=== PATIENT | female | born 2000 | race Caucasian/White ===

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

== ENCOUNTER 2021-06-14 17:26 | Emergency (ER) | payer MEDICAID, SELFPAY ==
[2021-06-14 17:26] VITALS: BP 122/83; PULSE 85; RESP 16; TEMP 36; O2SAT 100; BMI 27.8
--- NOTE | 2021-06-14 17:58 | ED.VIS.FEGU ---
HPI HPI - Female History of Present Illness Chief Complaint: Vag Bld, Preg Informant: patient Bleeding Issue: Positive for Vaginal bleeding Onset: Yesterday Context: Gradual Onset Associated Symptoms P: 1 Ab: 0 Narrative Narrative: Patient presents secondary to vaginal bleeding with . She states her last menstrual period was May 14. She had a couple home positive test. Yesterday she started spotting and today has slightly heavier bleeding. It is not as heavy as a regular. But she does have to wear a panty liner or pad. She does not have significant cramping or pain. This is her second , first only been complicated by premature . 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 PFSH PFSH Medical History no medical history no medical history Allergy/AdvReac Type Severity Reaction Status Date / Time sulfamethoxazole Allergy Rash Verified 06/14/21 17:29 [From Bactrim] trimethoprim [From Bactrim] Allergy Rash Verified 06/14/21 17:29 Social History Smoking Status: Former smoker ROS ROS ED Constitutional Constitutional ED: Denies chills or fever(s) Eyes Eyes: Denies change in vision ENT ENT ED: Denies sore throat Cardiovascular Cardiovascular: Denies chest pain Respiratory/Chest Respiratory/Chest: Denies cough or dyspnea Gastrointestinal Gastrointestinal: Denies abdominal pain, diarrhea, nausea or vomiting Genitourinary Genitourinary ED: Reports other Details: Vaginal bleeding ; Denies dysuria Musculoskeletal Musculoskeletal: Denies back pain Integumentary Denies rash Neurologic Neurologic: Denies headache(s) or weakness Psychiatric Psychiatric: Denies anxiety or depression Allergic/Immunologic Allergic/Immunologic ED: Denies urticaria EXAM Physical Exam Const Vital Signs: 06/14/21 17:26 Temperature 96.8 F L Temperature Source Temporal Pulse Rate 85 Respiratory Rate 16 Blood Pressure 122/83 H Blood Pressure Mean 96 Pulse Ox 100 Oxygen Delivery Method Room Air Positive well nourished and well developed General Appearance ED: well developed HEENT Reports normocephalic and head/scalp atraumatic Eyes PERRL and EOMs intact bilaterally Neck supple Chest Wall inspection of chest normal and palpation of chest normal Resp normal respiratory effort and clear to auscultation bilaterally Cardio regular rate and regular rhythm GI normal to inspection, nondistended, normoactive bowel sounds, soft to palpation and non-tender Palpation: soft Extremity normal to inspection Neuro oriented x3 and no sensory deficits noted Sensorium / Orientation: alert Motor Exam: strength 5/5 throughout Psych mental status grossly normal Skin no rashes or lesions noted [facility] Lab Data Labs: Laboratory Results - last 24 hr 06/14/21 06/14/21 18:20 18:20 HCG, Quant 12 H Blood Type O POSITIVE Discharge Plan Triage Chief Complaint: Vag Bld, Preg ED Provider: Marguerite Rick Dx/Rx/DC Orders Clinical Impression: Miscarriage, threatened, early Instructions: ED Possible Miscarriage ... Primary Care Provider: Care Physician,No Primary Referrals: Silvina Tidwell MD [STAFF PHYSICIAN] - As soon as possible Care Physician,No Primary [Primary Care Provider] - Disposition Disposition: Home, Self Care
[2021-06-14 19:34] LABS: hCG Titer Quant., Serum 12 mIU/mL (1-3)
[2021-06-14 21:06] VITALS: BP 131/66; PULSE 65; RESP 18; O2SAT 98
== END 2021-06-14 21:06 | disposition home or self-care (01) ==
PROVIDERS: Emergency Provider Emergency Medicine
DX: O20.0 Threatened abortion (principal); Z87.891 Personal history of nicotine dependence; Z3A.00 Weeks of gestation of pregnancy not specified
CPT/HCPCS: 84702; 86900; 86901; 99283; A4216

== ENCOUNTER → 2021-06-16 09:19 | Outpatient (CLI) | payer MEDICAID, SELFPAY ==
[2021-06-16 10:17] LABS: hCG Titer Quant., Serum 5 mIU/mL (1-3)
== END ==
PROVIDERS: Visit Provider Emergency Medicine
DX: O20.0 Threatened abortion (principal); Z3A.00 Weeks of gestation of pregnancy not specified
CPT/HCPCS: 36415; 84702

== ENCOUNTER 2023-02-22 22:34 | Emergency (ER) | payer MEDICAID, SELFPAY ==
[2023-02-22 22:35] VITALS: BP 129/76; PULSE 73; RESP 15; TEMP 36.4; O2SAT 98; BMI 30.2
--- NOTE | 2023-02-22 23:27 | EDS_ITS ---
HPI History of Present Illness Chief Complaint: Abd Pain Informant: patient Onset/Context/Timing Onset: Hours Timing: Waxes and wanes Current Severity: Mild Maximum Severity: Moderate Narrative Narrative: Patient presents with right lower quadrant pain for the past couple of hours. She is currently 14 weeks . She had no bleeding or spotting. No urinary symptoms. She still has her gallbladder and appendix. No fever or chills. She is able to eat dinner tonight without difficulty. PFSH PFSH Medical History no medical history no medical history Allergy/AdvReac Type Severity Reaction Status Date / Time sulfamethoxazole Allergy Rash Verified 06/14/21 17:29 [From Bactrim] trimethoprim [From Bactrim] Allergy Rash Verified 06/14/21 17:29 Social History Smoking Status: Former smoker ROS ROS ED Constitutional Constitutional ED: Denies chills or fever(s) Eyes Eyes: Denies change in vision or discharge from eye(s) ENT ENT ED: Denies discharge from eye(s), rhinorrhea or sore throat Cardiovascular Cardiovascular: Denies chest pain or palpitations Respiratory/Chest Respiratory/Chest: Denies cough or dyspnea Gastrointestinal Gastrointestinal: Reports abdominal pain; Denies diarrhea, nausea or vomiting Genitourinary Genitourinary ED: Denies dysuria Musculoskeletal Musculoskeletal: Denies back pain or extremity pain Integumentary Denies Abrasions or rash Neurologic Neurologic: Denies headache(s) or weakness Psychiatric Psychiatric: Denies anxiety or depression Allergic/Immunologic Allergic/Immunologic ED: Denies lip swelling or urticaria EXAM Physical Exam Const Vital Signs: 02/22/23 22:35 02/23/23 00:44 Temperature 97.5 F L Temperature Source Temporal Pulse Rate 73 62 Respiratory Rate 15 16 Blood Pressure 129/76 H 116/71 Blood Pressure Mean 93 86 Pulse Ox 98 98 Oxygen Delivery Method Room Air Room Air Positive well nourished and well developed General Appearance ED: well developed HEENT Reports normocephalic and head/scalp atraumatic Eyes PERRL and EOMs intact bilaterally Neck supple Chest Wall inspection of chest normal and palpation of chest normal Resp normal respiratory effort and clear to auscultation bilaterally Cardio regular rate and regular rhythm GI GI Narrative: Moderate tenderness in the right lower quadrant. No palpable masses. Hypoactive but present bowel sounds. No guarding or rebound. Palpation: soft Back/Spine no CVA tenderness Extremity normal to inspection Neuro oriented x3 and no sensory deficits noted Sensorium / Orientation: alert Motor Exam: strength 5/5 throughout Psych mental status grossly normal Skin no rashes or lesions noted MDM MDM MDM Narrative Medical decision making narrative: Labwork obtained to evaluate for leukocytosis, anemia, and electrolyte derangement. Urinalysis obtained to evaluate for infection/hematuria. Lab Data Attestation: I reviewed the patient's lab results. Labs: Laboratory Results - last 24 hr 02/22/23 23:20 WBC 13.0 H RBC 3.91 L Hgb 12.4 Hct 37.4 MCV 95.7 MCH 31.7 MCHC 33.2 RDW Std Deviation 43.8 RDW Coeff of Megha 12.5 Plt Count 285 MPV 11.1 Immature Gran % (Auto) 0.500 Neut % (Auto) 71.8 H Lymph % (Auto) 21.0 [place] % (Auto) 5.7 Eos % (Auto) 0.8 Baso % (Auto) 0.2 Absolute Neuts (auto) 9.4 H Absolute Lymphs (auto) 2.73 Nucleated RBC % 0 Sodium 137 Potassium 3.6 Chloride 105 Carbon Dioxide 25.0 Anion Gap 7 BUN 9 Creatinine 0.60 Estim Creat Clear Calc 109.10 Est GFR (MDRD) Af Amer 157 Est GFR (MDRD) Non-Af 130 BUN/Creatinine Ratio 15.0 Glucose 103 Calcium 9.0 Urine Color Yellow Urine Clarity Clear Urine pH 6.0 Ur Specific [place] 1.015 Urine Protein Negative Urine Glucose (UA) Normal Urine Ketones Negative Urine Occult Blood Negative Urine Nitrite Negative Urine Bilirubin Negative Urine Urobilinogen Normal Ur Leukocyte Esterase 25 H Urine RBC 0 SEEN Urine WBC 0-5 SEEN Ur Squamous Epith Cells 0-5 SEEN Urine Bacteria RARE Urine Mucus 0 SEEN Treatment and Re-Evaluation :: CBC reveals a white blood cell count of 13.0 with 72% neutrophils. Chemistry studies are unremarkable. Urinalysis reveals no evidence of infection. heart tones are measured at 163. On repeat evaluation patient continues to have focal tenderness in the right lower quadrant only. There is no guarding or rebound. I spoke with Dr. De La Garza. Given the patient has focal tenderness, I do still consider appendicitis on my differential. At this time she has no other symptoms of appendicitis. Was well recommended follow-up in their office later today. If the patient develops a fever or worsening pain she is to return to the emergency room. Just prior to discharge patient states that she did note a sore throat today and does get strep frequently. Rapid strep was obtained and negative at this time. Discharge Plan Triage Chief Complaint: Abd Pain ED Provider: Marguerite Rick Dx/Rx/DC Orders Clinical Impression: Second trimester , Abdominal pain Instructions: ED Abdominal Pain Unkn Cause Fem Primary Care Provider: Care Physician,No Primary Referrals: Taryn De La Garza DO [Med Staff - Active Staff] - 1 Day Care Physician,No Primary [Primary Care Provider] - Activity Restrictions/Additional Instructions: As discussed, please follow-up with the JEWELRY ENGRAVER office today. Please call the office 8 AM to be seen for repeat exam today. If you develop a fever or worsened symptoms, please return to the emergency room for further testing. Disposition Disposition: Home, Self Care
[2023-02-22 23:45] LABS: Absolute Lymphocyte Count 2.73 X10^3/uL (0.83-4.51); Absolute Neutrophil Count 9.4 X10^3/uL (2.0-7.7); Basophil# 0.02 X10^3/uL; Basophil% 0.2 % (0-1); Eosinophil# 0.11 X10^3/uL; Eosinophils% 0.8 % (0-5); Hematocrit 37.4 % (37-47); Hemoglobin 12.4 g/dL (12.0-15.0); Lymphocyte # 2.73 X10^3/ul (0.83-4.51); Mean Corp Hgb Conc 33.2 g/dL (32-36); Mean Corpuscular Hgb 31.7 pg (27.0-32.0); Mean Corpuscular Volume 95.7 fL (81-99); Mean Platelet Vol. 11.1 fl (6.2-12.0); Monocyte# 0.74 X10^3/uL; Monocyte% 5.7 % (0-10); Mucous, Urine 0 SEEN /hpf (<or=2+); NRBC Flagged by Analyzer 0 % (0-5); Neutrophil # 9.36 X10^3/uL (2.7-7.7); Neutrophil % 71.8 % (47-70); Platelet Count 285 K/mm3 (150-450); RBC Distribution Width CV 12.5 % (11.6-14.6); RBC Distribution Width SD 43.8 fl (35.1-43.9); Red Blood Cells-Urine 0 SEEN /hpf (0-5); Red Blood Count 3.91 M/mm3 (4.2-5.4)
[2023-02-22] MEDS: 0.9% Normal Saline 1,000 ML 150 ML IV (23:48)
[2023-02-22 23:56] LABS: Color, Urine Yellow (Yellow); Glucose, Dipstick Normal (Normal); Ketone-Dipstick Negative (Negative); Leukocyte Esterase-Dipstick 25 /ul (Negative); Nitrite-Dipstick Negative (Negative); Occult Blood-Urine Negative /ul (Negative); Protein-Dipstick Negative (Negative); Specific Gravity, Urine 1.015 (1.002-1.030); Urine Bilirubin Dipstick Negative (Negative); Urine Clarity Clear (Clear); Urine Urobilinogen Normal (Normal)
[2023-02-22 23:58] LABS: Anion Gap 7 (5-15); BUN 9 mg/dL (7-18); Chloride 105 mmol/L (98-107); EST Glomerular Filtration Rate 130 mL/min (>60); Est Glom Filt Rate - Afr Amer 157 mL/min (>60); Glucose 103 mg/dL (74-106); Potassium 3.6 mmol/L (3.5-5.1); Sodium Level 137 mmol/L (136-145)
[2023-02-23 00:16] LABS: Bacteria RARE /hpf (None Seen); Squamous Epithelial Cells - UA 0-5 SEEN /hpf (5-10); White Blood Cells 0-5 SEEN /hpf (0-5)
[2023-02-23 00:44] VITALS: BP 116/71; PULSE 62; RESP 16; O2SAT 98
[2023-02-23 01:26] VITALS: PULSE 76; RESP 16; O2SAT 98
== END 2023-02-23 01:30 | disposition home or self-care (01) ==
PROVIDERS: Emergency Provider Emergency Medicine; Visit Provider Emergency Medicine
DX: O26.892 Other specified pregnancy related conditions, second trimester (principal); O99.891 Other specified diseases and conditions complicating pregnancy; R10.31 Right lower quadrant pain; R11.0 Nausea; Z3A.14 14 weeks gestation of pregnancy; Z87.891 Personal history of nicotine dependence
CPT/HCPCS: 80048; 81001; 85025; 87880; 99284; A4216

== ENCOUNTER 2023-02-23 10:02 | Emergency (ER) | payer MEDICAID, SELFPAY ==
[2023-02-23 10:04] VITALS: BP 114/73; PULSE 97; RESP 14; TEMP 36.9; O2SAT 98; BMI 30.3
--- NOTE | 2023-02-23 10:33 | US_ITS ---
STUDY: SECOND AND THIRD TRIMESTER OBSTETRICAL ULTRASOUND - LIMITED REASON FOR EXAM: Female, 22 years old . Right lower quadrant pain. LMP: November 13, 2022. PRIOR ULTRASOUND: None. TECHNIQUE: Transabdominal TECHNICAL QUALITY: Adequate. FINDINGS: There is a single intrauterine fetus. The fetus is in a cephalic presentation. There is demonstrated cardiac activity with a heart rate of 158 bpm. There is a normal amniotic fluid volume. The amniotic fluid index (JOSH) is within normal limits. The placenta is posterior in location and is not low lying. There are Grade 0 placental changes. The cervix measures 3.2 cm in length. BIOMETRY: BPD: 2.8 cm: 15 weeks, 0 days HC: 10.3 cm: 14 weeks, 6 days AC: 8.5 cm: 4 weeks, 6 days FL: 1.4 cm: 14 weeks, 1 days Age by LMP: 14 weeks, 4 days. MARIANNA by LMP: August 20, 2023. age by current US: 14 weeks, 5 days. MARIANNA by current US: August 19, 2023. Estimated weight: 99 grams, +/- 15 grams, 30 percentile. US/OB Limited With Biometrics IMPRESSION: Single live intrauterine gestation with mean gestational age of 14 weeks and 5 days. Electronically Signed: Wing Mendoza MD at 12:43 EDT ,
--- NOTE | 2023-02-23 10:33 | ED.VIS.GI ---
HPI HPI - GI History of Present Illness Chief Complaint: Abd Pain Narrative Narrative: 22-year-old female currently 14 weeks presenting with right lower quadrant abdominal pain. She states she was seen for this last evening at [facility]. She states that they did discuss the possibility of an appendicitis given the patient has a little bit of an elevated white blood cell count at 13. Her pain started rather abruptly about 3 hours before she was seen in the ER last evening. She states she generally does not feel well. She denies diarrhea or constipation. She denies urinary complaints and actually had a negative urinalysis last night. She was checked for strep last night and this was negative. Patient given return precautions especially if she gets a fever and she thought she had a fever 100.7 today she did not take anything that would mask a fever and her temperature is 98.4 when she arrives. She again states she does not feel very well. She has no history of kidney stones. PFSH PFSH Allergy/AdvReac Type Severity Reaction Status Date / Time sulfamethoxazole Allergy Rash Verified 02/23/23 10:06 [From Bactrim] trimethoprim [From Bactrim] Allergy Rash Verified 02/23/23 10:06 Social History Smoking Status: Former smoker EXAM Physical Exam Const Vital Signs: 02/23/23 10:04 02/23/23 12:33 02/23/23 14:42 Temperature 98.4 F Temperature Source Temporal Pulse Rate 97 82 78 Respiratory Rate 14 16 16 Blood Pressure 114/73 129/63 H 119/84 H Blood Pressure Mean 86 85 95 Pulse Ox 98 Oxygen Delivery Method Room Air Room Air Positive well nourished General Appearance ED: NAD; Negative for pallor HEENT Reports moist mucous membranes normocephalic and atraumatic Eyes PERRL and EOMs intact bilaterally Resp normal respiratory effort Cardio regular rate and regular rhythm GI Palpation: tender RLQ Back/Spine no CVA tenderness Neuro CN's II-XII intact bilaterally Sensorium / Orientation: alert, oriented to person, oriented to place and oriented to time Motor Exam: strength 5/5 throughout Psych mental status grossly normal Skin General Skin Exam: Negative for jaundice or pallor MDM MDM MDM Narrative Medical decision making narrative: Patient presenting again with right-sided lower abdominal pain. She was given precautions to return if she develops a fever and had a fever 100.7 today and did not take anything. She arrives afebrile. Vital signs are stable. She is well-appearing. She does have tenderness in the right lower quadrant. She has confirmed intrauterine by ultrasound and has not had a history of an ectopic. I will test her for COVID and influenza as this not been checked. IV will be established and I will obtain CBC to assess white blood cell count, hemoglobin, platelets. CMP to assess liver function, renal function, electrolytes. hCG quantitative. After discussion with the patient we will obtain a obstetric ultrasound prior to any CT imaging. She declined anything for pain or nausea. Patient's white blood cell count is 12.0 which is slightly lower however she has more of a left shift today. CMP was unremarkable. Serum quant 17,074. Obstetrics ultrasound was obtained and shows a live intrauterine at 14 weeks 5 days. No ectopic is noted. patient continued to have pain and we discussed getting a CAT scan to rule out appendicitis given her right lower quadrant pain. We discussed the risk and benefits. She wants to have the CT done. I recommended for going to do the CT we do with oral and IV contrast and she was amenable to this. This was obtained and was ultimately negative for appendicitis. 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 Return precautions were discussed. Impression: 1. Right lower quadrant abdominal pain 2. Nausea 3. Second trimester Lab Data Attestation: I reviewed the patient's lab results. Labs: Laboratory Results - last 24 hr 02/23/23 02/23/23 10:15 10:58 WBC 12.0 H RBC 4.23 Hgb 13.3 Hct 40.6 MCV 96.0 MCH 31.4 MCHC 32.8 RDW Std Deviation 44.7 H RDW Coeff of Megha 12.6 Plt Count 271 MPV 11.7 Immature Gran % (Auto) 0.300 Neut % (Auto) 88.9 H Lymph % (Auto) 5.4 L [place] % (Auto) 4.8 Eos % (Auto) 0.3 Baso % (Auto) 0.3 Absolute Neuts (auto) 10.6 H Absolute Lymphs (auto) 0.64 L Nucleated RBC % 0 Sodium 137 Potassium 4.0 Chloride 107 Carbon Dioxide 23.0 Anion Gap 7 BUN 6 L Creatinine 0.65 Estim Creat Clear Calc 100.71 Est GFR (MDRD) Af Amer 145 Est GFR (MDRD) Non-Af 120 BUN/Creatinine Ratio 9.3 L Glucose 86 Calcium 9.0 Total Bilirubin 0.40 AST 23 ALT 21 Alkaline Phosphatase 63 Total Protein 7.2 Albumin 3.1 L Globulin 4.1 Albumin/Globulin Ratio 0.8 L Lipase 24 HCG, Quant [id number] H Radiography Diagnostic Testing: Clinical Impression(s) from Imaging Studies Obstetrics Ultrasound 02/23/23 10:33 IMPRESSION: Single live intrauterine gestation with mean gestational age of 14 weeks and 5 days. Electronically Signed: Wing Mendoza MD at 12:43 EDT , Abdomen/Pelvis CT 02/23/23 14:28 IMPRESSION: No acute abnormalities in the abdomen or pelvis. Specifically, no evidence of acute appendicitis. Minimal bilateral hydroureteronephrosis most likely related to . Electronically Signed: Mike Cisneros MD at 17:22 EDT , Discharge Plan Triage Chief Complaint: Abd Pain ED Provider: Derek Lopez Dx/Rx/DC Orders Instructions: ED Abdominal Pain Unkn Cause Fem, ED Abdominal Pain, Early Primary Care Provider: Care Physician,No Primary Referrals: Taryn De La Garza DO [Med Staff - Active Staff] - As soon as possible Care Physician,No Primary [Primary Care Provider] - Disposition Disposition: Home, Self Care Discharge Date/Time: 02/23/23 17:41
[2023-02-23 10:58] LABS: Absolute Lymphocyte Count 0.64 X10^3/uL (0.83-4.51); Absolute Neutrophil Count 10.6 X10^3/uL (2.0-7.7); Basophil# 0.03 X10^3/uL; Basophil% 0.3 % (0-1); Eosinophil# 0.04 X10^3/uL; Eosinophils% 0.3 % (0-5); Hematocrit 40.6 % (37-47); Hemoglobin 13.3 g/dL (12.0-15.0); Lymphocyte # 0.64 X10^3/ul (0.83-4.51); Lymphocyte % 5.4 % (19-41); Mean Corp Hgb Conc 32.8 g/dL (32-36); Mean Corpuscular Hgb 31.4 pg (27.0-32.0); Mean Platelet Vol. 11.7 fl (6.2-12.0); Monocyte# 0.58 X10^3/uL; Monocyte% 4.8 % (0-10); NRBC Flagged by Analyzer 0 % (0-5); Neutrophil # 10.63 X10^3/uL (2.7-7.7); Neutrophil % 88.9 % (47-70); Platelet Count 271 K/mm3 (150-450); RBC Distribution Width CV 12.6 % (11.6-14.6); RBC Distribution Width SD 44.7 fl (35.1-43.9); Red Blood Count 4.23 M/mm3 (4.2-5.4)
--- NOTE | 2023-02-23 11:02 | CM.ED ---
Social Work Note Referral Source: case find Referral Reason: no PCP SW met with patient and introduced herself and role as [facility] Claims Consultant. Patient lying on hospital bed and agreeable to speak with SW with guest present. SW inquired about patient's insurance and current PCP. Patient verified insurance and reports no current PCP. SW provided patient with a list of local PCPs in network with patient's insurance and accepting new patients. Patient was receptive towards list and voiced no other needs. SW remains available if needs arise. Yu Gomez AIRPORT DUTY MANAGER, KATHY
[2023-02-23 11:20] LABS: ALB/GLOB Ratio 0.8 RATIO (0.9-2.4); AST(SGOT) 23 U/L (15-37); Alanine Aminotransfer ALT/SGPT 21 U/L (13-56); Albumin, Serum 3.1 g/dL (3.2-5.0); Alkaline Phosphatase 63 U/L (45-117); Anion Gap 7 (5-15); BUN 6 mg/dL (7-18); BUN/Creat Ratio 9.3 RATIO (10-20); Chloride 107 mmol/L (98-107); Creatinine, Serum 0.65 mg/dL (0.55-1.02); EST Glomerular Filtration Rate 120 mL/min (>60); Est Glom Filt Rate - Afr Amer 145 mL/min (>60); Estimated Creatinine Clearance 100.71 ml/min; Globulin 4.1 g/dL (2.2-4.2); Glucose 86 mg/dL (74-106); Lipase 24 U/L (13-75); Protein, Total 7.2 g/dL (6.4-8.2); Sodium Level 137 mmol/L (136-145)
[2023-02-23 12:00] LABS: hCG Titer Quant., Serum 17074 mIU/mL (1-3)
[2023-02-23 12:33] VITALS: BP 129/63; PULSE 82; RESP 16
--- NOTE | 2023-02-23 14:28 | CT_ITS ---
INDICATION: rlq abd pain -- IV PO Contrast EXAMINATION: CT Abdomen And Pelvis W/ Contrast Injection TECHNIQUE: Helically acquired images were obtained of the abdomen and pelvis after IV contrast. A radiation dose optimization technique was used for this scan. IV Contrast dosage and agent: Oral and amp; IV Gastrografin and amp; 100mL [id number]-[id number] Oral contrast: None. COMPARISON: None. FINDINGS: Visualized lung bases: Unremarkable Liver: Unremarkable Gallbladder: Unremarkable Spleen: Unremarkable Pancreas: Unremarkable Adrenal Glands: Unremarkable Kidneys: minimal bilateral hydroureteronephrosis. Vasculature: Unremarkable GI Tract: The appendix is normal. Lymphadenopathy: None Peritoneum: No ascites. Bladder: Unremarkable Reproductive organs: Single intrauterine gestation visualized. Bones/Soft tissues: No suspicious osseous or soft tissue lesions CT/Abdomen/Pelvis WITH Contrast IMPRESSION: No acute abnormalities in the abdomen or pelvis. Specifically, no evidence of acute appendicitis. Minimal bilateral hydroureteronephrosis most likely related to . Electronically Signed: Mike Cisneros MD at 17:22 EDT ,
[2023-02-23] MEDS: Contrast Allergy Safety Check IV (14:39)
[2023-02-23 14:42] VITALS: BP 119/84; PULSE 78; RESP 16
[2023-02-23] MEDS: Acetaminophen 325 MG Tablet 650 MG PO (17:35)
== END 2023-02-23 17:41 | disposition home or self-care (01) ==
PROVIDERS: Emergency Provider Student in an Organized Health Care Education/Training Program; Visit Provider Student in an Organized Health Care Education/Training Program
DX: O26.892 Other specified pregnancy related conditions, second trimester (principal); O99.891 Other specified diseases and conditions complicating pregnancy; R10.31 Right lower quadrant pain; R11.0 Nausea; Z3A.14 14 weeks gestation of pregnancy; Z87.891 Personal history of nicotine dependence
CPT/HCPCS: 74177; 76816; 80053; 83690; 84702; 85025; 87428; 99284; Q9967; A4216

== ENCOUNTER 2023-08-03 16:20 | Inpatient (IN) | payer MEDICAID, SELFPAY ==
[2023-08-03] VITALS (26 sets, daily range): BP systolic 115–151; BP diastolic 57–97; PULSE 78–104; TEMP 36.5–37.8; O2SAT 97–100; BMI 34.7
--- NOTE | 2023-08-03 13:07 | OB.TRI.NOTE ---
HPI - General General Date of Admission: 08/03/23 Date of Service: 08/03/23 Chief Complaint: vaginal bleeding HPI Narrative COLLIN HWANG, is a 22 3 para 1 who had a cervical exam 2 days ago and denies any other trauma or intercourse presents complaining of some small amount of vaginal bleeding. She feels some irregular contractions. No leaking of fluid. No other complaints today. Maternal Data Information Final MARIANNA: 08/20/23 Gestational age: 37 4/7 PFSH PFSH Allergy/AdvReac Type Severity Reaction Status Date / Time sulfamethoxazole Allergy Rash Verified 08/03/23 07:02 [From Bactrim] trimethoprim [From Bactrim] Allergy Rash Verified 08/03/23 07:02 Social History Smoking Status: Former smoker Physical Exam Narrative Abdomen: Soft, nondistended, gravid appropriate for gestational age Extremities trace edema. Cervical exam: 3/70/-2, no blood on exam, vtx NST FHR Rate Baby A Baseline: 135 Variability:: Moderate Accelerations:: 15 x 15 Decelerations:: None NST Reactive:: Yes FHR Category:: Category I Uterine Activity:: irreg ctxs Assessment & Plan (1) 37 weeks gestation of : PLAN: No active vaginal bleeding. heart tones category 1 for more than 20 minutes for discharge. No evidence of labor. Follow-up in the office as scheduled or return as needed. Patient is comfortable with plan. O+ blood type (2) False labor after 37 completed weeks of gestation:
[2023-08-03 16:17] LABS: ROM Internal Control Test YES-OK TO RESULT pt. (Internal QC)
[2023-08-03 16:21] LABS: ROM Patient Test POSITIVE (Negative); Record Kit Lot#, ROM+ K1374
[2023-08-03] MEDS: Lactated Ringers 1,000 ML 50 ML IV (17:00)
[2023-08-03 17:13] LABS: Absolute Lymphocyte Count 2.76 X10^3/uL (0.83-4.51); Absolute Neutrophil Count 12.4 X10^3/uL (2.0-7.7); Basophil# 0.08 X10^3/uL; Basophil% 0.5 % (0-1); Eosinophil# 0.08 X10^3/uL; Eosinophils% 0.5 % (0-5); Hematocrit 34.8 % (37-47); Hemoglobin 11.5 g/dL (12.0-15.0); Lymphocyte # 2.76 X10^3/ul (0.83-4.51); Mean Corpuscular Hgb 31.8 pg (27.0-32.0); Mean Corpuscular Volume 96.1 fL (81-99); Mean Platelet Vol. 10.6 fl (6.2-12.0); Monocyte# 0.82 X10^3/uL; Monocyte% 5.1 % (0-10); NRBC Flagged by Analyzer 0 % (0-5); Neutrophil # 12.38 X10^3/uL (2.7-7.7); Neutrophil % 76.2 % (47-70); Platelet Count 375 K/mm3 (150-450); RBC Distribution Width CV 12.3 % (11.6-14.6); RBC Distribution Width SD 43.5 fl (35.1-43.9); Red Blood Count 3.62 M/mm3 (4.2-5.4); White Blood Count 16.2 K/mm3 (4.4-11.0)
[2023-08-03] MEDS: Penicillin G Pot 5,000,000 UNITS in 0.9% Normal Saline (100mL MB+) 100 ML 150 UNITS IV (17:17)
[2023-08-03 18:30] LABS: Syphilis Antibodies Non-reactive
[2023-08-03] MEDS: Oxytocin 15 Units/NS 250ml 15 UNITS/250 ML IV.SOLN 2 UNITS IV (19:28)
[2023-08-03] MEDS: Penicillin G 3,000,000 Units 50 ML 100 UNITS IV (21:09)
[2023-08-03] MEDS: LACTATED RINGERS 500 ML 999 ML IV (22:47)
[2023-08-03] MEDS: 0.9% Saline Lock 10 ML Syringe IV (22:55)
[2023-08-03] MEDS: Ondansetron 4 MG/2 ML Vial IV (22:55)
[2023-08-03] MEDS: fentaNYL-bupivacaine (epidural) 100 ML BAG EPIDURAL (23:32)
[2023-08-04] VITALS (38 sets, daily range): BP systolic 104–130; BP diastolic 53–67; PULSE 65–101; RESP 16–18; TEMP 36.3–36.9; O2SAT 92–99
--- NOTE | 2023-08-04 00:23 | PCM.HP.OB ---
HPI - General General Date of Admission: 08/03/23 Date of Service: 08/03/23 Chief Complaint: leaking of fluid HPI Narrative COLLIN HWANG, is a 22 F 3 para 1-0-1-1 1 who presents complaining of irregular contractions with spontaneous rupture of membranes on 08/03/2023 at approximately 3:15 PM. is complicated to date by history of a delivery at 31 weeks with her previous child. She had a short cervix during the and was on progesterone. Social history significant for tobacco use but quit when she found out she was . Past medical history significant for a positive herpes blood test but no history of outbreaks. Maternal Data Information Final MARIANNA: 08/20/23 Gestational age: 37 4/ 7 [facility] Medical History (Updated 08/04/23 @ 00:[address] Carito Samaniego MD) Cystic fibrosis carrier Genital herpes affecting History of pre-term labor depression Allergy/AdvReac Type Severity Reaction Status Date / Time sulfamethoxazole Allergy Rash Verified 08/03/23 07:02 [From Bactrim] trimethoprim [From Bactrim] Allergy Rash Verified 08/03/23 07:02 Social History Smoking Status: Former smoker History Elective abortions Hx Para 1 Spontaneous abortions Hx # Term Pregnancies Ectopic pregnancies Hx # Pregnancies Multiple births # of living children ROS Constitutional Constitutional: Denies fatigue, fever(s) or malaise Eyes Eyes: Denies change in vision ENT HEENT: Denies dizziness or headache(s) Cardiovascular Cardiovascular: Denies chest pain, dyspnea or lightheadedness Respiratory/Chest Respiratory/Chest: Denies cough or dyspnea Gastrointestinal Gastrointestinal: Denies change in bowel habits Genitourinary Genitourinary: Denies burning urination or genital lesions Integumentary Integumentary: Denies rash Neurologic Neurologic: Denies confusion, dizziness, headache(s), numbness or weakness Vital Signs Vital Signs Vital Signs: 08/03/23 06:56 08/03/23 06:57 08/03/23 06:57 Temperature Temperature Source Temporal Pulse Rate 82 Blood Pressure 121/71 H BP Systolic 121 BP Diastolic 71 Pulse Ox 08/03/23 06:56 08/03/23 07:39 08/03/23 07:39 Temperature 98.0 F 98.1 F Temperature Source Temporal Pulse Rate Blood Pressure BP Systolic BP Diastolic Pulse Ox 08/03/23 07:41 08/03/23 07:41 08/03/23 16:18 Temperature Temperature Source Pulse Rate 78 Blood Pressure 128/68 H 123/66 H BP Systolic 128 123 BP Diastolic 68 66 Pulse Ox 08/03/23 16:18 08/03/23 17:15 08/03/23 17:15 Temperature Temperature Source Pulse Rate 83 90 Blood Pressure 120/74 BP Systolic 120 BP Diastolic 74 Pulse Ox 08/03/23 19:19 08/03/23 19:19 08/03/23 19:20 Temperature Temperature Source Temporal Pulse Rate 87 Blood Pressure 122/69 H BP Systolic 122 BP Diastolic 69 Pulse Ox 08/03/23 19:20 08/03/23 19:20 08/03/23 16:18 Temperature 99.1 F Temperature Source Tympanic Pulse Rate 90 Blood Pressure BP Systolic BP Diastolic Pulse Ox 08/03/23 16:18 08/03/23 18:00 08/03/23 18:00 Temperature 100.0 F H 99.3 F H Temperature Source Tympanic Pulse Rate Blood Pressure BP Systolic BP Diastolic Pulse Ox 08/03/23 20:08 08/03/23 20:09 08/03/23 20:09 Temperature Temperature Source Temporal Pulse Rate 80 Blood Pressure 128/64 H BP Systolic 128 BP Diastolic 64 Pulse Ox 08/03/23 20:08 08/03/23 21:09 08/03/23 21:09 Temperature 98.0 F Temperature Source Pulse Rate 80 Blood Pressure 129/73 H BP Systolic 129 BP Diastolic 73 Pulse Ox 08/03/23 21:09 08/03/23 21:09 08/03/23 21:09 Temperature 98.2 F Temperature Source Temporal Pulse Rate 88 Blood Pressure BP Systolic BP Diastolic Pulse Ox 08/03/23 22:09 08/03/23 22:09 08/03/23 22:09 Temperature Temperature Source Pulse Rate 82 Blood Pressure 128/97 H BP Systolic 128 BP Diastolic 97 Pulse Ox 97 08/03/23 22:10 08/03/23 22:10 08/03/23 23:00 Temperature 98.6 F Temperature Source Temporal Temporal Pulse Rate Blood Pressure BP Systolic BP Diastolic Pulse Ox 08/03/23 23:00 08/03/23 23:00 08/03/23 23:00 Temperature Temperature Source Pulse Rate 98 Blood Pressure 115/57 L BP Systolic 115 BP Diastolic 57 Pulse Ox 99 08/03/23 23:00 08/03/23 23:19 08/03/23 23:19 Temperature 97.7 F L Temperature Source Pulse Rate 96 Blood Pressure 124/70 H BP Systolic 124 BP Diastolic 70 Pulse Ox 08/03/23 23:18 08/03/23 23:24 08/03/23 23:24 Temperature Temperature Source Pulse Rate 84 Blood Pressure 119/60 BP Systolic 119 BP Diastolic 60 Pulse Ox 100 08/03/23 23:23 08/03/23 23:31 08/03/23 23:31 Temperature Temperature Source Pulse Rate 104 H Blood Pressure 151/89 H BP Systolic 151 BP Diastolic 89 Pulse Ox 100 08/03/23 23:34 08/03/23 23:34 08/03/23 23:39 Temperature Temperature Source Pulse Rate 93 99 Blood Pressure 131/82 H BP Systolic 131 BP Diastolic 82 Pulse Ox 08/03/23 23:39 08/03/23 23:40 08/03/23 23:40 Temperature Temperature Source Pulse Rate 99 Blood Pressure 133/80 H BP Systolic 133 BP Diastolic 80 Pulse Ox 100 08/03/23 23:43 08/03/23 23:43 08/03/23 23:50 Temperature Temperature Source Pulse Rate 103 H Blood Pressure 128/72 H 127/71 H BP Systolic 128 127 BP Diastolic 72 71 Pulse Ox 08/03/23 23:50 08/03/23 23:49 Temperature Temperature Source Pulse Rate 100 Blood Pressure BP Systolic BP Diastolic Pulse Ox 100 Weight Weight: 83.461 kg Body Mass Index (BMI) 34.7 Physical Exam Const alert and no apparent distress General Appearance: cooperative HEENT normocephalic Resp normal respiratory effort Cardio regular rate GI soft to palpation GI Narrative: gravid, nontender, appropriate for gestational age Extremity no calf tenderness General Extremity: edema Skin no wounds Rashes: No rashes noted Psych activity/motor behavior normal Labs Labs Labs: Blood Type O POSITIVE Antibody Screen NEGATIVE Hct 34.8 % (37-47) L Hgb 11.5 g/dL (12.0-15.0) L Obstetrics Ultrasound Syphilis Total Ab Non-reactive Assessment & Plan (1) 37 weeks gestation of : PLAN: 37-4/7 weeks gestation on 08/03/2023 upon admission. May have routine pain control measures as needed. Estimated weight is less than 4500 g and pelvis clinically adequate to expect vaginal delivery. Pitocin augmentation as needed. (2) Spontaneous onset of labor:
--- NOTE | 2023-08-04 01:15 | EX.PCM.OBRPT ---
Assessment & Plan (1) Spontaneous onset of labor: (2) 37 weeks gestation of : Maternal Data Information Final MARIANNA: 08/20/23 Gestational age: 37 5/7 Vaginal Delivery Maternal Presentation Maternal Presentation: Active Labor and Spontaneous Rupture of Membranes Operative Information Date of Procedure: 08/04/23 Pre-Operative Diagnosis: maternal exhaustion Post-Operative Diagnosis: same Surgery / Procedure Performed: Vacuum Assisted Vaginal Delivery (outlet) Type of Anesthesia: Epidural Drain: - (none) Estimated Blood Loss: 200 Time of Delivery: 01:02 Findings Description of Procedure: The patient had been pushing for an hour. There had been some descent. Position was RADHA. Straight cath was performed. Epidural was adequate. She was becoming fatigued. She had been labia for the same amount for the last 30 minutes. She was pushing adequately. Risk benefits and alternatives to trial of vacuum-assisted vaginal delivery were discussed with the patient and her partner, questions were answered and they desire to proceed. The vacuum was placed on the flexion point and vacuum created 550 mmHg. I pulled with 1 pull to . There were no pop offs. The vacuum was removed. A vigorous male infant was delivered RADHA over small first-degree perineal laceration. A loose nuchal cord ?1 was easily reduced. The remainder the was delivered with maternal pushing and gentle traction only in less than 15 seconds. The Pitocin infusion was initiated for active management of the third stage. The cord was clamped and cut after cord pulsations ceased. Cord blood was collected. A section of cord had been handed off to the nurses for collection of cord gases. The was attended to by the waiting nursing staff. The placenta was delivered spontaneously and intact. The cervix and vagina were intact. The small first-degree perineal laceration was repaired with 3-0 Vicryl Rapide with 2 interrupted sutures. Sponge and needle counts were correct. A vaginal sweep was completed by me. Presentation: RADHA Amniotic Membrane Rupture Type: Spontaneous Amniotic Fluid Description: Clear Placental Delivery Description: Spontaneous Placenta Disposition: [facility] Cord Vessel Description: 3 Vessels Cord Entanglement: Around neck x 1, loose Nuchal Cord Compression: Without compression Cord Gases: ABG and VBG Infant A Gender: Male (Davis) (1 minute): 9 (5 minute): 9 Delayed Cord Clamping: Yes Post Vaginal Delivery Medications Given After Delivery: IV Pitocin Episiotomy Description: None Laceration: 1st degree Complication Complications: None
[2023-08-04] MEDS: Oxytocin 15 Units/NS 250ml 15 UNITS/250 ML IV.SOLN 83 UNITS IV (01:35)
[2023-08-04] MEDS: Acetaminophen 500 MG Tablet 1000 MG PO (12:28)
[2023-08-05 01:13] VITALS: BP 115/63; PULSE 76; O2SAT 97
[2023-08-05 01:15] VITALS: BP 115/63; PULSE 80; RESP 16; TEMP 37.1; O2SAT 97
[2023-08-05 07:46] VITALS: BP 110/60; PULSE 61; RESP 16; TEMP 36.9; O2SAT 95
[2023-08-05 07:47] VITALS: BP 110/60; PULSE 63
--- NOTE | 2023-08-05 09:41 | PCM.PN.OB ---
Subjective Subjective Denies complaints Objective Data Objective Data Vital Signs: Vital Signs Temp Pulse Resp BP Pulse Ox O2 Del Method 98.4 F 63 16 110/60 95 Room Air 08/05/23 07:46 08/05/23 07:47 08/05/23 07:46 08/05/23 07:47 08/05/23 07:46 08/05/23 07:46 Oxygen Delivery Method Room Air Weight: 184 lb Body Mass Index (BMI) 34.7 Intake & Output: Intake and Output for Last 24 Hours 08/03/23 08/04/23 08/05/23 23:59 23:59 23:59 Intake Total 483.43 / 483.43 1323.24 / 1323.24 Output Total 630 / 630 Balance 483.43 / 483.43 693.24 / 693.24 Lab / Micro Data 08/03/23 17:00 Physical Exam Const alert, oriented x3 and no apparent distress HEENT normocephalic GI soft to palpation, non-tender and non-distended GI Narrative: fundus firm, mid & below umbilicus Extremity normal to inspection and no calf tenderness Assessment & Plan (1) Vaginal delivery: COMMENT: PPD#1 PLAN: Plan D/c home
--- NOTE | 2023-08-05 09:46 | PCM.DC.SUM ---
Providers Date of Admission: 08/03/23 Primary Care Physician: Diana Primary Care Phys Reason For Visit: VAG Diagnosis Discharge Diagnosis (1) Vaginal delivery: Status: Acute Code(s): O80 - Encounter for full-term uncomplicated delivery Plan D/c home Medications at Discharge Home Medications acetaminophen 500 mg tablet 1,000 mg (2 x 500 mg) PO Q6H PRN PRN Pain 1-10 Or Fever #0 tabs 08/05/23 ibuprofen 600 mg tablet 600 mg PO Q6H PRN PRN Pain Score 1-10 #0 tabs 08/05/23 Hospital Course Summary of Care Provided Minutes Spent on Discharge: 15 Physical Exam Const alert and oriented x3 Chest inspection of chest normal GI soft to palpation, non-tender and non-distended Weight / BMI Weight Weight: 184 lb Body Mass Index (BMI) 34.7 ABG / Lab / Microbiology Data 08/03/23 17:00 D/C Instructions Discharge Diet: No restrictions Discharge Activity: May Shower May resume sexual activity in: 6 weeks Weight Bearing Status: Weight bearing as tolerated Call your doctor if you observe: Fever of 101 or Higher, Coldness, Increased Pain, Change in Color, Inability to urinate, Inability to have a bowel movement, Using more than 1 pad per hour, Shortness of breath, Dizziness, Fainting spells, Chest pain, Increased palpitations (irregular heartbeat), Calf discomfort and Uncontrolled pain Please Follow Up With: Silvina Tidwell MD When: Follow up in 2 and 6 weeks for visits. Meaningful Use Info Meaningful Use Diagnoses (Choose all that apply): None applicable Discharge Plan Admission Admit Date/Time: 08/03/23 16:20 Primary Reason for Your Visit: Vaginal delivery Attending Provider: Carito Samaniego Primary Care Provider: Care Physician,No Primary Consulting Providers: Diana Contreras Instructions Additional Instructions / Restrictions: Keep next office appointment. Discharge Orders/Prescriptions Prescriptions: New acetaminophen 500 mg Tablet 1,000 mg PO Q6H PRN PRN (Reason: Pain 1-10 Or Fever) Qty: 0 0RF ibuprofen 600 mg Tablet 600 mg PO Q6H PRN PRN (Reason: Pain Score 1-10) Qty: 0 0RF Referrals / Follow Up: Care Physician,No Primary [Primary Care Provider] - Disposition Disposition (needs filled in before D/C Order can be placed): Home, Self Care
== END 2023-08-05 11:45 | disposition home or self-care (01) | DRG 560 ==
LOC: WPOUT 16:31 → WP 16:31
PROVIDERS: Admitting Provider Obstetrics & Gynecology; Referring Provider Obstetrics & Gynecology; Visit Provider Obstetrics & Gynecology
DX: O42.02 Full-term premature rupture of membranes, onset of labor within 24 hours of rupture (principal); Z37.0 Single live birth; O69.81X0 Labor and delivery complicated by cord around neck, without compression, not applicable or unspecified; O70.0 First degree perineal laceration during delivery; O75.81 Maternal exhaustion complicating labor and delivery; Z3A.37 37 weeks gestation of pregnancy; Z87.59 Personal history of other complications of pregnancy, childbirth and the puerperium; Z87.891 Personal history of nicotine dependence
CPT/HCPCS: 59025; 59050; 84112; 85025; 86780; 86850; 86900; 86901; 99221; J7120; A4216; G0378; J2405

== ENCOUNTER 2023-09-15 22:13 | Observation (INO) | payer MEDICAID, SELFPAY ==
[2023-09-15 22:14] VITALS: BP 133/64; PULSE 89; RESP 16; TEMP 36.7; O2SAT 100; BMI 30.8
--- OUTSIDE RECORDS SUMMARY | 2023-09-15 22:31 | XMS RPT_ITS | CCD ---
Author Name Unknown Address [id number] [place] [address] Organization [facility] Care Team Providers Care Unit Nurse Name Role Phone Elsie WAGGONER, Nikko Howard Primary Care Provider DIANA KAUFFMAN Referring Unavailable NIKKO ZIMMERMAN Primary Care UnavailANGÉLICA Silva Attending Unavailable NIKKO ZIMMERMAN Primary Care Unavailab ANGÉLICA Brooks Attending Unavailable NIKKO ZIMMERMAN Primary Care Unavailab NIKKO Vargas Primary Care Unavailab JOSE CroninCA Thad Referring Unavailable NICOLÁS WILLIS Attending Unavailable NIKKO ZIMMERMAN Primary Care Unavailab GUNJAN Cronin Referring Unavailable NIKKO ZIMMERMAN Primary Care Unavailab GUNJAN Cronin Attending Unavailable ANGÉLICA LIMA Attending Unavailable NIKKO ZIMMERMAN Primary Care Unavailab ANGÉLICA Brooks Attending Unavailable NIKKO ZIMMERMAN Primary Care Unavailab LEENA Higgins Attending Unavailable NIKKO ZIMMERMAN Primary Care Unavailab DIANA Samuel Referring Unavailable NIKKO ZIMMERMAN Primary Care Unavailab NIKKO Vargas Primary Care Unavailab QUANG Gimenez Attending Unavailable NIKKO ZIMMERMAN Primary Care Unavailab GUNJAN Cronin Attending Unavailable NIKKO ZIMMERMAN Primary Care Unavailab DIANA Samuel Attending Unavailable NIKKO ZIMMERMAN Primary Care Unavailab nico BLACKWOOD, GUNJAN Thad Referring Unavailable NIKKO ZIMMERMAN Primary Care Unavailab nico BLACKWOOD, GUNJAN Thad Referring Unavailable NIKKO ZIMMERMAN Primary Care Unavailab DIANA Samuel Attending Unavailable NIKKO ZIMMERMAN Primary Care Unavailab le NIKKO ZIMMERMAN Primary Care Unavailab le NIKKO ZIMMERMAN Primary Care Unavailab WILLY Mendoza Attending Unavailable ELSIE, NIKKO [facility] Unavailab QUANG Gimenez Referring Unavailable ELSIE, NIKKO [facility] Unavailab nico BLACKWOOD, GUNJAN L Attending Unavailable ELSIE, NIKKO [facility] Unavailab nico BLACKWOOD, GUNJAN L Attending Unavailable JAISON, GUNJAN L Referring Unavailable COLLIN MUIR Attending Unavailable ELSIE, NIKKO [facility] Unavailab DIANA Samuel Attending Unavailable ELSIE, NIKKO [facility] Unavailab le ELSIE, NIKKO [facility] Unavailab le ELSIE, NIKKO [facility] Unavailab nico BLACKWOOD, GUNJAN L Referring Unavailable [facility] BLACKWOOD[facility] GUNJAN L Referring Unavailable Allergies Allergy Classification Reported Allergen(s) Allergy Type Date of Onset Reaction(s) Facility (20 sources) Sulfamethoxazole / Trimethoprim; Translations: [SULFAMETHOXAZOLE-TRI METHOPRIM] Drug Allergy 6 Unknown [facility] Medications Current Medications Medication Drug Class(es) Dates Sig (Normalized) Sig (Original) amoxicillin 500 mg oral capsule (1 source) Penicillin-class Antibacterial Start: 09-30-2022 End: 10-10-2022 take 1 capsule by mouth twice daily amoxicillin (POLYMOX, AMOXIL) 500 mg capsule Indications: Strep throat Take 1 capsule by mouth twice daily for 10 days. 20 capsule 0 09/30/2022 10/10/2022 Active Completed/Discontinued Medications Medication Drug Class(es) Dates Sig (Normalized) Sig (Original) prental multivitamin 27 mg iron- 800 mcg tablet (20 sources) take 1 tablet by mouth once daily prental multivitamin 27 mg iron- 800 mcg tablet Take 1 tablet by mouth once daily. 0 Active Problems Active Problems Problem Classification Problem Date Documented Da te Episodic/Chronic Bacterial infection; unspecified site (3 sources) Bacteria present; Translations: [Streptococcus, group B, as the cause of diseases classified elsewhere] Onset: 07-30-2023 08-01-2023 Episodic Immunizations and screening for infectious disease (3 sources) Suspected disease caused by 2019-nCoV; Translations: [Suspected COVID-19 virus infection] Episodic Other complications of (1 source) Maternal obesity complicating , childbirth and the puerperium, antepartum; Translations: [Obesity complicating , second trimester] 03-29-2023 Chronic Other complications of (1 source) ; Translations: [ with inconclusive viability, not applicable or unspecified] Episodic Other complications of (1 source) Short cervical length in ; Translations: [Cervical shortening, unspecified trimester] 04-30-2023 Episodic Other connective tissue disease (1 source) Swelling of lower limb; Translations: [Other specified soft tissue disorders] 04-23-2023 Episodic Other upper respiratory infections (2 sources) Sore throat symptom; Translations: [Acute pharyngitis, unspecified] Episodic Poisoning by nonmedicinal substances (1 source) Insect sting; Translations: [Toxic effect of venom of other arthropod, accidental (unintentional), initial encounter] 04-23-2023 Episodic Residual codes; unclassified (1 source) Gestation period, 8 weeks; Translations: [8 weeks gestation of ] Episodic Residual codes; unclassified (2 sources) Gestation period, 12 weeks; Translations: [12 weeks gestation of ] Episodic Residual codes; unclassified (1 source) Gestation period, 17 weeks; Translations: [17 weeks gestation of ] 03-14-2023 Episodic Residual codes; unclassified (1 source) Gestation period, 19 weeks; Translations: [19 weeks gestation of ] 03-29-2023 Episodic Residual codes; unclassified (1 source) Gestation period, 18 weeks; Translations: [18 weeks gestation of ] 03-29-2023 Episodic Residual codes; unclassified (2 sources) Gestation period, 23 weeks; Translations: [23 weeks gestation of ] 04-26-2023 Episodic Residual codes; unclassified (1 source) Gestation period, 24 weeks; Translations: [24 weeks gestation of ] 04-30-2023 Episodic Residual codes; unclassified (1 source) Gestation period, 27 weeks; Translations: [27 weeks gestation of ] 05-24-2023 Episodic Residual codes; unclassified (3 sources) Carrier of cystic fibrosis gene mutation; Translations: [Cystic fibrosis carrier] 05-24-2023 Episodic Residual codes; unclassified (1 source) Gestation period, 31 weeks; Translations: [31 weeks gestation of ] 06-21-2023 Episodic Residual codes; unclassified (1 source) Gestation period, 33 weeks; Translations: [33 weeks gestation of ] 07-04-2023 Episodic Residual codes; unclassified (1 source) Gestation period, 37 weeks; Translations: [37 weeks gestation of ] 08-01-2023 Episodic Past or Other Problems Problem Classification Problem Date Documented Da te Episodic/Chronic Diabetes or abnormal glucose tolerance complicating ; childbirth; or the puerperium (9 sources) Abnormal glucose level; Translations: [Abnormal glucose complicating ] Onset: 05-24-2023 05-24-2023 Episodic Hemorrhage during ; abruptio placenta; placenta previa (10 sources) Threatened miscarriage in first trimester; Translations: [Threatened ] Onset: 06-22-2021 06-22-2021 Episodic Other complications of (20 sources) High risk ; Translations: [Supervision of other high risk pregnancies, first trimester] Onset: 03-06-2023 Episodic Other complications of (20 sources) H/O: premature delivery; Translations: [Supervision of other high risk pregnancies, unspecified trimester] Onset: 01-04-2023 01-04-2023 Episodic Other complications of (20 sources) H/O: depression; Translations: [History of depression, currently ] Onset: 01-04-2023 01-04-2023 Episodic Other complications of (1 source) Supervision of high risk , unspecified, second trimester; Translations: [Supervision of high risk in second trimester] Onset: 04-27-2023 Episodic Other complications of (2 sources) Supervision of other high risk pregnancies, first trimester; Translations: [History of delivery, currently in first trimester] Onset: 02-06-2023 Episodic Other complications of (1 source) with inconclusive viability, not applicable or unspecified; Translations: [ of unknown anatomic location] Onset: 01-09-2023 Episodic Other female genital disorders (1 source) Personal history of pre-term labor; Translations: [History of delivery] Onset: 04-27-2023 Episodic Other and delivery including normal (4 sources) with uncertain dates; Translations: [Encounter for supervision of normal , unspecified, first trimester] Onset: 01-09-2023 Episodic Other screening for suspected conditions (not mental disorders or infectious disease) (10 sources) Cancer cervix screening status; Translations: [Encounter for screening for malignant neoplasm of cervix] Onset: 01-09-2023 Episodic Residual codes; unclassified (20 sources) Past history of procedure; Translations: [Personal history of other medical treatment] Onset: 01-04-2023 01-04-2023 Episodic Residual codes; unclassified (1 source) Cystic fibrosis carrier; Translations: [Cystic fibrosis carrier] Onset: 06-08-2023 Episodic Residual codes; unclassified (1 source) 23 weeks gestation of ; Translations: [23 weeks gestation of ] Onset: 04-27-2023 Episodic Residual codes; unclassified (1 source) 16 weeks gestation of ; Translations: [16 weeks gestation of ] Onset: 03-14-2023 Episodic Residual codes; unclassified (1 source) 12 weeks gestation of ; Translations: [12 weeks gestation of ] Onset: 02-06-2023 Episodic Residual codes; unclassified (1 source) 8 weeks gestation of ; Translations: [8 weeks gestation of ] Onset: 01-09-2023 Episodic Screening and history of mental health and substance abuse codes (20 sources) Stopped smoking; Translations: [Personal history of nicotine dependence] Onset: 01-04-2023 01-04-2023 Episodic Results Test Name Value Interpretation Reference Range Facil ity Vital Signs Date Time Vital Sign Value Performing Clinician Swapna lagunas 08-01-2023 10:28-0500 Body weight 82.74 kg Leena Browne APRN.CNP Work Phone: [facility] 08-01-2023 10:28-0500 Diastolic blood pressure 62 mm[Hg] Leena Browne APRN.BAIT PAINTER Work Phone: [facility] 08-01-2023 10:28-0500 Systolic blood pressure 102 mm[Hg] Leena Browne APRN.CNP Work Phone: [facility] 07-04-2023 11:02-0500 Body weight 81.74 kg Gunjan Blackwood MD Work Phone: [facility] 07-04-2023 11:02-0500 Diastolic blood pressure 60 mm[Hg] uGnjan Blackwood MD Work Phone: [facility] 07-04-2023 11:02-0500 Systolic blood pressure 100 mm[Hg] Gunjan Blackwood MD Work Phone: [facility] 06-21-2023 11:05-0500 Body weight 80.74 kg Diana Gramajoantolin ASSISTANT PRESSMAN.CNM Work Phone: [facility] 06-21-2023 11:05-0500 Diastolic blood pressure 62 mm[Hg] Diana Plotts ASSISTANT PRESSMAN.CNM Work Phone: [facility] 06-21-2023 11:05-0500 Systolic blood pressure 114 mm[Hg] Diana Plotts ASSISTANT PRESSMAN.CNM Work Phone: [facility] 05-24-2023 09:31-0400 Body weight 79.56 kg Quang De La Garza MD Work Phone: [facility] 05-24-2023 09:31-0400 Diastolic blood pressure 60 mm[Hg] Quang De La Garza MD Work Phone: [facility] 05-24-2023 09:31-0400 Systolic blood pressure 100 mm[Hg] Quang De La Garza MD Work Phone: [facility] 04-26-2023 10:09-0400 Body weight 77.38 kg Diana Plotantolin ASSISTANT PRESSMAN.CNM Work Phone: [facility] 04-26-2023 10:09-0400 Diastolic blood pressure 60 mm[Hg] Diana Plotantolin ASSISTANT PRESSMAN.CNM Work Phone: [facility] 04-26-2023 10:09-0400 Systolic blood pressure 104 mm[Hg] Diana Plotantolin ASSISTANT PRESSMAN.CNM Work Phone: [facility] 04-23-2023 17:44-0400 Body temperature 97.5 [degF] Angel Rapp ASSISTANT PRESSMAN.BAIT PAINTER Work Phone: [facility] 04-23-2023 17:44-0400 Body weight 76.93 kg Angel Rapp ASSISTANT PRESSMAN.BAIT PAINTER Work Phone: [facility] 04-23-2023 17:44-0400 Diastolic blood pressure 66 mm[Hg] Angel Pendlebury ASSISTANT PRESSMAN.BAIT PAINTER Work Phone: [facility] 04-23-2023 17:44-0400 Heart rate 66 /min Angel Rapp ASSISTANT PRESSMAN.BAIT PAINTER Work Phone: [facility] 04-23-2023 17:44-0400 Respiratory rate 18 /min [facility] PRESSMAN.BAIT PAINTER Work Phone: [facility] 04-23-2023 17:44-0400 SaO2% (BldA) [Mass fraction] 99 % [facility] ASSISTANT PRESSMAN.BAIT PAINTER Work Phone: [facility] 04-23-2023 17:44-0400 Systolic blood pressure 104 mm[Hg] Angel Rapp ASSISTANT PRESSMAN.BAIT PAINTER Work Phone: [facility] 03-29-2023 10:05-0400 Body weight 74.39 kg Diana Kauffman ASSISTANT PRESSMAN.CNM Work Phone: [facility] 03-29-2023 10:05-0400 Diastolic blood pressure 66 mm[Hg] Diana Plotts ASSISTANT PRESSMAN.CNM Work Phone: [facility] 03-29-2023 10:05-0400 Systolic blood pressure 108 mm[Hg] Diana Plotts ASSISTANT PRESSMAN.CNM Work Phone: [facility] 02-06-2023 10:17-0400 Body weight 72.58 kg Angélica Lima MD Work Phone: [facility] 02-06-2023 10:17-0400 Diastolic blood pressure 62 mm[Hg] Angélica Lima MD Work Phone: [facility] 02-06-2023 10:17-0400 Systolic blood pressure 92 mm[Hg] Angélica Lima MD Work Phone: [facility] 02-06-2023 09:43-0400 Body height 154.9 cm Nicolás Willis MD Work Phone: [facility] 02-06-2023 09:43-0400 Body weight 72.58 kg Nicolás Willis MD Work Phone: [facility] 01-09-2023 13:12-0400 Body height 154.9 cm Gunjan Blackwood MD Work Phone: [facility] 01-09-2023 13:12-0400 Body weight 72.58 kg Gunjan Blackwood MD Work Phone: [facility] 01-09-2023 13:12-0400 Diastolic blood pressure 66 mm[Hg] Gunjan Blackwood MD Work Phone: [facility] 01-09-2023 13:12-0400 Systolic blood pressure 108 mm[Hg] Gunjan Blackwood MD Work Phone: [facility] 09-30-2022 11:52-0500 Body temperature 98.1 [degF] Donny Madden ASSISTANT PRESSMAN.BAIT PAINTER Work Phone: [facility] 09-30-2022 11:52-0500 Body weight 75.3 kg Donny Madden ASSISTANT PRESSMAN.BAIT PAINTER Work Phone: [facility] 09-30-2022 11:52-0500 Diastolic blood pressure 76 mm[Hg] Donny Madden ASSISTANT PRESSMAN.BAIT PAINTER Work Phone: [facility] 09-30-2022 11:52-0500 Heart rate 75 /min Donny Madden ASSISTANT PRESSMAN.BAIT PAINTER Work Phone: [facility] 09-30-2022 11:52-0500 Respiratory rate 16 /min Donny Madden ASSISTANT PRESSMAN.BAIT PAINTER Work Phone: [facility] 09-30-2022 11:52-0500 SaO2% (BldA) [Mass fraction] 98 % Donny Madden ASSISTANT PRESSMAN.BAIT PAINTER Work Phone: [facility] 09-30-2022 11:52-0500 Systolic blood pressure 112 mm[Hg] Donny Madden ASSISTANT PRESSMAN.BAIT PAINTER Work Phone: [facility] 08-02-2022 18:09-0500 Body temperature 100.2 [degF] Pratibha Amaro ASSISTANT PRESSMAN.BAIT PAINTER Work Phone: [facility] 08-02-2022 18:09-0500 Body weight 76.02 kg Pratibha Praisler-Johnathon ASSISTANT PRESSMAN.BAIT PAINTER Work Phone: [facility] 08-02-2022 18:09-0500 Diastolic blood pressure 80 mm[Hg] Pratibha Praisler-Wood ASSISTANT PRESSMAN.BAIT PAINTER Work Phone: [facility] 08-02-2022 18:09-0500 Heart rate 95 /min Pratibha Praisler-Wood ASSISTANT PRESSMAN.BAIT PAINTER Work Phone: [facility] 08-02-2022 18:09-0500 Respiratory rate 18 /min Pratibha Praisler-Wood ASSISTANT PRESSMAN.BAIT PAINTER Work Phone: [facility] 08-02-2022 18:09-0500 SaO2% (BldA) [Mass fraction] 98 % Pratibha Ospinaisler-Wood ASSISTANT PRESSMAN.BAIT PAINTER Work Phone: [facility] 08-02-2022 18:09-0500 Systolic blood pressure 122 mm[Hg] Pratibha Praisler-Wood ASSISTANT PRESSMAN.BAIT PAINTER Work Phone: [facility] Encounters Encounter Date Encounter Type Care Provider Facility Start: 09-06-2023 End: 09-06-2023 ambulatory [facility] Facility:[facility] Start: 08-01-2023 Telephone encounter Karen Hudson MD Work Phone: OB/Gynecology Procedures Date Procedure Procedure Detail Performing Clinician Start: 08-01-2023 URINE OB DIP B/O Leena Browne ASSISTANT PRESSMAN.BAIT PAINTER Work Phone: Start: 07-04-2023 RSV VACCINE, BIVALEN T (ABRYSVO) Gunjan Blackwood MD Work Phone: Start: 07-04-2023 URINE OB DIP B/O Danya Blackwood MD Work Phone: Start: 06-21-2023 URINE OB DIP B/O Kole Kauffman ASSISTANT PRESSMAN.CNM Work Phone: Start: 05-24-2023 Antibody screen TULIO KAUFFMAN Plan of Treatment Date Care Activity Detail Author Start: 05-24-2033 Urine microalbumin profile [facility] Start: 01-09-2026 PAP TESTING PAP TESTING [facility] Start: 01-09-2026 Screening for malignant neoplasm of cervix Pap Testing [facility] Start: 01-10-2024 CHLAMYDIA SCREENING (18-24) CHLAMYDIA SCREENING (18-24) [facility] Start: 01-10-2024 GC (GONORRHEA) SCREENING (18-24) GC (GONORRHEA) SCREENING (18-24) [facility] Start: 05-24-2023 End: 07-24-2023 GEST GLUC GARTH, 3-HR, 100 GM, FASTING GEST GLUC GARTH, 3-HR, 100 GM, FASTING Lab Routine Abnormal glucose complicating Expected: 05/24/2023, Expires: 07/24/2023 [facility] Work Phone: Immunizations Immunization Date Immunization Notes Care Provider [facility] 07-04-2023 respiratory syncytia l virus (RSV) vaccine, bivalent (ABRYSVO) Gunjan Blackwood MD Work Phone: [facility] 05-24-2023 tetanus toxoid, redu crystal diphtheria toxoid, and acellular pertussis vaccine, adsorbed Quang De La Garza MD Work Phone: [facility] 05-20-2004 measles, mumps and rubella virus vaccine Gunjan Blackwood MD Work Phone: [facility] 01-18-2004 diphtheria, tetanus toxoids and acellular pertussis vaccine Gunjan Blackwood MD Work Phone: [facility] 01-18-2004 measles, mumps and rubella virus vaccine Gunjan Blackwood MD Work Phone: [facility] 01-18-2004 poliovirus vaccine, inactivated Gunjan Blackwood MD Work Phone: [facility] 03-10-2003 diphtheria, tetanus toxoids and acellular pertussis vaccine, unspecified formulation Gunjan Blackwood MD Work Phone: [facility] 03-10-2003 hepatitis B vaccine, pediatric or pediatric/adolescent dosage Gunjan Blackwood MD Work Phone: [facility] 03-10-2003 poliovirus vaccine, unspecified formulation Gunjan Blackwood MD Work Phone: [facility] 06-24-1999 diphtheria, tetanus toxoids and acellular pertussis vaccine, unspecified formulation Gunjan Blackwood MD Work Phone: [facility] 06-24-1999 haemophilus influenz ae type b vaccine, conjugate unspecified formulation Gunjan Blackwood MD Work Phone: [facility] 06-24-1999 poliovirus vaccine, unspecified formulation Gunjan Blackwood MD Work Phone: [facility] 02-16-1999 diphtheria, tetanus toxoids and acellular pertussis vaccine, unspecified formulation Gunjan Blackwood MD Work Phone: [facility] 02-16-1999 haemophilus influenz ae type b vaccine, conjugate unspecified formulation Gunjan Blackwood MD Work Phone: [facility] 02-16-1999 hepatitis B vaccine, pediatric or pediatric/adolescent dosage Gunjan Blackwood MD Work Phone: [facility] 02-16-1999 poliovirus vaccine, unspecified formulation Gunjan Blackwood MD Work Phone: [facility] 1998 hepatitis B vaccine, pediatric or pediatric/adolescent dosage Gunjan Blackwood MD Work Phone: [facility] Payers Date Payer Category Payer Medicaid [id number] 2022 Medicaid [id number] 2019 Medicaid [id number] Social History Date Type Detail Facility Start: [facility]02[facility]22 [facility] Start: 08-02-2022 End: 01-04-2023 Tobacco use and exposure Smokeless tobacco non-user [facility] Start: 08-02-2022 End: 08-01-2023 Alcohol intake Ex-drinker (finding) [facility] Start: 08-02-2022 Tobacco [facility] Start: 2000 Sex Assigned At Not on file [facility] Start: 01-04-2023 Tobacco smoking stat us NHIS Ex-smoker [facility] Work Phone: End: 12-13-2022 History of tobacco use Current smoker [facility] Work Phone: End: 12-13-2022 History of tobacco use Cigarette Smoker [facility] Work Phone: Start: 01-04-2023 Education 13 [facility] Start: 11-27-2022 [facility] Start: 07-21-2020 End: 02-06-2023 History of Social function [facility] Start: 07-21-2020 End: 02-06-2023 Tobacco use panel [facility] National Score (1-10 0), lower number is lower risk Not on file [facility] Clinical Notes 06-22-2021 to 09-06-2023 Telephone Encounter - María Baker LPN - 08/01/2023 3:31 PM ESTTelephone Encounter - Marguerite Saucedo RN - 08/01/2023 3:22 PM ESTPatient InstructionsPatient InstructionsPatient Instructions Note Date & Type Note Facility 09-06-2023 Note HNO ID: [id number] Author: ANGÉLICA LIMA MD Service: ? Author Type: Physician Type: Progress Notes Filed: 09/06/2023 10:53 Note Text: VISIT Collin Hwang is a 22 year old year old here for visit. Delivery Summary: ROS/ Recovery: Feeding: Breast feeding problems: None Menses since delivery: has not resumed Menstrual pattern prior to : Regular periods [place] since delivery: Not resumed Depression: denies symptoms of depression. OB Depression and Anxiety Screening- This Encounter (since 09/05/2023) None Emotional support: Yes Bowel symptoms: Negative for abdominal discomfort, blood in stools or black stools and change in bowel habits Abdomen: N/A Bladder symptoms: No dysuria, gross hematuria, urinary frequency, urinary urgency, or incontinence Other issues: None Last Pap: 2022 ASCUS HPV: negative PAST MEDICAL HISTORY Diagnosis Date Herpes simplex virus (HSV) infection Miscarriage depression No past surgical history on file. FAMILY HISTORY Problem Relation Age of Onset No Known Problems Mother Asthma Father Asthma Sister No Known Problems Sister No Known Problems Maternal Grandmother other (stomach ulcer) Maternal Grandfather Asthma Paternal Grandmother other (lung) Paternal Grandmother No Known Problems Paternal Grandfather Social History Tobacco Use Smoking status: Former Years: 2 Types: Cigarettes Quit date: 12/13/2022 Years since quittin.7 Smokeless tobacco: Never Vaping Use Vaping Use: current everyday user Quit date: 12/13/2022 Substance Use Topics Alcohol use: Not Currently Drug use: Never PHYSICAL EXAMINATION: LMP 11/13/2022 GENERAL: pleasant, female in no apparent distress HEENT: Normocephalic, atraumatic, mucus membranes moist, and no lesions NECK: Supple, full range of motion, no adenopathy, and thyroid normal DERMATOLOGY: Normal, without lesions, non-icteric, and non-hirsute BREAST: soft, non-tender, symmetric, no dominant mass, normal nipple-areolar complex, no lymphadenopathy, and no nipple discharge CHEST: Normal inspiratory effort ABDOMEN: soft, non-tender, and no masses. INCISION: N/A PELVIC: external genitalia normal, normal Bartholin's glands, urethra, Impact's glands, no vulvar lesions, no cervical lesions, good vaginal support, physiologic discharge present, normal appearing perineal body and perianal region BIMANUAL: uterus normal size, shape and consistency, no adnexal masses, and non-tender NEURO: alert and oriented x3,exam grossly non-focal EXTREMITIES: normal ASSESSMENT AND PLAN: 22 year old status post Vacuum with normal course. Contraception plan: IUD - Mirena Follow up: RTC for annual exams and PRN, RTC for insertion of IUD Angélica Lima MD [facility] 08-07-2023 Note HNO ID: [id number] Author: Toshia Cha RN Service: ? Author Type: Registered Nurse Type: Progress Notes Filed: 08/07/2023 9:44 AM Note Text: Patient delivered via vacuum assisted vaginal delivery 08/04/[address] Gunjan Blackwood MD. [facility] 08-01-2023 Miscellaneous Notes Formattin g of this note might be different from the original. Patient notified Attempted to notify patient. No answer and mailbox has not been set up yet. Marguerite Saucedo RN Normal after membrane sweep. Patient called back with an update. Her bleeding has slowed down. It's now like a light period. Still bright red in color. Minimal cramping still. Marguerite Saucedo RN 37w2d Saw today for OB visit and had cervical exam. Calling concerned because she started bleeding. Just noticed when wiping. Having minimal cramping since exam, no pain or leaking fluid. She did notice some mucous plug with the bleeding. Advised it can be normal to have bleeding after an exam. Concerned because she feels it's more then spotting. She just put on a pad now and is going to call back with an update. Good FM since office visit still. Danni Wan RN documented in this encounter [facility] 08-01-2023 Miscellaneous Notes Formattin g of this note might be different from the original. S: Collin is a 22 year old female who presents at 37w2d for a routine visit. Feeling movement. Denies headache, visual changes, chest pain, shortness of breath, vaginal bleeding, leakage of fluid, or dysuria. Occasional Pancho Lucero. Feeling well, no complaints. O: See flow sheet Gen: No apparent distress Abd: Gravid, nontender, S>D ASSESSMENT/PLAN: 1. Supervision of other high risk , antepartum - ICD9: V23.89, ICD10: O09.899 (primary diagnosis) - URINE OB DIP B/O 2. 37 weeks gestation of - ICD9: V22.2, ICD10: Z3A.37 - Patient requesting for cervix exam, 3 cm 80% -2 - Labor precautions reviewed 3. Positive GBS test - ICD9: 041.02, ICD10: B95.1 - Discussed results with patient - Plan for Penicillin during labor RTO in 1 week or sooner as needed. Discussed signs of when to call. Leena Browne APRN.ROGERS documented in this encounter [facility] 08-01-2023 Instructions s Sophia Ho - 08/01/2023 10:23 AM EST SEQUENTIAL SCREENINGS [facility] offers sequential screenings for women who are interested in screenings for chromosomal abnormalities and certain defects during a . The sequential screen combines ultrasound and blood tests to determine the risk of chromosomal abnormalities, including Down's Syndrome (Trisomy 21) and Trisomy 18, as well as open neural tube defects including spina bifida. Ultrasound examination is performed between 11 weeks and 13 weeks gestational age. Blood tests are drawn after the ultrasound and again later in the between 15 and 21 weeks gestational age. Please let your physician know if you are interested in this testing. It will require an appointment with our oil and gas exploration technician. This is not an ultrasound performed by a physician in our office during a routine visit. SIGNS AND SYMPTOMS OF LABOR 1. Contractions every 10 minutes or more often 2. Clear, pink, or brownish fluid (water) leaking from vagina 3. Feeling that baby is pushing down, pressure 4. Low, dull backache 5. Cramps that feel like a period 6. Cramps with or without diarrhea If you notice any of the above symptoms, contact our office at [phone] and ask to speak with a nurse. After hours, you can call doctors registry at [phone] OR call [facility] at [phone] and ask to have the doctor combination building inspector paged. If you consider this an emergency, dial or go to your nearest emergency department. NEED HELP? Are you dealing with a violent or abusive relationship? Are you a victim of rape or sexual assult? Call [facility] ([place]) 24 hour Crisis Hotline: 824.324.5376 or 604-565-6048. MANUAL Your Guide to a Healthy manual is now on-line. Visit [email or web address] [email or web address] to download your free copy documented in this encounter [facility] 07-04-2023 Miscellaneous Notes Formattin g of this note might be different from the original. .RR- VB No. LOF No. CTXS irreg . Movement: present. Other c/o: No. Medication list reviewed. Physical Exam See Flow Sheet Abd: soft, nontender, gravid Ext: edema: Trace A/P 33w2d Estimated Date of Delivery: 08/20/23 d/w her RSV options, elects for vaccine today f/u in 2 weeks or prn cont. vaginal progesterone for short cervix and h/o PTD. Gunjan Blackwood M.D. documented in this encounter [facility] 07-04-2023 Instructions Natalie Orona MA - 07/04/2023 10:58 AM EST SEQUENTIAL SCREENINGS [facility] offers sequential screenings for women who are interested in screenings for chromosomal abnormalities and certain defects during a . The sequential screen combines ultrasound and blood tests to determine the risk of chromosomal abnormalities, including Down's Syndrome (Trisomy 21) and Trisomy 18, as well as open neural tube defects including spina bifida. Ultrasound examination is performed between 11 weeks and 13 weeks gestational age. Blood tests are drawn after the ultrasound and again later in the between 15 and 21 weeks gestational age. Please let your physician know if you are interested in this testing. It will require an appointment with our oil and gas exploration technician. This is not an ultrasound performed by a physician in our office during a routine visit. SIGNS AND SYMPTOMS OF LABOR 1. Contractions every 10 minutes or more often 2. Clear, pink, or brownish fluid (water) leaking from vagina 3. Feeling that baby is pushing down, pressure 4. Low, dull backache 5. Cramps that feel like a period 6. Cramps with or without diarrhea If you notice any of the above symptoms, contact our office at [phone] and ask to speak with a nurse. After hours, you can call doctors registry at [phone] OR call [facility] at [phone] and ask to have the doctor combination building inspector paged. If you consider this an emergency, dial 9--3 or go to your nearest emergency department. NEED HELP? Are you dealing with a violent or abusive relationship? Are you a victim of rape or sexual assult? Call [facility] ([place]) 24 hour Crisis Hotline: 925.290.5960 or 858-904-3793. MANUAL Your Guide to a Healthy manual is now on-line. Visit [email or web address] [email or web address] to download your free copy documented in this encounter [facility] 06-21-2023 Miscellaneous Notes Formattin g of this note might be different from the original. S: Collin Hwang is a 22 year old female who presents at 31.3 weeks gestation for a routine visit. Positive movement. Denies any cramps or contractions. Denies headache, visual changes, chest pain, shortness of breath, vaginal bleeding, leakage of fluid, or dysuria. Feeling well, no complaints. Reports still not smoking. O: See flow sheet Gen: No apparent distress Abd: Gravid, non tender S=D ASSESSMENT/PLAN: 1. Supervision of high risk in third trimester - ICD9: V23.9, ICD10: O09.93 (primary diagnosis) - URINE OB DIP B/O 2. 31 weeks gestation of - ICD9: V22.2, ICD10: Z3A.31 3. Cystic Fibrosis carrier - Had genetics consult - sending in kit this week P: 1) PTL precautions reviewed and when to call 2) RTO 2 weeks or sooner if needed Diana Kauffman APRN.CNM documented in this encounter [facility] 06-21-2023 Mauri Allen Cma 06/21/2023 11:02 AM EST SEQUENTIAL SCREENINGS [facility] offers sequential screenings for women who are interested in screenings for chromosomal abnormalities and certain defects during a . The sequential screen combines ultrasound and blood tests to determine the risk of chromosomal abnormalities, including Down's Syndrome (Trisomy 21) and Trisomy 18, as well as open neural tube defects including spina bifida. Ultrasound examination is performed between 11 weeks and 13 weeks gestational age. Blood tests are drawn after the ultrasound and again later in the between 15 and 21 weeks gestational age. Please let your physician know if you are interested in this testing. It will require an appointment with our oil and gas exploration technician. This is not an ultrasound performed by a physician in our office during a routine visit. SIGNS AND SYMPTOMS OF LABOR 1. Contractions every 10 minutes or more often 2. Clear, pink, or brownish fluid (water) leaking from vagina 3. Feeling that baby is pushing down, pressure 4. Low, dull backache 5. Cramps that feel like a period 6. Cramps with or without diarrhea If you notice any of the above symptoms, contact our office at [phone] and ask to speak with a nurse. After hours, you can call doctors registry at [phone] OR call [facility] at [phone] and ask to have the doctor combination building inspector paged. If you consider this an emergency, dial 4-4-9 or go to your nearest emergency department. NEED HELP? Are you dealing with a violent or abusive relationship? Are you a victim of rape or sexual assult? Call [facility] ([place]) 24 hour Crisis Hotline: 163.122.5161 or 968-248-1214. MANUAL Your Guide to a Healthy manual is now on-line. Visit [email or web address] [email or web address] to download your free copy documented in this encounter [facility] 06-08-2023 Note HNO ID: [id number] Author: Willy Juarez LGC Service: ? Author Type: Genetic Counselor Type: Progress Notes Filed: 07/03/2023 9:48 AM Note Text: REPRODUCTIVE GENETIC COUNSELING INITIAL VISIT Collin Hwang : 2000 Above identifiers confirmed by Willy Juarez MS, [facility] Consultation requested by: Quang De La Garza MD Date of clinic visit: June 08, 2023 Department Store Door Greeter offered/present: No - Greek per EMR Collin Hwang is a 22 year old female referred by Dr. Quang De La Garza for genetic counseling to discuss her cystic fibrosis carrier status. Ms. Hwang is seen via a virtual Distance Health visit today via [employer] [facility] Zoom platform per patient choice. The visit is conducted synchronously in real-time. The patient and her , Julien Soria, are in attendance. I have communicated my name and active licensure. The patient's identity and physical location were verified at the time of this visit. Either the patient or their legal public relations representative has been informed of the risks and benefits of -- and alternatives to -- treatment through a remote evaluation and consents to proceed with the evaluation remotely. PRESENTING PROBLEM: Collin Hwang is a 22 year old at 29w4d who presents to discuss positive carrier screening for cystic fibrosis. Of note, patient has had carrier screening in prior with a different partner that was positive for MCAD (results unavailable). She is doing well today. Denies any issues with current . REPRODUCTIVE HISTORY: Currently : Yes / k4d (by LMP) LMP: 11/13/2022 MARIANNA: 08/20/2023 Plans to deliver at [facility] history: 1. 2017, , 31 weeks, IOL for infection 2. 2020, SAB, early first trimester 3. Current Infertility as a couple: No. Infertility with other partners: Unknown. Parental Screens: Maternal Myriad Fundamental (14 condition) Panel: Identified as a carrier of Cystic Fibrosis (CFTR c.[id number] aka [id number]) Hemoglobinopathies: No; Patient's MCV: 96.2 fL Mormonism Diseases: No Other: No Chromosomal analysis: Patient: No Partner: No Products of conception: No exposures: - vitamins or other folate supplementation: Yes - Prescription medicines: Yes - vaginal progesterone - OTC medicines, herbal medicines, other supplements: No - Tobacco, alcohol, or illicit drugs: No - Maternal infections or fevers: no - Other known/suspected human teratogens: No Aneuploidy screening: yes (Date: 02/06/23 and 7/25/23, Gestational Age: 12wk1d and 16wk1d) - Sequential screening: - Screen negative for Trisomy 21, Trisomy 18, Trisomy 13, and neural tube defects - Reported sex: Male by ultrasound Ultrasounds: - Dating scan at 8 weeks gestation by LMP (performed by Dr. Gunjan Noyola): 8wk1d weeks by scan. - NT scan: performed 12wk1d by Dr. Willis; 0.9 mm NT - anatomy performed by 19wk3d normal; normal amniotic fluid volume. complications: - Maternal diabetes, hypertension, seizures, other illness: No - Vaginal bleeding, labor, other complications: No - Decreased movement: No SIGNIFICANT PAST MEDICAL/SURGICAL HISTORIES: Collin: History of Julien: (age 22) Epilepsy dx 2020, no prior genetic testing FAMILY HISTORY: A 3-generation pedigree was obtained for the patient and her partner and will be scanned into patient's EMR. Of note: - Genetic and/or Inherited Disease: No - Common Disorders: No - Defects: No - Seizures: Yes- Mr. Soria reported personal history as well his nephew from paternal half-brother - Recurrent Loss/Infertility: Ms. Hwang reported her maternal grandmother has recurrent loss of unknown etiology. - MR/DD/Autism: Mr. Soria reported nephew from paternal half-brother with autism and niece from paternal half-brother who is currently undergoing testing for autism. - : No - Other: No - Patient's ethnicity: [place] Zealander/Shreya - Partner's ethnicity: [place] - Patient and/or partner did not report -Swedish, , Mediterranean, Ashkenazi Mormonism and/or [place]an-Equatorial [place]an/Cajun ancestries unless noted above. - Patient and partner are not consanguineous The remainder of the known family history is negative for infertility, recurrent loss, stillbirth, unexplained , defects, malformation syndromes, chromosomal abnormalities, metabolic disorders, developmental delay, mental retardation, known or suspected genetic diseases, and consanguinity except as noted above and on the formal pedigree. 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 The patient and her report a negative family history of CF disease. We discussed the clinical features of CF and it (more content not included)... [facility] 06-08-2023 History of Presen t illness Narrative REPRODUCTIVE GENETIC COUNSELING INITIAL VISIT Collin Hwang : 2000 Above identifiers confirmed by Willy Juarez MS, [facility] Consultation requested by: Quang De La Garza MD Date of clinic visit: June 08, 2023 Department Store Door Greeter offered/present: No - Greek per EMR Collin Hwang is a 22 year old female referred by Dr. Quang De La Garza for genetic counseling to discuss her cystic fibrosis carrier status. Ms. Hwang is seen via a virtual Distance Health visit today via [employer] platform per patient choice. The visit is conducted synchronously in real-time. The patient and her , Julien Soria, are in attendance. I have communicated my name and active licensure. The patient's identity and physical location were verified at the time of this visit. Either the patient or their legal public relations representative has been informed of the risks and benefits of -- and alternatives to -- treatment through a remote evaluation and consents to proceed with the evaluation remotely. PRESENTING PROBLEM: Collin Hwang is a 22 year old at 29w4d who presents to discuss positive carrier screening for cystic fibrosis. Of note, patient has had carrier screening in prior with a different partner that was positive for MCAD (results unavailable). She is doing well today. Denies any issues with current . REPRODUCTIVE HISTORY: Currently : Yes / 29wk4d (by LMP) LMP: 11/13/2022 MARIANNA: 08/20/2023 Plans to deliver at [facility] history: 1. 2017, , 31 weeks, IOL for infection 2. 2020, SAB, early first trimester 3. Current Infertility as a couple: No. Infertility with other partners: Unknown. Parental Screens: Maternal Myriad Fundamental (14 condition) Panel: Identified as a carrier of Cystic Fibrosis (CFTR c.1521_1523delCTT aka V780dam) Hemoglobinopathies: No; Patient's MCV: 96.2 fL Mormonism Diseases: No Other: No Chromosomal analysis: Patient: No Partner: No Products of conception: No exposures: - vitamins or other folate supplementation: Yes - Prescription medicines: Yes - vaginal progesterone - OTC medicines, herbal medicines, other supplements: No - Tobacco, alcohol, or illicit drugs: No - Maternal infections or fevers: no - Other known/suspected human teratogens: No Aneuploidy screening: yes (Date: 02/06/23 and 03/06/23, Gestational Age: 12wk1d and 16wk1d) - Sequential screening: - Screen negative for Trisomy 21, Trisomy 18, Trisomy 13, and neural tube defects - Reported sex: Male by ultrasound Ultrasounds: - Dating scan at 8 weeks gestation by LMP (performed by Dr. Gunjan Noyola): 8wk1d weeks by scan. - NT scan: performed 12wk1d by Dr. Willis; 0.9 mm NT - anatomy performed by 19wk3d normal; normal amniotic fluid volume. complications: - Maternal diabetes, hypertension, seizures, other illness: No - Vaginal bleeding, labor, other complications: No - Decreased movement: No SIGNIFICANT PAST MEDICAL/SURGICAL HISTORIES: Collin: History of Julien: (age 22) Epilepsy dx 2020, no prior genetic testing FAMILY HISTORY: A 3-generation pedigree was obtained for the patient and her partner and will be scanned into patient's EMR. Of note: - Genetic and/or Inherited Disease: No - Common Disorders: No - Defects: No - Seizures: Yes- Mr. Soria reported personal history as well his nephew from paternal half-brother - Recurrent Loss/Infertility: Ms. Hwang reported her maternal grandmother has recurrent loss of unknown etiology. - MR/DD/Autism: Mr. Soria reported nephew from paternal half-brother with autism and niece from paternal half-brother who is currently undergoing testing for autism. - : No - Other: No - Patient's ethnicity: New Zealander/Shreya - Partner's ethnicity: [place] - Patient and/or partner did not report -Swedish, , Mediterranean, Ashkenazi Mormonism and/or Bel[place]an-Equatorial [place]an/Cajun ancestries unless noted above. - Patient and partner are not consanguineous The remainder of the known family history is negative for infertility, recurrent loss, stillbirth, unexplained infant , defects, malformation syndromes, chromosomal abnormalities, metabolic disorders, developmental delay, mental retardation, known or suspected genetic diseases, and consanguinity except as noted above and on the formal pedigree. 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 The patient and her report a negative family history of CF disease. We discussed the clinical features of CF and its autosomal recessive inheritance. We also discussed the / carrier rate for CF for individuals of ancestry. We reviewed the availability of testing for her partner to determine his CF carrier status. If he is determined to also be a CF carrier, there would be a 1/4 (25%) chance for a to have CF. We reviewed the availability of partner testing: CFTR sequencing or the option of expanded carrier screening. We also reviewed [place] screen. We also briefly reviewed options for diagnostic testing should it be desired. We also discussed cost and insurance coverage. 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 These results are not available at this time. We discussed with the patient regarding expanding her carrier screen to the 176 condition panel to confirm prior findings. The couple opted for concurrent expanded carrier screening via [employer]. [employer] will be contacted to upgrade Ms. Hwang's previously completed panel. Based on family history: Discussed Mr. Soria's family history of autism and that 30-40% of cases have an underlying genetic cause such as Fragile X syndrome. Informed him of the availability of a general genetics evaluation and testing as indicated for his maternal half-nephew and his maternal half-niece if she is diagnosed. Reviewed that without a known underlying genetic cause, accurate recurrence risks cannot be provided. They indicated understanding. Reviewed Mr. Soria's personal and family history of epilepsy and that up to 40% of cases have an underlying genetic cause. Informed him of the availability of a general genetics evaluation and testing as indicated. Reviewed that without a known underlying genetic cause, accurate recurrence risks cannot be provided. Quoted the 4% empiric recurrence risk for children given Mr. Soria's personal history and recommended informing pediatricians of this history. They indicated understanding. Finally, discussed Ms. Hwang's family history of recurrent loss (RPL). Reviewed that there are multiple genetic and non-genetic etiologies for RPL and that 50-80% of early losses are due to a genetic factor such as aneuploidy. Shared that 2-5% of couples with RPL have a chromosomal rearrangement which may increase the risk for aneuploidy. Discussed that a chromosome analysis based on this family history is not clinically indicated for Ms. Hwang at this time. She indicated understanding. SUGGESTIONS/PLAN: Ms. Hwang opted to upgrade to the expanded carrier screening panel (176 conditions through [employer]) as well as expanded carrier screening (176 condition panel) for her partner, Julien Soria ( ). Her partner desires saliva testing. The orders have been placed and she will be notified of the results. Recommend informing pediatricians of Mr. Soria's personal history of epilepsy. He is aware of the availability of a medical genetics evaluation and testing as indicated. Follow-up as indicated by the above results. Encouraged them to contact me with any questions/concerns/etc. Thank you for referring Ms. Hwang. Please do not hesitate to call if you have questions/concerns. The patient was seen for a total of 45 minutes, greater than 50% of which was spent [id number] counseling. This plan is being carried out under the oversight of Dr. Desiree Cantrell. This note will also be sent to the referring provider via the electronic medical record. Seen and d/w Willy Juarez MS, [facility] Licensed, Certified Genetic Counselor Mathew Starks MD Maternal Medicine Fellow PGY-5 EPIC CC: Dr. Quang De La Garza Referring Physician Dr. Desiree Cantrell (thread winder automatic) TEACHING PHYSICIAN NOTE OF PERSONAL INVOLVEMENT IN CARE: I have overseen this patient's care and medical decision-making components. I have reviewed the fellow's documentation and verified the findings in the note as written. Any additions or changes are noted in italics. Signature: Willy Juarez CGC Date: June 11, 2023 Time: 10:29 pm documented in this encounter [facility] 05-24-2023 Miscellaneous Notes Formattin g of this note might be different from the original. See result note 3 hr GTT ordered documented in this encounter [facility] 05-24-2023 Note HNO ID: [id number] Author: Natalie Orona MA Service: ? Author Type: Director Of Neighborhood Service Center Type: Progress Notes Filed: 05/24/2023 10:09 AM Note Text: Patient identified by name and date of . Collin Hwang presents today for a vaccination of Tdap. Patient denies an allergy to latex: yes Patient denies a severe (life-threatening) allergy to a previous dose of Tdap, DTP, DTaP, DT or Td vaccine. Yes Patient denies history of epilepsy or neurological problems: Yes Patient is afebrile and denies being moderately or severely ill: Yes Patient denies history of Guillain-Babcock Syndrome (a severe paralytic illness): Yes Tdap Adacel injection was given without incident. See immunizations for details of immunizations administered today. VIS sheet provided: Yes Provider Quang De La Garza DO was present in office at time of injection. Natalie Orona MA [facility] 05-24-2023 Miscellaneous Notes Formattin g of this note might be different from the original. SW- Pt doing well. No ctx, pain, vb, lof. Good FM. 28 wk labs today. Tdap today. Rh positive. LARC signed. IUD 6 weeks . Partner still has not been tested for CF as pt is carrier. Referral to genetics placed. RTO 2 wks. Quang De La Garza DO documented in this encounter [facility] 05-24-2023 History of Presen t illness Narrative Patient identified by name and date of . Collin Hwang presents today for a vaccination of Tdap. Patient denies an allergy to latex: yes Patient denies a severe (life-threatening) allergy to a previous dose of Tdap, DTP, DTaP, DT or Td vaccine. Yes Patient denies history of epilepsy or neurological problems: Yes Patient is afebrile and denies being moderately or severely ill: Yes Patient denies history of Guillain-Babcock Syndrome (a severe paralytic illness): Yes Tdap Adacel injection was given without incident. See immunizations for details of immunizations administered today. VIS sheet provided: Yes Provider Quang De La Garza DO was present in office at time of injection. Natalie Orona MA documented in this encounter [facility] 05-24-2023 Instructions Natalie Orona MA - 05/24/2023 9:23 AM EDT SEQUENTIAL SCREENINGS [facility] [facility] offers [facility] for women who are interested in screenings for chromosomal abnormalities and certain defects during a . The sequential screen combines ultrasound and blood tests to determine the risk of chromosomal abnormalities, including Down's Syndrome (Trisomy 21) and Trisomy 18, as well as open neural tube defects including spina bifida. Ultrasound examination is performed between 11 weeks and 13 weeks gestational age. Blood tests are drawn after the ultrasound and again later in the between 15 and 21 weeks gestational age. Please let your physician know if you are interested in this testing. It will require an appointment with our oil and gas exploration technician. This is not an ultrasound performed by a physician in our office during a routine visit. SIGNS AND SYMPTOMS OF LABOR 1. Contractions every 10 minutes or more often 2. Clear, pink, or brownish fluid (water) leaking from vagina 3. Feeling that baby is pushing down, pressure 4. Low, dull backache 5. Cramps that feel like a period 6. Cramps with or without diarrhea If you notice any of the above symptoms, contact our office at [phone] and ask to speak with a nurse. After hours, you can call doctors registry at [phone] OR call [facility] at [phone] and ask to have the doctor combination building inspector paged. If you consider this an emergency, dial 9-1-1 or go to your nearest emergency department. NEED HELP? Are you dealing with a violent or abusive relationship? Are you a victim of rape or sexual assult? Call [facility] ([place]) 24 hour Crisis Hotline: 560.698.1548 or 521-603-7611. MANUAL Your Guide to a Healthy manual is now on-line. Visit [email or web address] to download your free copy documented in this encounter [facility] 04-30-2023 Miscellaneous Notes Formattin g of this note might be different from the original. Rx sent See pt's mychart message and further advise. Spoke with pharmacy and they are needing clarification on pended order below. Frida Washington LPN documented in this encounter [facility] 04-26-2023 Miscellaneous Notes Formattin g of this note might be different from the original. Patient scheduled tomorrow at 10:15 am Images from the original note were not included. Diana Kauffman APRN.CNM P [facility] Ob-Material Preparation Worker Pool PATIENT NEEDS FINAL CERVICAL LENGTH ULTRASOUND BY NEXT WEEK. Please call and notify patient and assist with scheduling. Diana Kauffman APRN.CNM documented in this encounter [facility] 04-26-2023 Miscellaneous Notes Formattin g of this note might be different from the original. Collin Hwang is a 22 year old female who presents at 23w3d Estimated Date of Delivery: 08/20/23 for a routine visit. Good movement. Denies headache, visual changes, chest pain, shortness of breath, vaginal bleeding, leakage of fluid, or dysuria. Feeling well, no complaints. Size equal to dates. 4 lbs TWG. PTL precautions reviewed. RTC in 1-2 weeks for final CL and 4 weeks for JANINA> Diana Kauffman APRN.CNM documented in this encounter [facility] 04-26-2023 Instructions Mauri Umana Cma - 04/26/2023 10:05 AM EDT SEQUENTIAL SCREENINGS [facility] offers sequential screenings for women who are interested in screenings for chromosomal abnormalities and certain defects during a . The sequential screen combines ultrasound and blood tests to determine the risk of chromosomal abnormalities, including Down's Syndrome (Trisomy 21) and Trisomy 18, as well as open neural tube defects including spina bifida. Ultrasound examination is performed between 11 weeks and 13 weeks gestational age. Blood tests are drawn after the ultrasound and again later in the between 15 and 21 weeks gestational age. Please let your physician know if you are interested in this testing. It will require an appointment with our oil and gas exploration technician. This is not an ultrasound performed by a physician in our office during a routine visit. SIGNS AND SYMPTOMS OF LABOR 1. Contractions every 10 minutes or more often 2. Clear, pink, or brownish fluid (water) leaking from vagina 3. Feeling that baby is pushing down, pressure 4. Low, dull backache 5. Cramps that feel like a period 6. Cramps with or without diarrhea If you notice any of the above symptoms, contact our office at [phone] and ask to speak with a nurse. After hours, you can call doctors registry at [phone] OR call [facility] at [phone] and ask to have the doctor combination building inspector paged. If you consider this an emergency, dial 6-1- or go to your nearest emergency department. NEED HELP? Are you dealing with a violent or abusive relationship? Are you a victim of rape or sexual assult? Call [facility] [place] ([facility] 24 hour Crisis Hotline: 730.350.1103 or 377-843-5270. MANUAL Your Guide to a Healthy manual is now on-line. Visit [email or web address] to download your free copy documented in this encounter [facility] 04-23-2023 Note HNO ID: [id number] Author: Angel Rapp APRN.BAIT PAINTER Service: ? Author Type: Nurse Practitioner Type: Progress Notes Filed: 04/23/2023 6:01 PM Note Text: Subjective HPI Nontoxic-appearing female presents urgent care chief complaint insect sting. Duration of symptoms 2 days. Associated symptoms itching and redness. Presents today to ensure she does not have a bacterial infection. Has used Benadryl this is helped some. Has not used any other OTC medications. Denies any significant pain. Denies any shortness of breath difficulty breathing difficulty handling secretions decreased range of motion of neck. Denies history of allergic reactions to insect stings in the past. Is currently 23 weeks . No vaginal discharge or abdominal pain. Good movement. Denies any fever body aches chills productive cough chest pain shortness of breath pleuritic pain hemoptysis nausea vomiting abdominal pain change in bowel or bladder habits. Past medical history prescription medication use and allergies reviewed. .Patient presents with: Insect Bite: R inner thigh bee sting x2 days PAST MEDICAL HISTORY Diagnosis Date Herpes simplex virus (HSV) infection Miscarriage depression History reviewed. No pertinent surgical history. ALLERGIES Bactrim [Sulfamethoxazole-Trimethoprim ] MEDICATIONS prental multivitamin 27 mg iron- 800 mcg tablet Take 1 tablet by mouth once daily. FAMILY HISTORY Problem Relation Age of Onset No Known Problems Mother Asthma Father Asthma Sister No Known Problems Sister No Known Problems Maternal Grandmother other (stomach ulcer) Maternal Grandfather Asthma Paternal Grandmother other (lung) Paternal Grandmother No Known Problems Paternal Grandfather Social History Tobacco Use Smoking status: Former Years: 2 Types: Cigarettes Quit date: 12/13/2022 Years since quittin.3 Smokeless tobacco: Never Vaping Use Vaping Use: current everyday user Quit date: 12/13/2022 Substance Use Topics Alcohol use: Not Currently Drug use: Never BP 104/66 Pulse 66 Temp 36.4 ?C (97.5 ?F) Resp 18 Wt 76.9 kg (169 lb 9.6 oz) LMP 11/13/2022 (Exact Date) SpO2 99% BMI 32.05 kg/m? Review of Systems Constitutional: Negative for chills, fever and malaise/fatigue. HENT: Negative for congestion, ear discharge, ear pain, sinus pain and sore throat. Eyes: Negative for blurred vision, pain, discharge and redness. Respiratory: Negative for cough, hemoptysis, sputum production, shortness of breath, wheezing and stridor. Cardiovascular: Negative for chest pain. Gastrointestinal: Negative for abdominal pain, diarrhea, nausea and vomiting. Musculoskeletal: Negative for myalgias. Skin: Positive for itching. Negative for rash. Neurological: Negative for dizziness and headaches. Objective Physical Exam Constitutional: General: She is not in acute distress. Appearance: She is not toxic-appearing. HENT: Head: Normocephalic. Nose: Nose normal. Eyes: Pupils: Pupils are equal, round, and reactive to light. Cardiovascular: Rate and Rhythm: Normal rate. Pulmonary: Effort: Pulmonary effort is normal. No respiratory distress. Breath sounds: No wheezing or rales. Musculoskeletal: Cervical back: Normal range of motion. Skin: General: Skin is warm and dry. Comments: A 10 cm x 10 cm area of redness noted. Some warmth. Area representing insect sting in the center of area of redness noted. No inguinal adenopathy. No remote redness. No drainage. Neurological: General: No focal deficit present. Mental Status: She is alert. ASSESSMENT/PLAN: 1. Insect stings, accidental or unintentional, initial encounter - ICD9: 989.5, E905.5, ICD10: T63.481A (primary diagnosis) 2. Leg swelling - ICD9: 729.81, ICD10: M79.89 Diagnosed with insect sting. Low suspicion for bacterial infection. High suspicion for localized inflammation due to insect sting. We will treat conservatively at this time. Patient was educated on supportive therapies. Patient will follow up with primary care provider as needed. Patient was instructed to immediately proceed to emergency room for any new, worsening, or symptoms lasting longer than anticipated. The patient's clinical presentation is otherwise unremarkable at this time. Based on exam and clinical finding, the patient is stable for discharge. Plan of care was discussed with patient. Patient verbalizes understanding and agrees to plan of care. This note was generated using Via6 software. It may contain errors in wording, punctuation, or spelling. Angel Rapp APRN.[facility] 04-23-2023 History of Presen t illness Narrative Images from the original note were not included. Subjective HPI Nontoxic-appearing female presents urgent care chief complaint insect sting. Duration of symptoms 2 days. Associated symptoms itching and redness. Presents today to ensure she does not have a bacterial infection. Has used Benadryl this is helped some. Has not used any other OTC medications. Denies any significant pain. Denies any shortness of breath difficulty breathing difficulty handling secretions decreased range of motion of neck. Denies history of allergic reactions to insect stings in the past. Is currently 23 weeks . No vaginal discharge or abdominal pain. Good movement. Denies any fever body aches chills productive cough chest pain shortness of breath pleuritic pain hemoptysis nausea vomiting abdominal pain change in bowel or bladder habits. Past medical history prescription medication use and allergies reviewed. .Patient presents with: Insect Bite: R inner thigh bee sting x2 days PAST MEDICAL HISTORY Diagnosis Date Herpes simplex virus (HSV) infection Miscarriage depression History reviewed. No pertinent surgical history. ALLERGIES Bactrim [Sulfamethoxazole-Trimethoprim ] MEDICATIONS prental multivitamin 27 mg iron- 800 mcg tablet Take 1 tablet by mouth once daily. FAMILY HISTORY Problem Relation Age of Onset No Known Problems Mother Asthma Father Asthma Sister No Known Problems Sister No Known Problems Maternal Grandmother other (stomach ulcer) Maternal Grandfather Asthma Paternal Grandmother other (lung) Paternal Grandmother No Known Problems Paternal Grandfather Social History Tobacco Use Smoking status: Former Years: 2 Types: Cigarettes Quit date: 12/13/2022 Years since quittin.3 Smokeless tobacco: Never Vaping Use Vaping Use: current everyday user Quit date: 12/13/2022 Substance Use Topics Alcohol use: Not Currently Drug use: Never BP 104/66 Pulse 66 Temp 36.4 C (97.5 F) Resp 18 Wt 76.9 kg (169 lb 9.6 oz) LMP 11/13/2022 (Exact Date) SpO2 99% BMI 32.05 kg/m Review of Systems Constitutional: Negative for chills, fever and malaise/fatigue. HENT: Negative for congestion, ear discharge, ear pain, sinus pain and sore throat. Eyes: Negative for blurred vision, pain, discharge and redness. Respiratory: Negative for cough, hemoptysis, sputum production, shortness of breath, wheezing and stridor. Cardiovascular: Negative for chest pain. Gastrointestinal: Negative for abdominal pain, diarrhea, nausea and vomiting. Musculoskeletal: Negative for myalgias. Skin: Positive for itching. Negative for rash. Neurological: Negative for dizziness and headaches. Objective Physical Exam Constitutional: General: She is not in acute distress. Appearance: She is not toxic-appearing. HENT: Head: Normocephalic. Nose: Nose normal. Eyes: Pupils: Pupils are equal, round, and reactive to light. Cardiovascular: Rate and Rhythm: Normal rate. Pulmonary: Effort: Pulmonary effort is normal. No respiratory distress. Breath sounds: No wheezing or rales. Musculoskeletal: Cervical back: Normal range of motion. Skin: General: Skin is warm and dry. Comments: A 10 cm x 10 cm area of redness noted. Some warmth. Area representing insect sting in the center of area of redness noted. No inguinal adenopathy. No remote redness. No drainage. Neurological: General: No focal deficit present. Mental Status: She is alert. ASSESSMENT/PLAN: 1. Insect stings, accidental or unintentional, initial encounter - ICD9: 989.5, E905.5, ICD10: T63.481A (primary diagnosis) 2. Leg swelling - ICD9: 729.81, ICD10: M79.89 Diagnosed with insect sting. Low suspicion for bacterial infection. High suspicion for localized inflammation due to insect sting. We will treat conservatively at this time. Patient was educated on supportive therapies. Patient will follow up with primary care provider as needed. Patient was instructed to immediately proceed to emergency room for any new, worsening, or symptoms lasting longer than anticipated. The patient's clinical presentation is otherwise unremarkable at this time. Based on exam and clinical finding, the patient is stable for discharge. Plan of care was discussed with patient. Patient verbalizes understanding and agrees to plan of care. This note was generated using Via6 software. It may contain errors in wording, punctuation, or spelling. Angel Rapp APRN.BAIT PAINTER documented in this encounter [facility] 04-02-2023 Miscellaneous Notes Formattin g of this note might be different from the original. 2nd risk assessment form submitted at 20 wks. Kate Murdock RN documented in this encounter [facility] 03-29-2023 Miscellaneous Notes Formattin g of this note might be different from the original. S: Collin Hwang is a 22 year old female who presents at 19.3 weeks gestation for a routine visit. Just completed anatomy US with CL which was within normal range. Positive movement. Denies headache, visual changes, chest pain, shortness of breath, vaginal bleeding, leakage of fluid, or dysuria. Occasional round ligament pain on right side. Feeling well, no complaints. O: See flow sheet Gen: No apparent distress Abd: Gravid, nontender ASSESSMENT/PLAN: 1. 19 weeks gestation of - ICD9: V22.2, ICD10: Z3A.19 (primary diagnosis) 2. Supervision of high risk in second trimester - ICD9: V23.9, ICD10: O09.92 - Continue routine CL P: 1) PTL precautions reviewed and when to call 2) RTO 4 weeks Diana Kauffman APRN.CNM documented in this encounter [facility] 03-29-2023 Instructions Mauri Umana Cma - 03/29/2023 10:08 AM EDT SEQUENTIAL SCREENINGS [facility] offers sequential screenings for women who are interested in screenings for chromosomal abnormalities and certain defects during a . The sequential screen combines ultrasound and blood tests to determine the risk of chromosomal abnormalities, including Down's Syndrome (Trisomy 21) and Trisomy 18, as well as open neural tube defects including spina bifida. Ultrasound examination is performed between 11 weeks and 13 weeks gestational age. Blood tests are drawn after the ultrasound and again later in the between 15 and 21 weeks gestational age. Please let your physician know if you are interested in this testing. It will require an appointment with our oil and gas exploration technician. This is not an ultrasound performed by a physician in our office during a routine visit. SIGNS AND SYMPTOMS OF LABOR 1. Contractions every 10 minutes or more often 2. Clear, pink, or brownish fluid (water) leaking from vagina 3. Feeling that baby is pushing down, pressure 4. Low, dull backache 5. Cramps that feel like a period 6. Cramps with or without diarrhea If you notice any of the above symptoms, contact our office at [phone] and ask to speak with a nurse. After hours, you can call doctors registry at [phone] OR call [facility] at [phone] and ask to have the doctor combination building inspector paged. If you consider this an emergency, dial or go to your nearest emergency department. NEED HELP? Are you dealing with a violent or abusive relationship? Are you a victim of rape or sexual assult? Call [facility] ([place]) 24 hour Crisis Hotline: 401.414.2805 or 698-549-8854. MANUAL Your Guide to a Healthy manual is now on-line. Visit [email or web address] to download your free copy documented in this encounter [facility] 03-27-2023 Miscellaneous Notes Formattin g of this note might be different from the original. Please file order for anatomy US. Thank you. Marguerite Saucedo RN documented in this encounter [facility] 03-06-2023 Note HNO ID: [id number] Author: Nicolás Willis MD Service: ? Author Type: Physician Type: Progress Notes Filed: 03/06/2023 9:22 AM Note Text: OBSTETRICS MATERNAL MEDICINE CONSULT SERVICE DATE: March 06, 2023 SERVICE TIME: 0800 REQUESTING PROVIDER: Dr Blackwood Subjective HISTORY OF THE PRESENT ILLNESS: Collin is a 22 year old female, , who is at 16w1d with an MARIANNA of 08/20/2023, by Last Menstrual Period dating method. She presents for consultation due to history of delivery. Her first was at age 17, was uncomplicated until she presented with PPROM at 28w3d. She was expectantly managed until she developed chorioamnionitis at 30w2d. She was induced, was uncomplicated, infant weight 3lbs 10oz. Her son is in good health. Placental pathology showed acute chorioamnionitis/funisitis, mild fibrinoid deposition. She denies history of chronic medical conditions, takes vitamin only. She has been feeling overall well this . 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 Her partner had tested negative on his carrier screen, however current is with new partner. HISTORY REVIEW PAST MEDICAL HISTORY Diagnosis Date Herpes simplex virus (HSV) infection Miscarriage depression No past surgical history on file. FAMILY HISTORY Problem Relation Age of Onset No Known Problems Mother Asthma Father Asthma Sister No Known Problems Sister No Known Problems Maternal Grandmother other (stomach ulcer) Maternal Grandfather Asthma Paternal Grandmother other (lung) Paternal Grandmother No Known Problems Paternal Grandfather Social History Tobacco Use Smoking status: Former Years: 2.00 Types: Cigarettes Quit date: 12/13/2022 Years since quittin.2 Smokeless tobacco: Never Vaping Use Vaping Use: current everyday user Quit date: 12/13/2022 Substance Use Topics Alcohol use: Not Currently Drug use: Never Obstetric History T0 L1 SAB1 IAB0 Ectopic0 Multiple0 Live Births1 Name of Baby 1: Darren Date: 06/28/18 GA: 30w2d Delivery: Vaginal, Spontaneous Apgar1: Not recorded Apgar5: Not recorded Living: Living Name of Baby 2: Not recorded Date: 06/12/21 GA: 5w0d Delivery: MISSED AB Apgar1: Not recorded Apgar5: Not recorded Living: Not recorded Name of Baby 3: Not recorded Date: Not recorded GA: Not recorded Delivery: Not recorded Apgar1: Not recorded Apgar5: Not recorded Living: Not recorded ALLERGIES Allergen Reactions Bactrim [Sulfametho* Unknown PRIOR TO ADMISSION MEDICATIONS: Current Outpatient Medications Medication Instructions prental multivitamin 27 mg iron- 800 mcg tablet 1 tablet, ORAL, DAILY REVIEW OF SYSTEMS: The remainder of the review of systems is negative. Objective LAST VITALS: BP 90/50 Wt 162 lb (73.5 kg) LMP 11/13/2022 (Exact Date) BMI 30.61 kg/m? PHYSICAL EXAM: General: WD, WN HEENT: NC/AT, sclera white, pupils equal Lungs: normal respiratory effort Abdomen: soft, nontender during US exam LABS Diagnostic tests reviewed for today's visit: Most recent labs and imaging results. US today shows single live intrauterine Transvaginal cervical length is 2.9 cm without funnel or dynamic changes Impression/Recommendations 22 year old EGA:16w1d with history PPROM/ delivery. She is at increased risk for recurrent this . We discussed the current evidence regarding recurrent prevention. The evidence regarding prophylactic cerclage placement in women with history of one prior does not conclusively demonstrate benefit of prophylactic cerclage. We discussed serial cervical length screening and the results of Fortino randomized prospective trial. This study concluded that women with history of delivery <34 weeks can be screened with serial cervical length measurements starting at 16 weeks and have cerclage placed if < 25mm to reduce the risk of recurrent . In addition to this trial, subsequent meta analyses have shown that serial cervical length screening is a beneficial, safe alternative to prophylactic cerclage in women with a history of one prior . We discussed that vaginal progesterone has been shown to reduce the risk of delivery in women with shortened cervix on ultrasound. There is conflicting evidence regarding prophylactic use of vaginal progesterone without conclusive evidence to support this as prophylactic measure. However should TVCL shorten during second trimester recommend discussing vaginal progesterone (discuss both vaginal progesterone and cerclage if TVCL < 25 mm before 23 weeks). Discussed with patient that TVCL is shorter than expected today at 2.9 cm so will see in one week to re-check. If stable then likely plan (more content not included)... [facility] 02-28-2023 Miscellaneous Notes Formattin g of this note might be different from the original. Received records from [facility] from previous delivery. To [facility] mailbox for upcoming [facility] visit on 03/06/23. Danni Wan RN documented in this encounter [facility] 02-06-2023 Note HNO ID: [id number] Author: Sophia Haywood Ma Service: ? Author Type: ? Type: Progress Notes Filed: 02/06/2023 10:37 AM Note Text: Patient here for First Trimester Screening. See ultrasound report for details. Options for genetic screening and diagnosis discussed with the patient. Patient opts for first trimester screening and the sequential screening protocol. Limitations of screening tests discussed with the patient. Angélica Lima MD [facility] 02-06-2023 Miscellaneous Notes Formattin g of this note might be different from the original. KJ - VB No. LOF No. CTXS No. Movement: absent. Other c/o: No. Medication list reviewed. Physical Exam See Flow Sheet Gen: no accute distress, well appearing A/P 12w1d Estimated Date of Delivery: 08/20/23 NT with sequential today H/o PTD - cervical length at 16 weeks Angélica Lima MD documented in this encounter [facility] 02-06-2023 History of Presen t illness Narrative Patient here for First Trimester Screening. See ultrasound report for details. Options for genetic screening and diagnosis discussed with the patient. Patient opts for first trimester screening and the sequential screening protocol. Limitations of screening tests discussed with the patient. Angélica Lima MD documented in this encounter [facility] 02-06-2023 Instructions Sophia Haywood Ma - 02/06/2023 10:10 AM EDT SEQUENTIAL SCREENINGS [facility] offers sequential screenings for women who are interested in screenings for chromosomal abnormalities and certain defects during a . The sequential screen combines ultrasound and blood tests to determine the risk of chromosomal abnormalities, including Down's Syndrome (Trisomy 21) and Trisomy 18, as well as open neural tube defects including spina bifida. Ultrasound examination is performed between 11 weeks and 13 weeks gestational age. Blood tests are drawn after the ultrasound and again later in the between 15 and 21 weeks gestational age. Please let your physician know if you are interested in this testing. It will require an appointment with our oil and gas exploration technician. This is not an ultrasound performed by a physician in our office during a routine visit. SIGNS AND SYMPTOMS OF LABOR 1. Contractions every 10 minutes or more often 2. Clear, pink, or brownish fluid (water) leaking from vagina 3. Feeling that baby is pushing down, pressure 4. Low, dull backache 5. Cramps that feel like a period 6. Cramps with or without diarrhea If you notice any of the above symptoms, contact our office at [phone] and ask to speak with a nurse. After hours, you can call doctors registry at [phone] OR call [facility] at [phone] and ask to have the doctor combination building inspector paged. If you consider this an emergency, dial or go to your nearest emergency department. NEED HELP? Are you dealing with a violent or abusive relationship? Are you a victim of rape or sexual assult? Call [facility] 24 hour Crisis Hotline: 437.128.9247 or 493-203-2147. MANUAL Your Guide to a Healthy manual is now on-line. Visit [email or web address] to download your free copy SEQUENTIAL TESTING PROCESS Sequential Screen First Trimester Today you are currently: 12w1d weeks 02/06/2023: Ultrasound and blood test. Sequential Screen Second Trimester (16-17 Weeks Gestation) When you are called with your results, the nurse will give the optimal draw dates for the Sequential screen second trimester. Blood testing can be done at any [facility] lab. Please report to the any leather dresser office administrative assistant front desk for the Sequential Part 2 requisition and order before reporting to the lab. Your weight will need to be documented for testing. Please note: -No appointment is need for your second blood draw. -Office hours are 8 am to 4:30 pm. -Please have testing done prior to 12 noon on Sunday's -Once the sequential testing is started, in the first trimester the only follow-up will be for the sequential screen second trimester. Please don't have a Quad screen ordered by another provider. If you or your Provider have any questions please call your maternal medicine office, for east side please call [phone] or for the West side call [phone] and ask for the the nurse. Thank you. documented in this encounter [facility] 01-11-2023 Miscellaneous Notes Formattin g of this note might be different from the original. risk assessment form complete Ros Boogie RN documented in this encounter [facility] 01-09-2023 Note HNO ID: [id number] Author: Gunjan Blackwood MD Service: ? Author Type: Physician Type: Progress Notes Filed: 01/09/2023 1:45 PM Note Text: OB point of care ultrasound was performed. See imaging tab for details. Gunjan Blackwood M.D. INITIAL OB ASSESSMENT OB Provider: Gunjan Blackwood MD HPI: Collin is a 22 year old White here to establish Obstetrical Care. Patient's last menstrual period was 11/13/2022 (exact date). from OB Dating Form. Cycles regular was planned Complaints: None OB History T0 L1 SAB1 IAB0 Ectopic0 Multiple0 Live Births1 Previous history: Prior : never History of 4th degree laceration: No History of shoulder dystocia: No History of Hypertensive disorders including pre-eclampsia, chronic hypertension or gestational hypertension: No History of gestational diabetes: No Patient's Risk Screening for delivery: MEDICAL/PSYCHOSOCIAL HISTORY: History of hemorrhage or bleeding concerns: No Thyroid Disease: No History of chronic hypertension: No History of pre-existing diabetes: No No results found for: ABORHD BMI 30.23 kg/(m2) History of abnormal pap: No Prior treatment for cervical dysplasia: none. History of STDs: None Tobacco use: yes but quit Caffeine use: Yes Drug use: No Alcohol use: No Multivitamin with Folic acid: Yes Mormonism or heritage: No Would refuse blood transfusion if medically necessary: No Are you currently employed? 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 Do you have any history of depression, anxiety, PTSD, eating disorders or other mood problems: Yes- PP depression Do you have any safety concerns or history of traumatic events that you would like to discuss with your provider: No GENETIC SCREENING: Partner present: Yes Patient verbalized knowledge of partner family health history: Yes Do you or your partner have any personal or family history of defects not previously discussed: No Do you have history of a complicated by anomaly, genetic condition, or demise: No Marital Status:Co-habitating Partner: Name: Erik Soria Age: 23 Occupation: fabricator Gender: Male History of STDs: None PAST MEDICAL HISTORY Diagnosis Date Herpes simplex virus (HSV) infection Miscarriage depression History reviewed. No pertinent surgical history. Current Outpatient Medications Medication Sig Dispense Refill prental multivitamin 27 mg iron- 800 mcg tablet Take 1 tablet by mouth once daily. No current facility-administered medications for this visit. Allergies As of Date: 01/09/2023 Allergen Noted Reaction BACTRIM [SULFAMETHOXAZOLE-TRIMETH*09/0 02/2016 Unknown Fully Assessed 01/09/2023 Does patient have penicillin allergy: No REVIEW OF SYSTEMS: GENERAL: Negative for: Fever or Chills HEENT: Negative for: Headache, Impaired Vision, Ringing in Ears, Nosebleeds NECK: Negative for: Swelling, Pain, Stiffness RESPIRATORY: Negative for: Cough, Shortness of breath, Wheezing GASTROINTESTINAL: Negative for: Heartburn, Constipation, Diarrhea, Blood in stool, Vomiting MUSCULOSKELETAL: Negative for: Muscle or joint pain, stiffness, Joint swelling NEUROLOGIC/PSYCHIATRIC: Negative for: Weakness, Paralysis, Numbness, Tingling, Tremor, Anxiety, Depression, Memory loss SKIN: Negative for: Rash, Itching GENITOURINARY: Negative for: vaginal itching, vaginal discharge, hematuria or dysuria PHYSICAL EXAM: BP 108/66 Ht 5' 1 (1.55m) Wt 160 lb (72.6kg) LMP 11/13/2022 BMI 30.25 kg/(m2). GENERAL: pleasant in no apparent distress DERMATOLOGY: Normal, without lesions, non-icteric, and non-hirsute NECK: Supple, full range of motion, no adenopathy, and thyroid normal CHEST: Normal inspiratory effort BREAST: soft, non-tender, symmetric, no dominant mass, normal nipple-areolar complex, no lymphadenopathy, and no nipple discharge ABDOMEN: soft, non-tender, and no masses NEURO: alert and oriented x3,exam grossly non-focal PELVIS: External genitalia normal without lesions. Perineal body intact. No vaginal or cervical lesions. Cervix closed. Uterus 8 week size. No adnexal masses or tenderness. Clinical Pelvimetry: Pelvimetry clinically assessed as adequate Limited OB ultrasound exam: single intrauterine OB Risk Screening: Completed, positive findings include: Patient answered 'Yes' they had a prior barry between 20w and 36w6d. ASSESSMENT: 22 year old at 8w1d wks gestational age PLAN: 1) Patient oriented to practice. Patient given new OB orientation folder. Discussed nutrition, folic acid supplementation, dietary guidelines, exercise, smoking, alcohol, caffeine, and drug use. Discussed gestational weight gain guidelines. Discussed routine OB labs including STD/HIV. 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 Tra (more content not included)... [facility] 01-09-2023 History of Presen t illness Narrative OB point of care ultrasound was performed. See imaging tab for details. Gunjan Blackwood M.D. INITIAL OB ASSESSMENT OB Provider: Gunjan Blackwood MD HPI: Collin is a 22 year old White here to establish Obstetrical Care. Patient's last menstrual period was 11/13/2022 (exact date). from OB Dating Form. Cycles regular was planned Complaints: None OB History T0 L1 SAB1 IAB0 Ectopic0 Multiple0 Live Births1 Previous history: Prior : never History of 4th degree laceration: No History of shoulder dystocia: No History of Hypertensive disorders including pre-eclampsia, chronic hypertension or gestational hypertension: No History of gestational diabetes: No Patient's Risk Screening for delivery: MEDICAL/PSYCHOSOCIAL HISTORY: History of hemorrhage or bleeding concerns: No Thyroid Disease: No History of chronic hypertension: No History of pre-existing diabetes: No No results found for: ABORHD BMI 30.23 kg/(m^2) History of abnormal pap: No Prior treatment for cervical dysplasia: none. History of STDs: None Tobacco use: yes but quit Caffeine use: Yes Drug use: No Alcohol use: No Multivitamin with Folic acid: Yes Mormonism or heritage: No Would refuse blood transfusion if medically necessary: No Are you currently employed? 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 Do you have any history of depression, anxiety, PTSD, eating disorders or other mood problems: Yes- PP depression Do you have any safety concerns or history of traumatic events that you would like to discuss with your provider: No GENETIC SCREENING: Partner present: Yes Patient verbalized knowledge of partner family health history: Yes Do you or your partner have any personal or family history of defects not previously discussed: No Do you have history of a complicated by anomaly, genetic condition, or demise: No Marital Status:Co-habitating Partner: Name: Erik Soria Age: 23 Occupation: fabricator Gender: Male History of STDs: None PAST MEDICAL HISTORY Diagnosis Date Herpes simplex virus (HSV) infection Miscarriage depression History reviewed. No pertinent surgical history. Current Outpatient Medications Medication Sig Dispense Refill prental multivitamin 27 mg iron- 800 mcg tablet Take 1 tablet by mouth once daily. No current facility-administered medications for this visit. Allergies As of Date: 01/09/2023 Allergen Noted Reaction BACTRIM [SULFAMETHOXAZOLE-TRIMETH*09/0 02/2016 Unknown Fully Assessed 01/09/2023 Does patient have penicillin allergy: No REVIEW OF SYSTEMS: GENERAL: Negative for: Fever or Chills HEENT: Negative for: Headache, Impaired Vision, Ringing in Ears, Nosebleeds NECK: Negative for: Swelling, Pain, Stiffness RESPIRATORY: Negative for: Cough, Shortness of breath, Wheezing GASTROINTESTINAL: Negative for: Heartburn, Constipation, Diarrhea, Blood in stool, Vomiting MUSCULOSKELETAL: Negative for: Muscle or joint pain, stiffness, Joint swelling NEUROLOGIC/PSYCHIATRIC: Negative for: Weakness, Paralysis, Numbness, Tingling, Tremor, Anxiety, Depression, Memory loss SKIN: Negative for: Rash, Itching GENITOURINARY: Negative for: vaginal itching, vaginal discharge, hematuria or dysuria PHYSICAL EXAM: BP 108/66 Ht 5' 1 (1.55m) Wt 160 lb (72.6kg) LMP 11/13/2022 BMI 30.25 kg/(m^2). GENERAL: pleasant in no apparent distress DERMATOLOGY: Normal, without lesions, non-icteric, and non-hirsute NECK: Supple, full range of motion, no adenopathy, and thyroid normal CHEST: Normal inspiratory effort BREAST: soft, non-tender, symmetric, no dominant mass, normal nipple-areolar complex, no lymphadenopathy, and no nipple discharge ABDOMEN: soft, non-tender, and no masses NEURO: alert and oriented x3,exam grossly non-focal PELVIS: External genitalia normal without lesions. Perineal body intact. No vaginal or cervical lesions. Cervix closed. Uterus 8 week size. No adnexal masses or tenderness. Clinical Pelvimetry: Pelvimetry clinically assessed as adequate Limited OB ultrasound exam: single intrauterine OB Risk Screening: Completed, positive findings include: Patient answered 'Yes' they had a prior barry between 20w and 36w6d. ASSESSMENT: 22 year old at 8w1d wks gestational age PLAN: 1) Patient oriented to practice. Patient given new OB orientation folder. Discussed nutrition, folic acid supplementation, dietary guidelines, exercise, smoking, alcohol, caffeine, and drug use. Discussed gestational weight gain guidelines. Discussed routine OB labs including STD/HIV. 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 Discussed aneuploidy and carrier screening. Regarding aneuploidy screening, nuchal translucency/first trimester early anatomy ultrasound and NIPT were discussed. Regarding carrier screening, the myriad screen was discussed. The risks/benefits and limitations of NIPT/aneuploidy screening were reviewed including the potential for false negative and false positive results. We discussed the availability of professional-society guided carrier screening and reviewed the conditions screened and limitations of screening. The availability of genetic counseling was reviewed. Information on aneuploidy/carrier screening was provided. The patient chooses: Aneuploidy screening: chooses to proceed with First trimester early anatomy ultrasound (12-13w6d) and NIPT (10 weeks) and Carrier screening: Accepts Patient offered option of Virtual Visits. Patient unsure. May consider in future. 2) History of . Will order MFM consult for further discussion. Patient with Obesity (BMI >30), will order early glucose screen or Hemoglobin A1C. Follow up in 4 weeks or sooner prn. Gunjan Blackwood MD documented in this encounter [facility] 01-09-2023 Instructions Beverly Rios Ma - 01/09/2023 1:03 PM EDT Please select the following link to access the [facility] Your Guide to a Healthy . [email or web address] vimal documented in this encounter [facility] 01-04-2023 Note HNO ID: [id number] Author: Christa Jane RN Service: ? Author Type: ? Type: Progress Notes Filed: 01/04/2023 4:13 PM Note Text: # 1 - Date: [birth year]28[birth year], Sex: Male, Weight: 3 lb 10 oz (1.644 kg), GA: 31w0d, Delivery: Vaginal, Spontaneous, Apgar1: None, Apgar5: None, Living: Living, Comments: was hospitaized for PTL 1 month prior to delivery-was hospitalized from that time to delivery # 2 - Date: 06/12/21, Sex: None, Weight: None, GA: 5w0d, Delivery: MISSED AB, Apgar1: None, Apgar5: None, Living: None, Comments: No DANDC # 3 - Date: None, Sex: None, Weight: None, GA: None, Delivery: None, Apgar1: None, Apgar5: None, Living: None, Comments: None [facility] 12-20-2022 Miscellaneous Notes Formattin g of this note might be different from the original. PNOB scheduled. Marguerite Saucedo RN Left message for patient to return phone call. Patient has an appointment with Dr Blackwood for NOB appointment. Please schedule PNOB appointment. documented in this encounter [facility] 09-30-2022 Note HNO ID: [id number] Author: Donny Madden APRN.BAIT PAINTER Service: ? Author Type: Nurse Practitioner Type: Progress Notes Filed: 09/30/2022 12:08 PM Note Text: Subjective HPI HPI Collin Hwang is a 21 year old female who presents today for CC of st. This started 4 days ago. Has tried otc medication for relief. Symptoms are worsened by nothing. Risk factors hx of strep, sick exposures at home. Denies possibility of being . smoker. .Patient presents with: Sore Throat: X 4 days No past medical history on file. No past surgical history on file. ALLERGIES Bactrim [Sulfamethoxazole-Trimethoprim ] MEDICATIONS amoxicillin (POLYMOX, AMOXIL) 500 mg capsule Take 1 capsule by mouth twice daily for 10 days. No family history on file. Social History Tobacco Use Smoking status: Every Day Smokeless tobacco: Never Tobacco comments: Pt vapes Vaping Use Vaping Use: current everyday user Substance Use Topics Alcohol use: Not Currently Drug use: Never Review of Systems Constitutional: Negative for fever. HENT: Positive for sore throat. Negative for congestion, ear pain and nosebleeds. Respiratory: Negative for cough, shortness of breath and wheezing. Musculoskeletal: Negative for neck pain. Objective Physical Exam Constitutional: General: She is not in acute distress. Appearance: She is not toxic-appearing or diaphoretic. HENT: Head: Normocephalic and atraumatic. Right Ear: Hearing, tympanic membrane, ear canal and external ear normal. Left Ear: Hearing, tympanic membrane, ear canal and external ear normal. Nose: Nose normal. Mouth/Throat: Pharynx: Uvula midline. Posterior oropharyngeal erythema present. No pharyngeal swelling, oropharyngeal exudate or uvula swelling. Eyes: General: Lids are normal. No scleral icterus. Right eye: No discharge. Left eye: No discharge. Conjunctiva/sclera: Conjunctivae normal. Pupils: Pupils are equal, round, and reactive to light. Neck: Trachea: Trachea normal. Cardiovascular: Rate and Rhythm: Normal rate and regular rhythm. Heart sounds: Normal heart sounds. Pulmonary: Effort: Pulmonary effort is normal. Breath sounds: Normal breath sounds. Musculoskeletal: Cervical back: Normal range of motion and neck supple. Lymphadenopathy: Cervical: No cervical adenopathy. Right cervical: No superficial cervical adenopathy. Left cervical: No superficial cervical adenopathy. Skin: Findings: No rash. Neurological: Mental Status: She is alert and oriented to person, place, and time. ASSESSMENT/PLAN: 1. Strep throat - ICD9: 034.0, ICD10: J02.0 (primary diagnosis) - suspect strep - Alere Strep Test pos, no culture pending - antibiotic as written - Discussed supportive care treatment with fluids, rest and analgesia. - The patient should follow up in 3-5 days if symptoms persist or worsen - AMOXICILLIN 500 MG CAPSULE 2. Sore throat - ICD9: 462, ICD10: J02.9 Positive, strep - STREP A MOLECULAR (POC) Donny Madden APRN.[facility] 09-30-2022 History of Presen t illness Narrative Subjective HPI HPI Collin Hwang is a 21 year old female who presents today for CC of st. This started 4 days ago. Has tried otc medication for relief. Symptoms are worsened by nothing. Risk factors hx of strep, sick exposures at home. Denies possibility of being . smoker. .Patient presents with: Sore Throat: X 4 days No past medical history on file. No past surgical history on file. ALLERGIES Bactrim [Sulfamethoxazole-Trimethoprim ] MEDICATIONS amoxicillin (POLYMOX, AMOXIL) 500 mg capsule Take 1 capsule by mouth twice daily for 10 days. No family history on file. Social History Tobacco Use Smoking status: Every Day Smokeless tobacco: Never Tobacco comments: Pt vapes Vaping Use Vaping Use: current everyday user Substance Use Topics Alcohol use: Not Currently Drug use: Never Review of Systems Constitutional: Negative for fever. HENT: Positive for sore throat. Negative for congestion, ear pain and nosebleeds. Respiratory: Negative for cough, shortness of breath and wheezing. Musculoskeletal: Negative for neck pain. Objective Physical Exam Constitutional: General: She is not in acute distress. Appearance: She is not toxic-appearing or diaphoretic. HENT: Head: Normocephalic and atraumatic. Right Ear: Hearing, tympanic membrane, ear canal and external ear normal. Left Ear: Hearing, tympanic membrane, ear canal and external ear normal. Nose: Nose normal. Mouth/Throat: Pharynx: Uvula midline. Posterior oropharyngeal erythema present. No pharyngeal swelling, oropharyngeal exudate or uvula swelling. Eyes: General: Lids are normal. No scleral icterus. Right eye: No discharge. Left eye: No discharge. Conjunctiva/sclera: Conjunctivae normal. Pupils: Pupils are equal, round, and reactive to light. Neck: Trachea: Trachea normal. Cardiovascular: Rate and Rhythm: Normal rate and regular rhythm. Heart sounds: Normal heart sounds. Pulmonary: Effort: Pulmonary effort is normal. Breath sounds: Normal breath sounds. Musculoskeletal: Cervical back: Normal range of motion and neck supple. Lymphadenopathy: Cervical: No cervical adenopathy. Right cervical: No superficial cervical adenopathy. Left cervical: No superficial cervical adenopathy. Skin: Findings: No rash. Neurological: Mental Status: She is alert and oriented to person, place, and time. ASSESSMENT/PLAN: 1. Strep throat - ICD9: 034.0, ICD10: J02.0 (primary diagnosis) - suspect strep - Alere Strep Test pos, no culture pending - antibiotic as written - Discussed supportive care treatment with fluids, rest and analgesia. - The patient should follow up in 3-5 days if symptoms persist or worsen - AMOXICILLIN 500 MG CAPSULE 2. Sore throat - ICD9: 462, ICD10: J02.9 Positive, strep - STREP A MOLECULAR (POC) Donny Madden APRN.BAIT PAINTER documented in this encounter [facility] 08-03-2022 Miscellaneous Notes Formattin g of this note might be different from the original. Patient identified by name and date of . I advised patient of positive COVID-19 test result. The CDC recommends that people refrain from work and isolate themselves until the following criteria are met: At least 24 hours have passed since last fever without the use of fever-reducing medications Other symptoms have improved At least 5 days have passed since symptoms first appeared - Follow-up with your PCP in 3-5 days if symptoms have not improved or sooner if symptoms worsen - Discussed red flags and need for immediate medical evaluation if any occur. - Discussed supportive care treatment with fluids, rest and analgesia. - Discussed expected course of illness Pratibha Amaro APRN.BAIT PAINTER documented in this encounter [facility] 08-02-2022 History of Presen t illness Narrative Subjective Fever Associated symptoms include congestion. Pertinent negatives include no chest pain, no diarrhea, no vomiting and no sore throat. Collin Hwang is a 21 year old female who presents with 2 days of congestion, cough, fever, fatigue, body aches, sinus pressure. She took a COVID test at home and it was positive. She has been taking tylenol for fever. Review of Systems Constitutional: Positive for fever and malaise/fatigue. HENT: Positive for congestion and sinus pain. Negative for ear pain and sore throat. Respiratory: Negative for shortness of breath. Cardiovascular: Negative for chest pain. Gastrointestinal: Negative for diarrhea and vomiting. Musculoskeletal: Positive for myalgias. BP 122/80 Pulse 95 Temp 37.9 C (100.2 F) (Tympanic) Resp 18 Wt 76 kg (167 lb 9.6 oz) LMP 05/14/2021 SpO2 98% History reviewed. No pertinent past medical history. No past surgical history on file. ALLERGIES Bactrim [Sulfamethoxazole-Trimethoprim ] MEDICATIONS No prescriptions on file. No family history on file. Social History Tobacco Use Smoking status: Every Day Smokeless tobacco: Never Tobacco comments: Pt vapes Vaping Use Vaping Use: current everyday user Substance Use Topics Alcohol use: Not Currently Drug use: Never Objective Physical Exam Vitals and nursing note reviewed. Constitutional: Appearance: Normal appearance. HENT: Nose: Congestion present. Mouth/Throat: Pharynx: Uvula midline. Cardiovascular: Rate and Rhythm: Normal rate and regular rhythm. Heart sounds: Normal heart sounds. Pulmonary: Effort: Pulmonary effort is normal. No respiratory distress. Breath sounds: Normal breath sounds. No wheezing or rales. Musculoskeletal: Cervical back: Neck supple. Lymphadenopathy: Cervical: No cervical adenopathy. Skin: General: Skin is warm and dry. Findings: No erythema or rash. Neurological: Mental Status: She is alert. ASSESSMENT/PLAN: 1. Suspected COVID-19 virus infection - ICD9: V01.79, ICD10: Z20.822 - COVID WITH FLUA+B, ROUTINE - Follow-up with your PCP in 3-5 days if symptoms have not improved or sooner if symptoms worsen - Discussed red flags and need for immediate medical evaluation if any occur. - Discussed supportive care treatment with fluids, rest and analgesia. - Discussed expected course of illness Pratibha Amaro APRN.CNP documented in this encounter [facility] 08-02-2022 Instructions Pratibha Amaro APRN.CNP - 08/02/2022 6:17 PM EST ASSESSMENT/PLAN: 1. Suspected COVID-19 virus infection - ICD9: V01.79, ICD10: Z20.822 - COVID WITH FLUA+B, ROUTINE - Follow-up with your PCP in 3-5 days if symptoms have not improved or sooner if symptoms worsen - Discussed red flags and need for immediate medical evaluation if any occur. - Discussed supportive care treatment with fluids, rest and analgesia. - Discussed expected course of illness Pratibha Amaro APRN.CNP Beginning Home Isolation Isolation is used to separate people infected with SARS-CoV-2, the virus that causes COVID-19, from people who are not infected. People who are in isolation should stay home until it s safe for them to be around others. In the home, anyone sick or infected should separate themselves from others by staying in a specific sick room or area and using a separate bathroom (if available). Isolation or Quarantine: What's the difference? Quarantine keeps someone who might have been exposed to the virus away from others. Isolation keeps someone who is infected with the virus away from others, even in their home. Who needs to isolate People who have COVID-19 People who have symptoms of COVID-19 and are able to recover at home People who have no symptoms (are asymptomatic) but have tested positive for infection with SARS-CoV-2 Steps to take Stay home except to get medical care Monitor your symptoms. Stay in a separate room from other household members, if possible Use a separate bathroom, if possible Avoid contact with other members of the household and pets Don t share personal household items, like cups, towels, and utensils Wear a mask when around other people, if you are able to When to seek emergency medical attention Look for emergency warning signs* for COVID-19. If someone is showing any of these signs, seek emergency medical care immediately: Trouble breathing Persistent pain or pressure in the chest New confusion Inability to wake or stay awake Bluish lips or face *This list is not all possible symptoms. Please call your medical provider for any other symptoms that are severe or concerning to you. Call 911 or call ahead to your local emergency facility: Notify the plant operator that you are seeking care for someone who has or may have COVID-19. Ending Home Isolation - When you can be around others after you had or likely had COVID-19 When you can be around others after you had or likely had COVID-19 If You Test Positive for COVID-19 (Isolation) Everyone, regardless of vaccination status: Stay home for 5 days. Note: Day 0 is your first day of symptoms or the date of collection of a positive viral test if no symptoms. Day 1 is the first full day after symptoms developed or test specimen was collected. If you have no symptoms or your symptoms are resolving after 5 days, you can leave your house. Continue to wear a mask around others for 5 additional days. If you have a fever, continue to stay home until your fever resolves, even if it is longer than 5 days. If You Were Exposed to Someone with COVID-19 (Quarantine) If you: 1. Have been boosted OR 2. Completed the primary series of Pfizer or Moderna vaccine within the last 6 months OR 3. Completed the primary series of J&J vaccine within the last 2 months THEN: 1. Wear a mask around others for 10 days. 2. Test on day 5, if possible. If you develop symptoms get a test and stay home. If You Were Exposed to Someone with COVID-19 (Quarantine) If you: 1. Completed the primary series of Pfizer or Moderna vaccine over 6 months ago and are not boosted OR 2. Completed the primary series of J&J over 2 months ago and are not boosted OR 3. Are unvaccinated THEN: 1. Stay home for 5 days. After that continue to wear a mask around others for 5 additional days. 2. If you can't quarantine you must wear a mask for 10 days. 3. Test on day 5 if possible. If you develop symptoms get a test and stay home. I had COVID-19 or I tested positive for COVID-19 and I have a weakened immune system If you have a weakened immune system (immunocompromised) due to a health condition or medication, you might need to stay home and isolate longer than 10 days. Talk to your healthcare provider for more information. Your doctor may work with an infectious disease expert at your local health department to determine when you can be around others. How to Manage Common Symptoms Associated with COVID for Adults Fever- Fever is a temperature over 100.4 F and can occur when the body is fighting an infection. To help treat a fever: Drink plenty of fluids and stay well hydrated. Eat small amounts of easy to digest food. Rest. Your body needs rest to recover, but getting up and moving around the house frequently is a good idea. You should try to continue doing your normal daily activities (bathing, toileting, grooming, cooking), though you will probably feel tired, and need to rest often. Avoid any heavy activity or exercise, as this will increase your body temperature. Dress in light clothing and stay covered in a light sheet. Keep the room temperature cool. Take a slightly warm (not cold or cool) bath, or apply damp washcloths to the forehead and wrists. Cough- Cough is a common symptom associated with COVID and can be bothersome. To help treat a cough: Stay well hydrated. Try warm water or tea with lemon and/or honey to help soothe the cough. Use a humidifier to add moisture to the air. Try a product with menthol, like a cough drop or a rub for your chest such as Vicks, which can help reduce cough. Try cough drops. Avoid smoking and other strong odors or perfumes. Try breathing exercises to keep your lungs open and clear. Take a big deep breath through your nose and hold for 5 seconds before slowly releasing. Repeat frequently, while you are awake. Congestion- Runny nose or nasal congestion can occur with COVID. Treatment can help relieve symptoms: Try OTC nasal saline spray, or nasal saline rinse to relieve mucus congestion. Nasal strips can help keep nasal passages open, to increase airflow. Elevating your head with an extra pillow in bed can help reduce congestion. Using a humidifier can increase moisture in the air, and make breathing easier. Sore Throat- Another common symptom with COVID, can be managed at home by: Stay well hydrated. Gargle with salt water - mix teaspoon salt with 1 cup of warm water and gargle. This helps to loosen mucus in the back of the throat and may reduce discomfort. Try ice chips, popsicles or lozenges to soothe the throat. Nausea/Vomiting/Diarrhea- These are common symptoms, and staying hydrated is most important. If you are nauseous or vomiting, start with small sips of water every 10-15 minutes and increase as tolerated. You can try sucking an ice cube too. If tolerating, you can try pedialyte or Gatorade, or flat sprite or cosme-isai. Start slowly and increase as you are able to. Instead of meals, try smaller, more frequent snacks. Try eating bland foods like crackers, toast, rice, and applesauce. Avoid spicy, greasy or fried foods and dairy containing foods. Even if you aren't feeling hungry due to lack of smell or taste, it is important to try to take in some food when you are able. After drinking and eating, rest in an upright position for up to two hours as needed to help decrease nauseous feelings. Try closing your eyes, avoid moving and watching TV. Avoid strong odors that can make you feel more nauseated. When to seek emergency medical attention Look for emergency warning signs for COVID-19. If having any of these symptoms, seek emergency medical care immediately: Trouble breathing Persistent pain or pressure in the chest New confusion Inability to wake or stay awake Bluish lips or face *This list is not all possible symptoms. Please call your medical provider for any other symptoms that are severe or concerning to you. documented in this encounter [facility] documented as of this encounter (statuses as of 03/15/2023) [facility]11[facility]2021 History of Past illness Narrative* Problem Noted Date Diagnosed Date Resolved Date Miscarriage, threatened, early 06/22/2021 03/06/2023 documented as of this encounter (statuses as of 03/28/2023) [address]10-2021 History of Past illness Narrative* Problem Noted Date Diagnosed Date Resolved Date Miscarriage, threatened, early 06/22/2021 03/06/2023 documented as of this encounter (statuses as of 03/29/2023) [facility]2021 History of Past illness Narrative* Problem Noted Date Diagnosed Date Resolved Date Miscarriage, threatened, early 06/22/2021 03/06/2023 documented as of this encounter (statuses as of 03/29/2023) [facility] History of Past illness Narrative* Problem Noted Date Diagnosed Date Resolved Date Miscarriage, threatened, early 06/22/2021 03/06/2023 documented as of this encounter (statuses as of 04/02/2023) [facility] History of Past illness Narrative* Problem Noted Date Diagnosed Date Resolved Date Miscarriage, threatened, early 06/22/2021 03/06/2023 documented as of this encounter (statuses as of 04/24/2023) [address]10-2021 History of Past illness Narrative* Problem Noted Date Diagnosed Date Resolved Date Miscarriage, threatened, early 06/22/2021 03/06/2023 documented as of this encounter (statuses as of 04/26/2023) [address]10-2021 History of Past illness Narrative* Problem Noted Date Diagnosed Date Resolved Date Miscarriage, threatened, early 06/22/2021 03/06/2023 documented as of this encounter (statuses as of 04/26/2023) [address]10-2021 History of Past illness Narrative* Problem Noted Date Diagnosed Date Resolved Date Miscarriage, threatened, early 06/22/2021 03/06/2023 documented as of this encounter (statuses as of 04/27/2023) [address]10-2021 History of Past illness Narrative* Problem Noted Date Diagnosed Date Resolved Date Miscarriage, threatened, early 06/22/2021 03/06/2023 documented as of this encounter (statuses as of 04/30/2023) [address]10-2021 History of Past illness Narrative* Problem Noted Date Diagnosed Date Resolved Date Miscarriage, threatened, early 06/22/2021 03/06/2023 documented as of this encounter (statuses as of 05/24/2023) [address]10-2021 History of Past illness Narrative* Problem Noted Date Diagnosed Date Resolved Date Miscarriage, threatened, early 06/22/2021 03/06/2023 documented as of this encounter (statuses as of 05/25/2023) [address]10-2021 History of Past illness Narrative* Problem Noted Date Diagnosed Date Resolved Date Miscarriage, threatened, early 06/22/2021 03/06/2023 documented as of this encounter (statuses as of 06/12/2023) [address]-2021 History of Past illness Narrative* Problem Noted Date Diagnosed Date Resolved Date Miscarriage, threatened, early 06/22/2021 03/06/2023 documented as of this encounter (statuses as of 06/21/2023) [address]10-2021 History of Past illness Narrative* Problem Noted Date Diagnosed Date Resolved Date Miscarriage, threatened, early 06/22/2021 03/06/2023 documented as of this encounter (statuses as of 07/04/2023) [address]-2021 History of Past illness Narrative* Problem Noted Date Diagnosed Date Resolved Date Miscarriage, threatened, early 06/22/2021 03/06/2023 documented as of this encounter (statuses as of 08/02/2023) [address]10-2021 History of Past illness Narrative* Problem Noted Date Diagnosed Date Resolved Date Miscarriage, threatened, early 06/22/2021 03/06/2023 documented as of this encounter (statuses as of 08/02/2023) [facility] Suspected [facility]-19 virus infection- Primary [facility] Diagnosis Strep throat- Primary Streptococcal sore throat Sore throat Acute pharyngitis [facility] Diagnosis Supervision of other high risk pregnancies, first trimester- Primary with uncertain dates in first trimester Screening for cervical cancer Screening for malignant neoplasm of the cervix Encounter for screening of mother Unspecified screening History of delivery, currently in first trimester 8 weeks gestation of state, incidental [facility] Diagnosis of unknown anatomic location- Primary state, incidental [facility] Diagnosis Encounter for (NT) nuchal translucency scan- Primary Other specified screening Encounter for screening of mother Unspecified screening Supervision of other high risk pregnancies, first trimester 12 weeks gestation of state, incidental [facility] Diagnosis Encounter for supervision of other normal , first trimester- Primary 12 weeks gestation of state, incidental Encounter for screening of mother Unspecified screening [facility] Diagnosis History of delivery- Primary Supervision of high risk in second trimester Unspecified high-risk 17 weeks gestation of state, incidental [facility] Diagnosis Encounter for anatomic survey- Primary [facility] Diagnosis 19 weeks gestation of - Primary state, incidental Supervision of high risk in second trimester Unspecified high-risk [facility] Diagnosis Encounter for anatomic survey- Primary 18 weeks gestation of state, incidental History of delivery, currently with history of pre-term labor Obesity affecting in second trimester, unspecified obesity type [facility] Diagnosis Insect stings, accidental or unintentional, initial encounter- Primary Leg swelling Swelling of limb [facility] Diagnosis 23 weeks gestation of - Primary state, incidental Supervision of high risk in second trimester Unspecified high-risk History of delivery [facility] Diagnosis Supervision of high risk in second trimester- Primary Unspecified high-risk 23 weeks gestation of state, incidental History of delivery [facility] Diagnosis 24 weeks gestation of - Primary state, incidental Short cervix affecting Cervical shortening, unspecified as to episode of care or not applicable [facility] Diagnosis 27 weeks gestation of - Primary state, incidental Supervision of high risk in second trimester Unspecified high-risk Need for vaccination Need for prophylactic vaccination and inoculation against unspecified single disease 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 [facility] Diagnosis Abnormal glucose complicating - Primary Abnormal maternal glucose tolerance, complicating , childbirth, or the puerperium, unspecified as to episode of care [facility] Diagnosis 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 [facility] Diagnosis Supervision of high risk in third trimester- Primary Unspecified high-risk 31 weeks gestation of state, incidental 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 History of delivery [facility] Diagnosis 33 weeks gestation of - Primary state, incidental Supervision of high risk in third trimester Unspecified high-risk Encounter for prophylactic immunotherapy for respiratory syncytial virus (RSV) [facility] Diagnosis Supervision of other high risk , antepartum- Primary 37 weeks gestation of state, incidental Positive GBS test documented in this encounter [facility] for referral (narrative)* Diagnostic Procedure Only (Routine) - Authorized Specialty Diagnoses / Procedures Referred By Contac t Referred To Contact [facility] Diagnoses Supervision of other high risk pregnancies, first trimester History of delivery, currently in first trimester Procedures OBSTETRIC ULTRASOUND WHI US PREG UTERUS AFTER 1ST TRIMEST GESTATION Gunjan Blackwood MD [address] [place] [address] [facility] [address] [place] [id number] Referral ID Status Reason Start Date Expiration Date Visits Requested Visits Authorized [id number] Authorized Auto-Generat ed Referral 01/09/2023 01/09/2024 1 1 * Consult, Test, Treat (Routine) - Authorized Specialty Diagnoses / Procedures Referred By Contac t Referred To Contact Diagnoses Supervision of other high risk pregnancies, first trimester History of delivery, currently in first trimester Procedures CONSULT TO MATERNAL MEDI OFFICE/OUTPATIENT NEW HIGH MDM 60-74 MINUTES Gunjna Blackwood MD [address] [place] [address] Referral ID Status Reason Start Date Expiration Date Visits Requested Visits Authorized [id number] Authorized PCP Requested Referral Auto-Generate d Referral 01/09/2023 01/09/2024 1 1 * Diagnostic Procedure Only (Routine) - Authorized Specialty Diagnoses / Procedures Referred By Contac t Referred To Contact [facility] Diagnoses Encounter for screening of mother Supervision of other high risk pregnancies, first trimester Procedures NUCHAL TRANSLUCENCY WHI US NUCHAL TRANSLUCENCY 1ST GESTATION Gunjan Blackwood MD [address] [place] [address] [facility] [address] [place] [address] Referral ID Status Reason Start Date Expiration Date Visits Requested Visits Authorized [id number] Authorized Auto-Generat ed Referral 01/09/2023 01/09/2024 1 1 [facility] for referral (narrative)* Diagnostic Procedure Only (Routine) - Authorized Specialty Diagnoses / Procedures Referred By Contac t Referred To Contact [facility] Diagnoses Encounter for anatomic survey Procedures OBSTETRIC ULTRASOUND WHI US PREG UTERUS AFTER 1ST TRIMEST 1 GESTATION Gunjan Blackwood MD [address] [place] [address] [facility] [place] [address] Referral ID Status Reason Start Date Expiration Date Visits Requested Visits Authorized [id number] Authorized Auto-Generat ed Referral 03/27/2023 03/26/2024 1 1 [facility] Diagnostic Procedure Only (Routine) - Authorized Specialty Diagnoses / Procedures Referred By Contac t Referred To Contact [facility] Diagnoses 23 weeks gestation of History of delivery Procedures OBSTETRIC ULTRASOUND WHI US PREG UTERUS AFTER 1ST TRIMEST 1 GESTATION Diana Kauffman APRN.CNM [address] [place] [address] [address] Referral ID Status Reason Start Date Expiration Date Visits Requested Visits Authorized [id number] Authorized Auto-Generat ed Referral 04/26/2023 04/25/2024 1 1 [facility] Summary Purpose Family History No Family History Records FoundNo Family History Records Found Advance Directives No Advanced Directives Records FoundNo Advanced Directives Records Found Health Concerns Infection Onset Date Last Indicated Resolved Time COVID-19 Rule-Out 08/02/2022 08/02/2022 Infection Onset Date Last Indicated Resolved Time COVID-19 Rule-Out 08/02/2022 08/02/2022 08/03/2022 6:12 AM EST COVID-19 Confirmed 08/02/2022 08/02/2022 Reason for Referral Specialty Diagnoses / Procedures Referred By Contac t Referred To Contact 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 Procedures CONSULT TO MEDICAL GENETICS - MEDICAL GENETICS COUNSELING EACH 30 MINUTES Quang De La Garza MD [address] [place] [address] [address] Referral ID Status Reason Start Date Expiration Date Visits Requested Visits Authorized [id number] Pending Review PCP Requested Referral Auto-Generate d Referral 3 05/23/2024 1 1 Additional Source Comments INFORMATION SOURCE (unrecogn ized section and content) DATE CREATED AUTHOR AUTHOR'S ORGANIZ ATION 09/07/2023 [facility] Source Comments (unrecognize d section and content) In the event this informatio n is protected by the Federal Confidentiality of Alcohol and Drug Abuse Patient Records regulations: The Federal rules restrict any use of the information to criminally investigate or prosecute any alcohol or drug abuse patient.[facility] event this information is protected by the Federal Confidentiality of Alcohol and Drug Abuse Patient Records regulations: The Federal rules restrict any use of the information to criminally investigate or prosecute any alcohol or drug abuse patient.[facility] the event this information is protected by the Federal Confidentiality of Alcohol and Drug Abuse Patient Records regulations: The Federal rules restrict any use of the information to criminally investigate or prosecute any alcohol or drug abuse patient.[facility] the event this information is protected by the Federal Confidentiality of Alcohol and Drug Abuse Patient Records regulations: The Federal rules restrict any use of the information to criminally investigate or prosecute any alcohol or drug abuse patient.[facility] the event this information is protected by the Federal Confidentiality of Alcohol and Drug Abuse Patient Records regulations: The Federal rules restrict any use of the information to criminally investigate or prosecute any alcohol or drug abuse patient.[facility] the event this information is protected by the Federal Confidentiality of Alcohol and Drug Abuse Patient Records regulations: The Federal rules restrict any use of the information to criminally investigate or prosecute any alcohol or drug abuse patient.[facility] the event this information is protected by the Federal Confidentiality of Alcohol and Drug Abuse Patient Records regulations: The Federal rules restrict any use of the information to criminally investigate or prosecute any alcohol or drug abuse patient.[facility] the event this information is protected by the Federal Confidentiality of Alcohol and Drug Abuse Patient Records regulations: The Federal rules restrict any use of the information to criminally investigate or prosecute any alcohol or drug abuse patient.[facility] the event this information is protected by the Federal Confidentiality of Alcohol and Drug Abuse Patient Records regulations: The Federal rules restrict any use of the information to criminally investigate or prosecute any alcohol or drug abuse patient.[facility] the event this information is protected by the Federal Confidentiality of Alcohol and Drug Abuse Patient Records regulations: The Federal rules restrict any use of the information to criminally investigate or prosecute any alcohol or drug abuse patient.[facility] the event this information is protected by the Federal Confidentiality of Alcohol and Drug Abuse Patient Records regulations: The Federal rules restrict any use of the information to criminally investigate or prosecute any alcohol or drug abuse patient.[facility] the event this information is protected by the Federal Confidentiality of Alcohol and Drug Abuse Patient Records regulations: The Federal rules restrict any use of the information to criminally investigate or prosecute any alcohol or drug abuse patient.[facility] the event this information is protected by the Federal Confidentiality of Alcohol and Drug Abuse Patient Records regulations: The Federal rules restrict any use of the information to criminally investigate or prosecute any alcohol or drug abuse patient.[facility] the event this information is protected by the Federal Confidentiality of Alcohol and Drug Abuse Patient Records regulations: The Federal rules restrict any use of the information to criminally investigate or prosecute any alcohol or drug abuse patient.[facility] the event this information is protected by the Federal Confidentiality of Alcohol and Drug Abuse Patient Records regulations: The Federal rules restrict any use of the information to criminally investigate or prosecute any alcohol or drug abuse patient.[facility] the event this information is protected by the Federal Confidentiality of Alcohol and Drug Abuse Patient Records regulations: The Federal rules restrict any use of the information to criminally investigate or prosecute any alcohol or drug abuse patient.[facility] HospitalIn the event this information is protected by the Federal Confidentiality of Alcohol and Drug Abuse Patient Records regulations: The Federal rules restrict any use of the information to criminally investigate or prosecute any alcohol or drug abuse patient.[facility] HospitalIn the event this information is protected by the Federal Confidentiality of Alcohol and Drug Abuse Patient Records regulations: The Federal rules restrict any use of the information to criminally investigate or prosecute any alcohol or drug abuse patient.[facility]In the event this information is protected by the Federal Confidentiality of Alcohol and Drug Abuse Patient Records regulations: The Federal rules restrict any use of the information to criminally investigate or prosecute any alcohol or drug abuse patient.[facility] HospitalIn the event this information is protected by the Federal Confidentiality of Alcohol and Drug Abuse Patient Records regulations: The Federal rules restrict any use of the information to criminally investigate or prosecute any alcohol or drug abuse patient.[facility] HospitalIn the event this information is protected by the Federal Confidentiality of Alcohol and Drug Abuse Patient Records regulations: The Federal rules restrict any use of the information to criminally investigate or prosecute any alcohol or drug abuse patient.[facility] HospitalIn the event this information is protected by the Federal Confidentiality of Alcohol and Drug Abuse Patient Records regulations: The Federal rules restrict any use of the information to criminally investigate or prosecute any alcohol or drug abuse patient.[facility] HospitalIn the event this information is protected by the Federal Confidentiality of Alcohol and Drug Abuse Patient Records regulations: The Federal rules restrict any use of the information to criminally investigate or prosecute any alcohol or drug abuse patient.[facility] HospitalIn the event this information is protected by the Federal Confidentiality of Alcohol and Drug Abuse Patient Records regulations: The Federal rules restrict any use of the information to criminally investigate or prosecute any alcohol or drug abuse patient.[facility] HospitalIn the event this information is protected by the Federal Confidentiality of Alcohol and Drug Abuse Patient Records regulations: The Federal rules restrict any use of the information to criminally investigate or prosecute any alcohol or drug abuse patient.[facility] HospitalIn the event this information is protected by the Federal Confidentiality of Alcohol and Drug Abuse Patient Records regulations: The Federal rules restrict any use of the information to criminally investigate or prosecute any alcohol or drug abuse patient.[facility] HospitalIn the event this information is protected by the Federal Confidentiality of Alcohol and Drug Abuse Patient Records regulations: The Federal rules restrict any use of the information to criminally investigate or prosecute any alcohol or drug abuse patient.[facility] Reason for Visit (unrecogniz ed section and content) Specialty Diagnoses / Procedures Referred By Contac t Referred To Contact [facility] Diagnoses Encounter for screening of mother Supervision of other high risk pregnancies, first trimester Procedures NUCHAL TRANSLUCENCY WHI US NUCHAL TRANSLUCENCY 1ST GESTATION Gunjan Blackwood MD [address] [place] [address] [address] Referral ID Status Reason Start Date Expiration Date V isits Requested Visits Authorized [id number] Closed Auto-Generate d Referral 01/09/2023 01/09/2024 1 1 Reason Comments Fever Fever, congestion, f atigue, bodyaches and loss of taste x 2 days-positive home COVID Reason Comments Results Reason Comments Sore Throat X 4 days Reason Comments Future Appointment Reason Comments Initial OB Visit Reason Comments Cnc Supervisor - Other risk a ssessment form Reason Onset Date Comments Care 02/06/2023 Reason Comments Received Outside Medical Records Specialty Diagnoses / Procedures Referred By Contac t Referred To Contact [facility] Diagnoses 16 weeks gestation of Supervision of high risk in second trimester Procedures OBSTETRIC ULTRASOUND WHI US PREG UTERUS AFTER 1ST TRIMEST GESTATION Gunjan Blackwood MD [address] [place] [address] [facility] [place] [address] Referral ID Status Reason Start Date Expiration Date V isits Requested Visits Authorized [id number] Closed Auto-Generate d Referral 03/06/2023 03/05/2024 1 1 Reason Comments Orders Reason Onset Date Comments Care 03/29/2023 Specialty Diagnoses / Procedures Referred By Contac t Referred To Contact [facility] Diagnoses Encounter for anatomic survey Procedures OBSTETRIC ULTRASOUND WHI US PREG UTERUS AFTER 1ST TRIMEST GESTATION Gunjan Blackwood MD [address] [place] [address] [address] Referral ID Status Reason Start Date Expiration Date V isits Requested Visits Authorized [id number] Closed Auto-Generate d Referral 03/27/2023 03/26/2024 1 1 Reason Comments Cnc Supervisor - Other 2nd ri sk assessment form submitted at 20 wks. Kate Murdock RN Reason Comments Insect Bite R inner thigh bee st ing x2 days Reason Onset Date Comments Care 04/26/2023 Reason Comments Orders Specialty Diagnoses / Procedures Referred By Contac t Referred To Contact [facility] Diagnoses 23 weeks gestation of History of delivery Procedures OBSTETRIC ULTRASOUND WHI US PREG UTERUS AFTER 1ST TRIMEST GESTATION Dinaa Kauffman, [facility] [address] [place] [address] [address] Referral ID Status Reason Start Date Expiration Date V isits Requested Visits Authorized [id number] Closed Auto-Generate d Referral 04/26/2023 04/25/2024 1 1 Reason Onset Date Comments Care 05/24/2023 Reason Comments Care Specialty Diagnoses / Procedures Referred By Contac t Referred To Contact 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 Procedures CONSULT TO MEDICAL GENETICS - MEDICAL GENETICS COUNSELING EACH 30 MINUTES Quang De La Garza MD [address] [place] [address] [address] Referral ID Status Reason Start Date Expiration Date Visits Requested Visits Authorized [id number] Pending Review PCP Requested Referral Auto-Generate d Referral 3 05/23/2024 1 1 Reason Onset Date Comments Care 06/21/2023 Reason Onset Date Comments Care 07/04/2023 Reason Onset Date Comments Care 08/01/2023 Reason Comments Question (OB Question) Care Teams (unrecognized sec tion and content) Unit Nurse Relationship Specialty Start Date End Date Nikko Zimmerman MD PCP - General Family Medicine 04/19/16 Unit Nurse Relationship Specialty Start Date End Date Nikko Zimmerman MD PCP - General Family Medicine 04/19/16 Unit Nurse Relationship Specialty Start Date End Date Nikko Zimmerman MD PCP - General Family Medicine 04/19/16 Unit Nurse Relationship Specialty Start Date End Date Nikko Zimmerman MD PCP - General Family Medicine 04/19/16 Unit Nurse Relationship Specialty Start Date End Date Nikko Zimmerman MD PCP - General Family Medicine 04/19/16 Unit Nurse Relationship Specialty Start Date End Date Nikko Zimmerman MD PCP - General Family Medicine 04/19/16 Unit Nurse Relationship Specialty Start Date End Date Nikko Zimmerman MD PCP - General Family Medicine 04/19/16 Unit Nurse Relationship Specialty Start Date End Date Nikko Zimmerman MD PCP - General Family Medicine 04/19/16 Unit Nurse Relationship Specialty Start Date End Date Nikko Zimmerman MD PCP - General Family Medicine 04/19/16 Unit Nurse Relationship Specialty Start Date End Date Nikko Zimmerman MD PCP - General Family Medicine 04/19/16 Unit Nurse Relationship Specialty Start Date End Date Nikko Zimmerman MD PCP - General Family Medicine 04/19/16 Unit Nurse Relationship Specialty Start Date End Date Nikko Zimmerman MD PCP - General Family Medicine 04/19/16 Unit Nurse Relationship Specialty Start Date End Date Nikko Zimmerman MD PCP - General Family Medicine 04/19/16 Unit Nurse Relationship Specialty Start Date End Date Nikko Zimmerman MD PCP - General Family Medicine 04/19/16 Unit Nurse Relationship Specialty Start Date End Date Nikko Zimmerman MD PCP - General Family Medicine 04/19/16 Unit Nurse Relationship Specialty Start Date End Date Nikko Zimmerman MD PCP - General Family Medicine 04/19/16 Unit Nurse Relationship Specialty Start Date End Date Nikko Zimmerman MD PCP - General Family Medicine 04/19/16 Unit Nurse Relationship Specialty Start Date End Date Nikko Zimmerman MD PCP - General Family Medicine 04/19/16 Unit Nurse Relationship Specialty Start Date End Date Nikko Zimmerman MD PCP - General Family Medicine 04/19/16 Unit Nurse Relationship Specialty Start Date End Date Nikko Zimmerman MD PCP - General Family Medicine 04/19/16 Unit Nurse Relationship Specialty Start Date End Date Nikko Zimmerman MD PCP - General Family Medicine 04/19/16 Unit Nurse Relationship Specialty Start Date End Date Nikko Zimmerman MD PCP - General Family Medicine 04/19/16 Unit Nurse Relationship Specialty Start Date End Date Nikko Zimmerman MD PCP - General Family Medicine 04/19/16 Unit Nurse Relationship Specialty Start Date End Date Nikko Zimmerman MD PCP - General Family Medicine 04/19/16 FOR RECORDS PERTAINING TO PATIENTS WHO ARE OR HAVE BEEN ENROLLED IN A CHEMICAL DEPENDENCY/SUBSTANCEABUSE PROGRAM, SOME INFORMATION MAY BE OMITTED. This clinical summary was aggregated from multiple sources. Caution should be exercised in using it in the provision of clinical care. This summary normalizes information from multiple sources, and as a consequence, information in this document may materially change the coding, format and clinical context of patient data. In addition, data may be omitted in some cases. CLINICAL DECISIONS SHOULD BE BASED ON THE PRIMARY CLINICAL RECORDS. [facility] [employer] [facility]. provides no warranty or guarantee of the accuracy or completeness of information in this document.
--- NOTE | 2023-09-15 22:59 | RAD_ITS ---
STUDY: X-RAY CHEST REASON FOR EXAM: Female, 22 years old. chest pain TECHNIQUE: Single AP portable view of the chest. COMPARISON: 02/02/2014. FINDINGS: The lungs are clear and expanded. There is no demonstrated pleural abnormality. Normal size heart. Normal mediastinum and vesna. Normal visualized pulmonary arteries. Normal visualized aortic arch and descending thoracic aorta. Normal visualized thoracic spine. Normal visualized ribs, clavicles, and shoulders. There is no demonstrated abnormality of the visualized soft tissue structures of the upper abdomen. RAD/Chest 1 View (Portable) IMPRESSION: Normal x-ray examination of the chest. Electronically Signed: Wen Earl MD at 23:30 EST ,
--- NOTE | 2023-09-15 23:03 | EDS_ITS ---
HPI HPI - GI History of Present Illness Chief Complaint: Chest Other Narrative Narrative: 22-year-old female presenting with epigastric pain. She states it felt heavy. Last a few minutes. It went away and then came back. She states this was about an hour after eating pizza tonight. Patient reports she has had several episodes of this over the last few weeks. She cannot recall what she ate prior to these events but states all symptoms resolved fairly quickly and there was no sequela. Patient states that other than these episodes she is been eating and drinking well. She making normal urine and stool. Patient is breast-feeding she delivered about 6 weeks ago. She denies any sharp pleuritic chest pain. No fevers or chills. No cough. No diarrhea or constipation. Tonight she felt as if she might vomit but the last several episodes she did not. [facility] Medical History Cystic fibrosis carrier Genital herpes affecting History of pre-term labor depression Vaginal delivery Home Medications vit no.95-ferrous fumarate 28 mg-folic acid 800 mcg tablet () 1 tab PO DAILY 09/15/23 [History Last Taken Unknown] Allergy/AdvReac Type Severity Reaction Status Date / Time sulfamethoxazole Allergy Rash Verified 09/15/23 22:16 [From Bactrim] trimethoprim [From Bactrim] Allergy Rash Verified 09/15/23 22:16 Social History Smoking Status: Former smoker ROS ROS ED Constitutional Constitutional ED: Denies chills, fever(s) or sweats Eyes Eyes: Denies blurry vision or change in vision ENT ENT ED: Denies ear pain or sore throat Cardiovascular Cardiovascular: Denies chest pain, palpitations or racing heartbeat Respiratory/Chest Respiratory/Chest: Denies cough, dyspnea or sputum Gastrointestinal Gastrointestinal: Reports abdominal pain and nausea; Denies constipation, diarrhea or vomiting Genitourinary Genitourinary ED: Denies dysuria, hematuria or urinary frequency Musculoskeletal Musculoskeletal: Denies arthralgias, myalgias or neck pain Integumentary Denies abscess, Abrasions or rash Neurologic Neurologic: Denies headache(s), paresthesias or weakness Psychiatric Psychiatric: Denies anxiety, depression, suicidal ideation or suicidal thoughts Endocrine Endocrinology: Denies polydipsia or polyuria EXAM Physical Exam Const Vital Signs: 09/15/23 22:14 09/15/23 23:04 09/16/23 00:14 Temperature 98.1 F Temperature Source Temporal Pulse Rate 89 73 Respiratory Rate 16 20 H Blood Pressure 133/64 H 113/66 Blood Pressure Mean 87 81 Pulse Ox 100 98 Oxygen Delivery Method Room Air Room Air Room Air Positive well nourished General Appearance ED: NAD; Negative for pallor HEENT Reports moist mucous membranes normocephalic and atraumatic Eyes PERRL and EOMs intact bilaterally General Eye ED: Negative for pale conjunctiva Resp normal respiratory effort and clear to auscultation bilaterally Auscultation: Negative for rales, rhonchi or wheezes Cardio regular rate and regular rhythm GI non-tender and non-distended Palpation: soft Neuro CN's II-XII intact bilaterally Sensorium / Orientation: alert Motor Exam: strength 5/5 throughout Psych mental status grossly normal Skin General Skin Exam: Negative for jaundice or pallor MDM MDM MDM Narrative Medical decision making narrative: Patient presenting with epigastric pain after eating pizza. Differential includes pneumonia, ACS, gastritis, GERD, cholecystitis, cholelithiasis, dehydration, anemia, electrolyte abnormalities,. CBC was obtained to assess white blood cell count, hemoglobin complaints. BMP to assess renal function, electrolytes, glucose. Liver function panel to assess liver enzymes. Lipase to assess for pancreatitis. Chest x-ray to rule out pneumonia. EKG and high- sensitivity troponin rule ischemia/dysrhythmia. Low suspicion for PE as patient does not have any chest pain or sharp pleuritic pain although she does have epigastric pain which started after pizza. I feel this is more of a GI issue. Currently declines any analgesia. CBC shows slight leukocytosis at 12.9. Hemoglobin 12.3. Platelet 333. Renal function electrolytes within normal limits. LFTs showed elevation in AST, ALT, alkaline phosphatase. Bilirubin is normal. High-sensitivity troponin is 5. EKG on my interpretation shows a sinus rhythm at 83 bpm without sign of ischemic change or ectopy. Discussed patient's findings with her and we opted to do a CT scan of the abdomen pelvis which did not show anything acute per the radiology read other than some right-sided colitis. However given her elevated liver enzymes I spoke with general surgery (Dr. Mata) who came to see the patient. He recommended admission for u ltrasound in the morning and serial liver enzymes. Discussed with the patient was amenable to staying. Patient admitted in stable condition. Impression: 1. Abdominal pain 2. Elevated liver enzymes Lab Data Attestation: I reviewed the patient's lab results. Labs: Laboratory Results - last 24 hr 09/15/23 22:50 WBC 12.9 H RBC 3.91 L Hgb 12.3 Hct 37.9 MCV 96.9 MCH 31.5 MCHC 32.5 RDW Std Deviation 43.8 RDW Coeff of Megha 12.2 Plt Count 333 MPV 10.2 Immature Gran % (Auto) 0.300 Neut % (Auto) 74.3 H Lymph % (Auto) 16.4 L [place] % (Auto) 7.6 Eos % (Auto) 1.2 Baso % (Auto) 0.2 Absolute Neuts (auto) 9.6 H Absolute Lymphs (auto) 2.11 Nucleated RBC % 0 Sodium 142 Potassium 3.8 Chloride 112 H Carbon Dioxide 26.0 Anion Gap 4 L BUN 17 Creatinine 0.78 Estim Creat Clear Calc 102.28 Est GFR (MDRD) Af Amer 117 Est GFR (MDRD) Non-Af 97 BUN/Creatinine Ratio 21.9 H Glucose 103 Calcium 9.0 Total Bilirubin 0.40 Direct Bilirubin 0.21 AST 190 H ALT 75 H Alkaline Phosphatase 257 H Troponin I High Sens 5 Total Protein 6.8 Albumin 3.6 Globulin 3.2 Lipase 53 Radiography Diagnostic Testing: Clinical Impression(s) from Imaging Studies Chest X-Ray 09/15/23 22:59 IMPRESSION: Normal x-ray examination of the chest. Electronically Signed: Wen Earl MD at 23:30 EST Reading Location ID and State: [id number] / [place] , Service support , Abdomen/Pelvis CT 09/15/23 23:53 IMPRESSION: Constipation with signs of mild right-sided colitis. No acute appendicitis or bowel obstruction. Unremarkable abdominal viscera. Electronically Signed: Wen Earl MD at 1:17 EST Reading Location ID and State: [id number] / [place] , Service support , Discharge Plan Triage Chief Complaint: Chest Other ED Provider: Derek Lopez Dx/Rx/DC Orders Primary Care Provider: Care Physician,No Primary
[2023-09-15 23:10] LABS: Absolute Lymphocyte Count 2.11 X10^3/uL (0.83-4.51); Absolute Neutrophil Count 9.6 X10^3/uL (2.0-7.7); Basophil# 0.03 X10^3/uL; Basophil% 0.2 % (0-1); Eosinophil# 0.16 X10^3/uL; Eosinophils% 1.2 % (0-5); Hematocrit 37.9 % (37-47); Hemoglobin 12.3 g/dL (12.0-15.0); Lymphocyte # 2.11 X10^3/ul (0.83-4.51); Lymphocyte % 16.4 % (19-41); Mean Corp Hgb Conc 32.5 g/dL (32-36); Mean Corpuscular Hgb 31.5 pg (27.0-32.0); Mean Corpuscular Volume 96.9 fL (81-99); Mean Platelet Vol. 10.2 fl (6.2-12.0); Monocyte# 0.98 X10^3/uL; Monocyte% 7.6 % (0-10); NRBC Flagged by Analyzer 0 % (0-5); Neutrophil # 9.56 X10^3/uL (2.7-7.7); Neutrophil % 74.3 % (47-70); Platelet Count 333 K/mm3 (150-450); RBC Distribution Width CV 12.2 % (11.6-14.6); RBC Distribution Width SD 43.8 fl (35.1-43.9); Red Blood Count 3.91 M/mm3 (4.2-5.4); White Blood Count 12.9 K/mm3 (4.4-11.0)
[2023-09-15 23:25] LABS: AST(SGOT) 190 U/L (15-37); Alanine Aminotransfer ALT/SGPT 75 U/L (13-56); Albumin, Serum 3.6 g/dL (3.2-5.0); Alkaline Phosphatase 257 U/L (45-117); Anion Gap 4 (5-15); BUN 17 mg/dL (7-18); BUN/Creat Ratio 21.9 RATIO (10-20); Bilirubin, Direct 0.21 mg/dL (0.00-0.30); Chloride 112 mmol/L (98-107); Creatinine, Serum 0.78 mg/dL (0.55-1.02); EST Glomerular Filtration Rate 97 mL/min (>60); Est Glom Filt Rate - Afr Amer 117 mL/min (>60); Estimated Creatinine Clearance 102.28 ml/min; Globulin 3.2 g/dL (2.2-4.2); Glucose 103 mg/dL (74-106); Lipase 53 U/L (13-75); Potassium 3.8 mmol/L (3.5-5.1); Protein, Total 6.8 g/dL (6.4-8.2); Sodium Level 142 mmol/L (136-145); Troponin-I HS 5 pg/mL (3.0-54.0)
--- NOTE | 2023-09-15 23:53 | CT_ITS ---
STUDY: CT ABDOMEN AND PELVIS WITH CONTRAST REASON FOR EXAM: Female, 22 years old. abdominal pain RADIATION DOSAGE (If Supplied By Facility): CTDIvol = ( 14.95 ) mGy, DLP = ( 819.59 ) mGycm TECHNIQUE: Transaxial images were obtained from the dome of the diaphragm to the symphysis pubis without oral contrast. IV 100mL Isovue-370 was administered. Sagittal and coronal images were reconstructed. Individualized dose optimization techniques were used for this CT. COMPARISON: 02/23/2023. FINDINGS: Mild left lower lobe atelectasis. The visualized portions of the heart are within normal limits. Normal liver. Normal gallbladder and extrahepatic biliary system. Normal spleen. Normal pancreas. Normal bilateral adrenal glands. Normal right kidney. Normal left kidney. Normal visualized stomach. Normal small intestine. Increased fecal debris within the colon consistent with constipation. There is mild thickening of the wall throughout the right colon and cecum compatible with right-sided colitis. The appendix is visualized and appears normal. Normal abdominal aorta. Normal inferior vena cava. Normal retroperitoneum. Normal urinary bladder. Anteverted uterus. Normal abdominal wall. Normal osseous structures. CT/Abdomen/Pelvis W IV Cont ONLY IMPRESSION: Constipation with signs of mild right-sided colitis. No acute appendicitis or bowel obstruction. Unremarkable abdominal viscera. Electronically Signed: Wen Earl MD at 1:17 EST ,
[2023-09-16] VITALS (11 sets, daily range): BP systolic 103–125; BP diastolic 59–77; PULSE 63–88; RESP 16–20; TEMP 35.8–37.3; O2SAT 96–100; BMI 30.2
--- NOTE | 2023-09-16 03:18 | HP.PCM.SX_ITS ---
HPI - General General Date of Admission: 09/16/23 HPI Narrative COLLIN HWANG, is a 22 F who presents with epigastric pain. She recently gave in July. She says that over the last 3 weeks she has been having this episodic pain about once a week in her epigastric region. She says usually it goes away. She said it hurt badly after eating pizza today and then it went away and then it came back then it went away again. Currently she is not having much pain. She does states she is having a little bit of tenderness in the right upper quadrant and epigastric region. Patient denies nausea or vomiting. [facility] Medical History Cystic fibrosis carrier Genital herpes affecting History of pre-term labor depression Vaginal delivery Home Medications vit no.95-ferrous fumarate 28 mg-folic acid 800 mcg tablet () 1 tab PO DAILY 09/15/23 [History Last Taken Unknown] Allergy/AdvReac Type Severity Reaction Status Date / Time sulfamethoxazole Allergy Rash Verified 09/15/23 22:16 [From Bactrim] trimethoprim [From Bactrim] Allergy Rash Verified 09/15/23 22:16 Social History Smoking Status: Former smoker ROS Constitutional Constitutional: Denies anorexia, chills or fatigue Eyes Eyes: Denies blurry vision ENT HEENT: Denies abnormal hearing Cardiovascular Cardiovascular: Denies chest pain Respiratory/Chest Respiratory/Chest: Denies cough or dyspnea Gastrointestinal Gastrointestinal: Reports abdominal pain; Denies coffee ground emesis, nausea or vomiting Genitourinary Genitourinary: Denies difficulty urinating Musculoskeletal Musculoskeletal: Denies abnormal gait Integumentary Integumentary: Denies jaundice Neurologic Neurologic: Denies dizziness Psychiatric Psychiatric: Denies anxiety Endocrine Endocrinology: Denies heat intolerance Hematologic/Lymphatic Hematologic/Lymphatic: Denies easy bleeding Vital Signs Vital Signs Vital Signs: 09/15/23 22:14 09/15/23 23:04 09/16/23 00:14 Temperature 98.1 F Temperature Source Temporal Pulse Rate 89 73 Respiratory Rate 16 20 H Blood Pressure 133/64 H 113/66 Blood Pressure Mean 87 81 Pulse Ox 100 98 Oxygen Delivery Method Room Air Room Air Room Air Weight Weight: 163 lb Body Mass Index (BMI) 30.8 Physical Exam Const oriented x3 and no apparent distress Resp normal respiratory effort Cardio regular rate and regular rhythm GI soft to palpation Palpation: tender RUQ Extremity normal to inspection Results Lab / Micro Data 09/15/23 22:50 09/15/23 22:50 Labs: Laboratory Results - last 24 hr 09/15/23 22:50: WBC 12.9 H, RBC 3.91 L, Hgb 12.3, Hct 37.9, MCV 96.9, MCH 31.5, MCHC 32.5, RDW Std Deviation 43.8, RDW Coeff of Megha 12.2, Plt Count 333, MPV 10.2, Immature Gran % (Auto) 0.300, Neut % (Auto) 74.3 H, Lymph % (Auto) 16.4 L, [place] % (Auto) 7.6, Eos % (Auto) 1.2, Baso % (Auto) 0.2, Absolute Neuts (auto) 9.6 H, Absolute Lymphs (auto) 2.11, Nucleated RBC % 0, Sodium 142, Potassium 3.8, Chloride 112 H, Carbon Dioxide 26.0, Anion Gap 4 L, BUN 17, Creatinine 0.78, Estim Creat Clear Calc 102.28, Est GFR (MDRD) Af Amer 117, Est GFR (MDRD) Non-Af 97, BUN/Creatinine Ratio 21.9 H, Glucose 103, Calcium 9.0, Total Bilirubin 0.40, Direct Bilirubin 0.21, AST 190 H, ALT 75 H, Alkaline Phosphatase 257 H, Troponin I High Sens 5, Total Protein 6.8, Albumin 3.6, Globulin 3.2, Lipase 53 Imaging Radiology Impression Chest X-Ray 09/15/23 22:59 IMPRESSION: Normal x-ray examination of the chest. Electronically Signed: Wen Earl MD at 23:30 EST , Abdomen/Pelvis CT 09/15/23 23:53 IMPRESSION: Constipation with signs of mild right-sided colitis. No acute appendicitis or bowel obstruction. Unremarkable abdominal viscera. Electronically Signed: Wen Earl MD at 1:17 EST , Assessment & Plan Assessment/Plan (1) Elevated liver enzymes: PLAN: The patient presented with epigastric pain and she says this is been going on for the last 3 weeks. She says usually is episodic. Currently she is not having much pain. I did review her CT scan which does show some dilated biliary radicles. Her LFTs are also slightly elevated. I am unsure if she has a stone stuck or if she is passing small stones. I will admit her for observation and recheck CMP later today. I will also order an ultrasound later today. If her LFTs increase she will likely need ERCP and cholecystectomy. If the ultrasound does not show any gallstones further workup will be done. I will admit her on IV fluids and antibiotics and pain control. Jose Mata MD Pager: [facility] [address] [place] [address] [address] [place] [address] Office:
--- OUTSIDE RECORDS SUMMARY | 2023-09-16 03:25 | XMS RPT_ITS | CCD ---
Author Name Unknown Address [address] [facility] [address] [place] [address] Organization [facility] Care Team Providers Care Clinical Research Director Name Role Phone Elsie WAGGONER, Nikko Howard [...] Unavailab WILLY Mendoza Attending Unavailable ELSIE, NIKKO [facility] Unavailab QUANG Gimenez Referring Unavailable ELSIE, NIKKO [facility] Unavailab nico BLACKWOOD, GUNJAN L Attending Unavailable ELSIE, NIKKO [facility] Unavailab nico BLACKWOOD, GUNJAN L Attending Unavailable JAISON, GUNJAN L Referring Unavailable COLLIN MUIR Attending Unavailable ELSIE, NIKKO [facility] Unavailab DIANA Samuel Attending Unavailable ELSEI, NIKKO [facility] Unavailab le ELSIE, NIKKO ASH[facility] Unavailab le ELSIE, NIKKO [facility] Unavailab nico BLACKWOOD, GUNJAN L Referring Unavailable [facility]KKO [facility] BLACKWOOD, GUNJAN L Referring Unavailable Allergies Allergy Classification Reported Allergen(s) Allergy Type Date of Onset Reaction(s) Facility (20 sources) Sulfamethoxazole / Trimethoprim; Translations: [SULFAMETHOXAZOLE-TRI METHOPRIM] Drug Allergy 6 Unknown [facility] Medications Current Medications Medication Drug Class(es) [...] 82.74 kg Leena Browne APRN.CNP Work Phone: [facility] 08-01-2023 10:28-0500 Diastolic blood pressure 62 mm[Hg] Leena Browne APRN.HATCHERY MANAGER Work Phone: [facility] 08-01-2023 10:28-0500 Systolic blood pressure 102 mm[Hg] Leena Browne APRN.CNP Work Phone: [facility] 07-04-2023 11:02-0500 Body weight 81.74 kg Gunjan Blackwood MD Work Phone: [facility] 07-04-2023 11:02-0500 Diastolic blood pressure 60 mm[Hg] Gunjan Blackwood MD Work Phone: [facility] 07-04-2023 11:02-0500 Systolic blood pressure 100 mm[Hg] Gunjan Blackwood MD Work Phone: [facility] 06-21-2023 11:05-0500 Body weight 80.74 kg Diana Gramajoantolin SUPERINTENDENT HOUSE.CNM Work Phone: [facility] 06-21-2023 11:05-0500 Diastolic blood pressure 62 mm[Hg] Diana Plotts SUPERINTENDENT HOUSE.CNM Work Phone: [facility] 06-21-2023 11:05-0500 Systolic blood pressure 114 mm[Hg] Diana Plotts SUPERINTENDENT HOUSE.CNM Work Phone: [facility] 05-24-2023 09:31-0400 Body weight 79.56 kg Quang De La Garza MD Work Phone: [facility] 05-24-2023 09:31-0400 Diastolic blood pressure 60 mm[Hg] Quang De La Garza MD Work Phone: [facility] 05-24-2023 09:31-0400 Systolic blood pressure 100 mm[Hg] Quang De La Garza MD Work Phone: [facility] 04-26-2023 10:09-0400 Body weight 77.38 kg Diana Plotantolin SUPERINTENDENT HOUSE.CNM Work Phone: [facility] 04-26-2023 10:09-0400 Diastolic blood pressure 60 mm[Hg] Diana Plotantolin SUPERINTENDENT HOUSE.CNM Work Phone: [facility] 04-26-2023 10:09-0400 Systolic blood pressure 104 mm[Hg] Diana Plotantolin SUPERINTENDENT HOUSE.CNM Work Phone: [facility] 04-23-2023 17:44-0400 Body temperature 97.5 [degF] Angel Rapp SUPERINTENDENT HOUSE.HATCHERY MANAGER Work Phone: [facility] 04-23-2023 17:44-0400 Body weight 76.93 kg Angel Rapp SUPERINTENDENT HOUSE.HATCHERY MANAGER Work Phone: [facility] 04-23-2023 17:44-0400 Diastolic blood pressure 66 mm[Hg] Angel Pendlebury SUPERINTENDENT HOUSE.HATCHERY MANAGER Work Phone: [facility] 04-23-2023 17:44-0400 Heart rate 66 /min Angel Rapp SUPERINTENDENT HOUSE.HATCHERY MANAGER Work Phone: [facility] 04-23-2023 17:44-0400 Respiratory rate 18 /min [facility] SUPERINTENDENT HOUSE.HATCHERY MANAGER Work Phone: [facility] 04-23-2023 17:44-0400 SaO2% (BldA) [Mass fraction] 99 % [facility] SUPERINTENDENT HOUSE.HATCHERY MANAGER Work Phone: [facility] 04-23-2023 17:44-0400 Systolic blood pressure 104 mm[Hg] Angel Rapp SUPERINTENDENT HOUSE.HATCHERY MANAGER Work Phone: [facility] 03-29-2023 10:05-0400 Body weight 74.39 kg Diana Kauffman SUPERINTENDENT HOUSE.CNM Work Phone: [facility] 03-29-2023 10:05-0400 Diastolic blood pressure 66 mm[Hg] Diana Plotts SUPERINTENDENT HOUSE.CNM Work Phone: [facility] 03-29-2023 10:05-0400 Systolic blood pressure 108 mm[Hg] Diana Plotts SUPERINTENDENT HOUSE.CNM Work Phone: [facility] 02-06-2023 10:17-0400 Body weight 72.58 kg Angélica Lima MD Work Phone: [facility] 02-06-2023 10:17-0400 Diastolic blood pressure 62 mm[Hg] Angélica Lima MD Work Phone: [facility] 02-06-2023 10:17-0400 Systolic blood pressure 92 mm[Hg] Angélica Lima MD Work Phone: [facility] 02-06-2023 09:43-0400 Body height 154.9 cm Nicolás Willis MD Work Phone: [facility] 02-06-2023 09:43-0400 Body weight 72.58 kg Nicolás Willis MD Work Phone: [facility] 01-09-2023 13:12-0400 Body height 154.9 cm Gunjan Blackwood MD Work Phone: [facility] 01-09-2023 13:12-0400 Body weight 72.58 kg Gunjan Blackwood MD Work Phone: [facility] 01-09-2023 13:12-0400 Diastolic blood pressure 66 mm[Hg] Gunjan Blackwood MD Work Phone: [facility] 01-09-2023 13:12-0400 Systolic blood pressure 108 mm[Hg] Gunjan Blackwood MD Work Phone: [facility] 09-30-2022 11:52-0500 Body temperature 98.1 [degF] Donny Madden SUPERINTENDENT HOUSE.HATCHERY MANAGER Work Phone: [facility] 09-30-2022 11:52-0500 Body weight 75.3 kg Donny Madden SUPERINTENDENT HOUSE.HATCHERY MANAGER Work Phone: [facility] 09-30-2022 11:52-0500 Diastolic blood pressure 76 mm[Hg] Donny Madden SUPERINTENDENT HOUSE.HATCHERY MANAGER Work Phone: [facility] 09-30-2022 11:52-0500 Heart rate 75 /min Donny Madden SUPERINTENDENT HOUSE.HATCHERY MANAGER Work Phone: [facility] 09-30-2022 11:52-0500 Respiratory rate 16 /min Donny Madden SUPERINTENDENT HOUSE.HATCHERY MANAGER Work Phone: [facility] 09-30-2022 11:52-0500 SaO2% (BldA) [Mass fraction] 98 % Donny Madden SUPERINTENDENT HOUSE.HATCHERY MANAGER Work Phone: [facility] 09-30-2022 11:52-0500 Systolic blood pressure 112 mm[Hg] Donny Madden SUPERINTENDENT HOUSE.HATCHERY MANAGER Work Phone: [facility] 08-02-2022 18:09-0500 Body temperature 100.2 [degF] Pratibha Amaro SUPERINTENDENT HOUSE.HATCHERY MANAGER Work Phone: [facility] 08-02-2022 18:09-0500 Body weight 76.02 kg Pratibha Praisler-Johnathon SUPERINTENDENT HOUSE.HATCHERY MANAGER Work Phone: [facility] 08-02-2022 18:09-0500 Diastolic blood pressure 80 mm[Hg] Pratibha Praisler-Wood SUPERINTENDENT HOUSE.HATCHERY MANAGER Work Phone: [facility] 08-02-2022 18:09-0500 Heart rate 95 /min Pratibha Praisler-Wood SUPERINTENDENT HOUSE.HATCHERY MANAGER Work Phone: [facility] 08-02-2022 18:09-0500 Respiratory rate 18 /min Pratibha Praisler-Wood SUPERINTENDENT HOUSE.HATCHERY MANAGER Work Phone: [facility] 08-02-2022 18:09-0500 SaO2% (BldA) [Mass fraction] 98 % Pratibha Ospinaisler-Wood SUPERINTENDENT HOUSE.HATCHERY MANAGER Work Phone: [facility] 08-02-2022 18:09-0500 Systolic blood pressure 122 mm[Hg] Pratibha Praisler-Wood SUPERINTENDENT HOUSE.HATCHERY MANAGER Work Phone: [facility] Encounters Encounter Date Encounter Type Care Provider Facility Start: 09-06-2023 End: 09-06-2023 ambulatory [facility] Facility:[facility] Start: 08-01-2023 Telephone encounter Karen Hudson MD Work Phone: OB/Gynecology Procedures Date Procedure Procedure Detail Performing Clinician Start: 08-01-2023 URINE OB DIP B/O Leena Browne SUPERINTENDENT HOUSE.HATCHERY MANAGER Work Phone: Start: 07-04-2023 RSV VACCINE, BIVALEN T (ABRYSVO) Gunjan Blackwood MD Work Phone: Start: 07-04-2023 URINE OB DIP B/O Danya Blackwood MD Work Phone: Start: 06-21-2023 URINE OB DIP B/O Kole Kauffman SUPERINTENDENT HOUSE.CNM Work Phone: Start: 05-24-2023 Antibody screen TULIO KAUFFMAN Plan of Treatment Date Care Activity Detail Author Start: 05-24-2033 Urine microalbumin profile [facility] Start: 01-09-2026 PAP TESTING PAP TESTING [facility] Start: 01-09-2026 Screening for malignant neoplasm of cervix Pap Testing [facility] Start: 01-10-2024 CHLAMYDIA SCREENING (18-24) CHLAMYDIA SCREENING (18-24) [facility] Start: 01-10-2024 GC (GONORRHEA) SCREENING (18-24) GC (GONORRHEA) SCREENING (18-24) [facility] Start: 05-24-2023 End: 07-24-2023 GEST GLUC GARTH, 3-HR, 100 GM, FASTING GEST GLUC GARTH, 3-HR, 100 GM, FASTING Lab Routine Abnormal glucose complicating Expected: 05/24/2023, Expires: 07/24/2023 [facility] Work Phone: Immunizations Immunization Date Immunization Notes Care Provider [facility] 07-04-2023 respiratory syncytia l virus (RSV) vaccine, bivalent (ABRYSVO) Gunjan Blackwood MD Work Phone: [facility] 05-24-2023 tetanus toxoid, redu crystal diphtheria toxoid, and acellular pertussis vaccine, adsorbed Quang De La Garza MD Work Phone: [facility] 05-20-2004 measles, mumps and rubella virus vaccine Gunjan Blackwood MD Work Phone: [facility] 01-18-2004 diphtheria, tetanus toxoids and acellular pertussis vaccine Gunjan Blackwood MD Work Phone: [facility] 01-18-2004 measles, mumps and rubella virus vaccine Gunjan Blackwood MD Work Phone: [facility] 01-18-2004 poliovirus vaccine, inactivated Gunjan Blackwood MD Work Phone: [facility] 03-10-2003 diphtheria, tetanus toxoids and acellular pertussis vaccine, unspecified formulation Gunjan Blackwood MD Work Phone: [facility] 03-10-2003 hepatitis B vaccine, pediatric or pediatric/adolescent dosage Gunjan Blackwood MD Work Phone: [facility] 03-10-2003 poliovirus vaccine, unspecified formulation Gunjan Blackwood MD Work Phone: [facility] 06-24-1999 diphtheria, tetanus toxoids and acellular pertussis vaccine, unspecified formulation Gunjan Blackwood MD Work Phone: [facility] 06-24-1999 haemophilus influenz ae type b vaccine, conjugate unspecified formulation Gunjan Blackwood MD Work Phone: [facility] 06-24-1999 poliovirus vaccine, unspecified formulation Gunjan Blackwood MD Work Phone: [facility] 02-16-1999 diphtheria, tetanus toxoids and acellular pertussis vaccine, unspecified formulation Gunjan Blackwood MD Work Phone: [facility] 02-16-1999 haemophilus influenz ae type b vaccine, conjugate unspecified formulation Gunjan Blackwood MD Work Phone: [facility] 02-16-1999 hepatitis B vaccine, pediatric or pediatric/adolescent dosage Gunjan Blackwood MD Work Phone: [facility] 02-16-1999 poliovirus vaccine, unspecified formulation Gunjan Blackwood MD Work Phone: [facility] 1998 hepatitis B vaccine, pediatric or pediatric/adolescent dosage Gunjan Blackwood MD Work Phone: [facility] Payers Date Payer Category Payer Medicaid [id number] 2022 Medicaid [id number] 2019 Medicaid [id number] Social History Date Type Detail Facility Start: 08-02-2022 [facility] Start: 08-02-2022 End: 01-04-2023 Tobacco use and exposure Smokeless tobacco non-user [facility] Start: 08-02-2022 End: 08-01-2023 Alcohol intake Ex-drinker (finding) [facility] Start: 08-02-2022 [facility] Start: 2000 Sex Assigned At Not on file [facility] Start: 01-04-2023 Tobacco smoking stat us NHIS Ex-smoker [facility] Work Phone: End: 12-13-2022 History of tobacco use Current smoker [facility] Work Phone: End: 12-13-2022 History of tobacco use Cigarette Smoker [facility] Work Phone: Start: 01-04-2023 Education 13 [facility] Start: 11-27-2022 [facility] Start: 07-21-2020 End: 02-06-2023 History of Social function [facility] Start: 07-21-2020 End: 02-06-2023 Tobacco use panel [facility] National Score (1-10 0), lower number is lower risk Not on file [facility] Clinical Notes 06-22-2021 to 09-06-2023 Telephone Encounter - María Baker LPN - 08/01/2023 3:31 PM ESTTelephone Encounter - Marguerite Saucedo RN - 08/01/2023 3:22 PM ESTPatient InstructionsPatient InstructionsPatient Instructions Note Date & Type Note Facility 09-06-2023 Note HNO ID: [id number] Author: ANGÉLICA LIMA MD Service: ? Author Type: Physician Type: Progress Notes Filed: 09/06/2023 10:53 Note Text: VISIT Collin Hwang is a 22 year old year old here for visit. Delivery Summary: ROS/ Recovery: Feeding: Breast feeding problems: None Menses since delivery: has not resumed Menstrual pattern prior to : Regular periods [place] since delivery: Not resumed Depression: denies symptoms [...] external genitalia normal, normal Bartholin's glands, urethra, Sarah Ann's glands, no vulvar lesions, no cervical lesions, [...] for insertion of IUD Angélica Lima MD [facility] 08-07-2023 Note HNO ID: [id number] Author: Toshia Cha RN Service: ? Author Type: Registered Nurse Type: Progress Notes Filed: 08/07/2023 9:44 AM Note Text: Patient delivered via vacuum assisted vaginal delivery 08/04/[address] Gunjan Blackwood MD. [facility] 08-01-2023 Miscellaneous Notes Formattin g of [...] Danni Wan RN documented in this encounter [facility] 08-01-2023 Miscellaneous Notes Formattin g of [...] Leena Browne APRN.ROGERS documented in this encounter [facility] 08-01-2023 Instructions s Sophia Ho - 08/01/2023 10:23 AM EST SEQUENTIAL SCREENINGS The [facility] offers sequential screenings for women who [...] It will require an appointment with our geoscience technician. This is not an ultrasound performed [...] the above symptoms, contact our office at [phone] and ask to speak with a nurse. After hours, you can call doctors registry at [phone] OR call [facility] at [phone] and ask to have the doctor bus transportation manager paged. If you consider this an emergency, dial or go to your nearest emergency department. NEED HELP? Are you dealing with a violent or abusive relationship? Are you a victim of rape or sexual assult? Call [facility] ([place]) 24 hour Crisis Hotline: 172.467.5949 or 195-574-3045. MANUAL Your Guide to a Healthy manual is now on-line. Visit [email or web address] [email or web address] to download your free copy documented in this encounter [facility] 07-04-2023 Miscellaneous Notes Formattin g of [...] Gunjan Blackwood M.D. documented in this encounter [facility] 07-04-2023 Instructions Natalie Orona MA - 07/04/2023 10:58 AM EST SEQUENTIAL SCREENINGS The [facility] offers sequential screenings for women who [...] It will require an appointment with our geoscience technician. This is not an ultrasound performed [...] the above symptoms, contact our office at [phone] and ask to speak with a nurse. After hours, you can call doctors registry at [phone] OR call [facility] at [phone] and ask to have the doctor bus transportation manager paged. If you consider this an emergency, dial 9--2 or go to your nearest emergency department. NEED HELP? Are you dealing with a violent or abusive relationship? Are you a victim of rape or sexual assult? Call [facility] ([place]) 24 hour Crisis Hotline: 127.636.9850 or 780-939-2566. MANUAL Your Guide to a Healthy manual is now on-line. Visit [email or web address] [email or web address] to download your free copy documented in this encounter [facility] 06-21-2023 Miscellaneous Notes Formattin g of [...] Diana Kauffman APRN.CNM documented in this encounter [facility] 06-21-2023 Mauri Allen Cma 06/21/2023 11:02 AM EST SEQUENTIAL SCREENINGS The [facility] offers sequential screenings for women who [...] It will require an appointment with our geoscience technician. This is not an ultrasound performed [...] the above symptoms, contact our office at [phone] and ask to speak with a nurse. After hours, you can call doctors registry at [phone] OR call [facility] at [phone] and ask to have the doctor bus transportation manager paged. If you consider this an emergency, dial 4-4-2 or go to your nearest emergency department. NEED HELP? Are you dealing with a violent or abusive relationship? Are you a victim of rape or sexual assult? Call [facility] ([place]) 24 hour Crisis Hotline: 514.784.4003 or 301-427-3583. MANUAL Your Guide to a Healthy manual is now on-line. Visit [email or web address] [email or web address] to download your free copy documented in this encounter [facility] 06-08-2023 Note HNO ID: [id number] Author: Willy Juarez LGC Service: ? Author Type: Genetic Counselor Type: Progress Notes Filed: 07/03/2023 9:48 AM Note Text: REPRODUCTIVE GENETIC COUNSELING INITIAL VISIT Collin Hwang : 2000 Above identifiers confirmed by Willy Juarez MS, [facility] Consultation requested by: Quang De La Garza MD Date of clinic visit: June 08, 2023 Salon Shampoo Assistant offered/present: No - Yoruba per EMR Collin Hwang is a 22 year old female referred by Dr. Quang De La Garza for genetic counseling to discuss her cystic fibrosis carrier status. Ms. Hwang is seen via a virtual Distance Health visit today via Access [employer] Zoom platform per patient choice. The visit is conducted synchronously in real-time. The patient and her , Julien Soria, are in attendance. I have communicated my name and active licensure. The patient's identity and physical location were verified at the time of this visit. Either the patient or their legal customer retention representative has been informed of the risks [...] 11/13/2022 MARIANNA: 08/20/2023 Plans to deliver at [facility] history: 1. 2017, , 31 weeks, IOL for infection 2. 2020, SAB, early first trimester 3. Current Infertility as a couple: No. Infertility with other partners: Unknown. Parental Screens: Maternal Myriad Fundamental (14 condition) Panel: Identified as a carrier of Cystic Fibrosis (CFTR c.[id number] aka [id number]) Hemoglobinopathies: No; Patient's MCV: 96.2 fL Islam Diseases: No Other: No Chromosomal analysis: Patient: [...] No - Other: No - Patient's ethnicity: Citizen Of [place] - Partner's ethnicity: Citizen Of [place] - Patient and/or partner did not report -Japanese, , Mediterranean, Ashkenazi Islam and/or Austrian-Ethiopian/Cajun ancestries unless noted above. - Patient and [...] CF and it (more content not included)... [facility] 06-08-2023 History of Presen t illness Narrative REPRODUCTIVE GENETIC COUNSELING INITIAL VISIT Collin Hwang : 2000 Above identifiers confirmed by Willy Juarez MS, [facility] Consultation requested by: Quang De La Garza MD Date of clinic visit: June 08, 2023 Salon Shampoo Assistant offered/present: No - Yoruba per EMR Collin Hwang is a 22 year old female referred by Dr. Quang De La Garza for genetic counseling to discuss her cystic fibrosis carrier status. Ms. Hwang is seen via a virtual Distance Health visit today via [employer] platform per patient choice. The visit is conducted synchronously in real-time. The patient and her , Julien Soria, are in attendance. I have communicated my name and active licensure. The patient's identity and physical location were verified at the time of this visit. Either the patient or their legal customer retention representative has been informed of the risks [...] 11/13/2022 MARIANNA: 08/20/2023 Plans to deliver at [facility] history: 1. 2017, , 31 weeks, IOL for infection 2. 2020, SAB, early first trimester 3. Current Infertility as a couple: No. Infertility with other partners: Unknown. Parental Screens: Maternal Myriad Fundamental (14 condition) Panel: Identified as a carrier of Cystic Fibrosis (CFTR c.1521_[id number] aka [id number]) Hemoglobinopathies: No; Patient's MCV: 96.2 fL Islam Diseases: No Other: No Chromosomal analysis: Patient: [...] No - Other: No - Patient's ethnicity: Citizen Of [place] - Partner's ethnicity: Citizen Of [place] - Patient and/or partner did not report -Japanese, , Mediterranean, Ashkenazi Islam and/or Austrian-Ethiopian/Cajun ancestries unless noted above. - Patient and [...] opted for concurrent expanded carrier screening via [employer]. [employer] will be contacted to upgrade Ms. Hwang's [...] expanded carrier screening panel (176 conditions through [employer]) as well as expanded carrier screening (176 [...] greater than 50% of which was spent [id number] counseling. This plan is being carried out under the oversight of Dr. Desiree Cantrell. This note will also be sent to the referring provider via the electronic medical record. Seen and d/w Willy Juarez MS, [facility] Licensed, Certified Genetic Counselor Mathew Starks MD Maternal Medicine Fellow PGY-5 EPIC CC: Dr. Quang De La Garza Referring Physician Dr. Desiree Cantrell (physician advisor) TEACHING PHYSICIAN NOTE OF PERSONAL INVOLVEMENT IN CARE: I have overseen this patient's care and medical decision-making components. I have reviewed the fellow's documentation and verified the findings in the note as written. Any additions or changes are noted in italics. Signature: Willy Juarez CGC Date: June 11, 2023 Time: 10:29 pm documented in this encounter [facility] 05-24-2023 Miscellaneous Notes Formattin g of this note might be different from the original. See result note 3 hr GTT ordered documented in this encounter [facility] 05-24-2023 Note HNO ID: [id number] Author: Natalie Orona MA Service: ? Author Type: Bottom Pounder Cement Shoes Type: Progress Notes Filed: 05/24/2023 10:09 AM [...] severely ill: Yes Patient denies history of Guillain-Culver Syndrome (a severe paralytic illness): Yes Tdap Adacel injection was given without incident. See immunizations for details of immunizations administered today. VIS sheet provided: Yes Provider Quang De La Garza DO was present in office at time of injection. Natalie Orona MA [facility] 05-24-2023 Miscellaneous Notes Formattin g of [...] La Garza DO documented in this encounter [facility] 05-24-2023 History of Presen t illness [...] severely ill: Yes Patient denies history of Guillain-Culver Syndrome (a severe paralytic illness): Yes Tdap Adacel injection was given without incident. See immunizations for details of immunizations administered today. VIS sheet provided: Yes Provider Quang De La Garza DO was present in office at time of injection. Natalie Orona MA documented in this encounter [facility] 05-24-2023 Instructions Natalie Orona MA - 05/24/2023 9:23 AM EDT SEQUENTIAL SCREENINGS The [facility] offers sequential screenings for women who [...] It will require an appointment with our geoscience technician. This is not an ultrasound performed [...] the above symptoms, contact our office at [phone] and ask to speak with a nurse. After hours, you can call doctors registry at [phone] OR call [facility] at [phone] and ask to have the doctor bus transportation manager paged. If you consider this an emergency, dial 9-1-1 or go to your nearest emergency department. NEED HELP? Are you dealing with a violent or abusive relationship? Are you a victim of rape or sexual assult? Call [facility] ([place]) 24 hour Crisis Hotline: 762.211.6546 or 914-837-9423. MANUAL Your Guide to a Healthy manual is now on-line. Visit [email or web address] [email or web address] to download your free copy documented in this encounter [facility] 04-30-2023 Miscellaneous Notes Formattin g of this note might be different from the original. Rx sent See pt's mychart message and further advise. Spoke with pharmacy and they are needing clarification on pended order below. Frida Washington LPN documented in this encounter [facility] 04-26-2023 Miscellaneous Notes Formattin g of this note might be different from the original. Patient scheduled tomorrow at 10:15 am Images from the original note were not included. Diana Kauffman APRN.CNM P [facility] Ob-Preservative Filler Machine Operator Pool PATIENT NEEDS FINAL CERVICAL LENGTH ULTRASOUND BY NEXT WEEK. Please call and notify patient and assist with scheduling. Diana Kauffman APRN.CNM documented in this encounter [facility] 04-26-2023 Miscellaneous Notes Formattin g of [...] Diana Kauffman APRN.CNM documented in this encounter [facility] 04-26-2023 Instructions Mauri Umana Cma - 04/26/2023 10:05 AM EDT SEQUENTIAL SCREENINGS The [facility] offers sequential screenings for women who [...] It will require an appointment with our geoscience technician. This is not an ultrasound performed [...] the above symptoms, contact our office at [phone] and ask to speak with a nurse. After hours, you can call doctors registry at [phone] OR call [facility] at [phone] and ask to have the doctor bus transportation manager paged. If you consider this an emergency, dial 6-1-2 or go to your nearest emergency department. NEED HELP? Are you dealing with a violent or abusive relationship? Are you a victim of rape or sexual assult? Call [facility] 24 hour Crisis Hotline: 410.218.3008 or 050-351-7166. MANUAL Your Guide to a Healthy manual is now on-line. Visit [email or web address] [email or web address] to download your free copy documented in this encounter [facility] 04-23-2023 Note HNO ID: [id number] Author: Angel Rapp APRN.HATCHERY MANAGER Service: ? Author Type: Nurse Practitioner Type: [...] of care. This note was generated using Jixee software. It may contain errors in wording, punctuation, or spelling. Angel Rapp APRN.[facility] 04-23-2023 History of Presen t illness Narrative [...] of care. This note was generated using Jixee software. It may contain errors in wording, punctuation, or spelling. Angel Rapp APRN.HATCHERY MANAGER documented in this encounter [facility] 04-02-2023 Miscellaneous Notes Formattin g of this note might be different from the original. 2nd risk assessment form submitted at 20 wks. Kate Murdock RN documented in this encounter [facility] 03-29-2023 Miscellaneous Notes Formattin g of [...] Diana Kauffman APRN.CNM documented in this encounter [facility] 03-29-2023 Instructions Mauri Umana Cma - 03/29/2023 10:08 AM EDT SEQUENTIAL SCREENINGS The [facility] offers sequential screenings for women who [...] It will require an appointment with our geoscience technician. This is not an ultrasound performed [...] the above symptoms, contact our office at [phone] and ask to speak with a nurse. After hours, you can call doctors registry at [phone] OR call [facility] at [phone] and ask to have the doctor bus transportation manager paged. If you consider this an emergency, dial or go to your nearest emergency department. NEED HELP? Are you dealing with a violent or abusive relationship? Are you a victim of rape or sexual assult? Call [facility] ([place]) 24 hour Crisis Hotline: 521.311.7070 or 492-490-3973. MANUAL Your Guide to a Healthy manual is now on-line. Visit [email or web address] [email or web address] to download your free copy documented in this encounter [facility] 03-27-2023 Miscellaneous Notes Formattin g of this note might be different from the original. Please file order for anatomy US. Thank you. Magruerite Saucedo RN documented in this encounter [facility] 03-06-2023 Note HNO ID: [id number] Author: Nicolás Willis MD Service: ? Author [...] then likely plan (more content not included)... [facility] 02-28-2023 Miscellaneous Notes Formattin g of this note might be different from the original. Received records from [facility] from previous delivery. To [facility] mailbox for upcoming [facility] visit on 03/06/23. Danni Wan RN documented in this encounter [facility] 02-06-2023 Note HNO ID: [id number] Author: Sophia Haywood Ma Service: ? Author Type: ? Type: Progress Notes Filed: 02/06/2023 10:37 AM Note Text: Patient here for First Trimester Screening. See ultrasound report for details. Options for genetic screening and diagnosis discussed with the patient. Patient opts for first trimester screening and the sequential screening protocol. Limitations of screening tests discussed with the patient. Angélica Lima MD [facility] 02-06-2023 Miscellaneous Notes Formattin g of this [...] Angélica Lima MD documented in this encounter [facility] 02-06-2023 History of Presen t illness Narrative Patient here for First Trimester Screening. See ultrasound report for details. Options for genetic screening and diagnosis discussed with the patient. Patient opts for first trimester screening and the sequential screening protocol. Limitations of screening tests discussed with the patient. Angélica Lima MD documented in this encounter [facility] 02-06-2023 Instructions Sophia Haywood Ma - 02/06/2023 10:10 AM EDT SEQUENTIAL SCREENINGS The [facility] offers sequential screenings for women who [...] It will require an appointment with our geoscience technician. This is not an ultrasound performed [...] the above symptoms, contact our office at [phone] and ask to speak with a nurse. After hours, you can call doctors registry at [phone] OR call [facility] at [phone] and ask to have the doctor bus transportation manager paged. If you consider this an emergency, dial or go to your nearest emergency department. NEED HELP? Are you dealing with a violent or abusive relationship? Are you a victim of rape or sexual assult? Call [facility] ([place]) 24 hour Crisis Hotline: 290.935.2196 or 638-866-5301. MANUAL Your Guide to a Healthy manual is now on-line. Visit [email or web address] [email or web address] to download your free copy SEQUENTIAL TESTING PROCESS Sequential Screen First Trimester Today you are currently: 12w1d weeks 02/06/2023: Ultrasound and blood test. Sequential Screen Second Trimester (16-17 Weeks Gestation) When you are called with your results, the nurse will give the optimal draw dates for the Sequential screen second trimester. Blood testing can be done at any [facility] lab. Please report to the any lap grinder office front line leader for the Sequential Part 2 requisition and [...] medicine office, for east side please call [phone] or for the West side call [phone] and ask for the the nurse. Thank you. documented in this encounter [facility] 01-11-2023 Miscellaneous Notes Formattin g of this note might be different from the original. risk assessment form complete Ros Boogie RN documented in this encounter [facility] 01-09-2023 Note HNO ID: [id number] Author: Gunjan Blackwood MD Service: ? Author [...] use: No Multivitamin with Folic acid: Yes Islam or heritage: No Would refuse blood transfusion [...] Your guide to a health and the Liner Replacer. Tra (more content not included)... 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 Discussed aneuploidy and carrier screening. Regarding aneuploidy [...] Gunjan Blackwood MD documented in this encounter [facility] 01-09-2023 Instructions Beverly Rios Ma - 01/09/2023 1:03 PM EDT Please select the following link to access the [facility] Your Guide to a Healthy . [email or web address] documented in this encounter [facility] 01-04-2023 Note HNO ID: [id number] Author: Christa Jane RN Service: ? Author [...] None, Apgar5: None, Living: None, Comments: None [facility] 12-20-2022 Miscellaneous Notes Formattin g of this note might be different from the original. PNOB scheduled. Marguerite Saucedo RN Left message for patient to return phone call. Patient has an appointment with Dr Blackwood for NOB appointment. Please schedule PNOB appointment. documented in this encounter [facility] 09-30-2022 Note HNO ID: [id number] Author: Donny Madden APRN.HATCHERY MANAGER Service: ? Author Type: Nurse Practitioner Type: [...] - STREP A MOLECULAR (POC) Donny Madden APRN.[facility] 09-30-2022 History of Presen t illness Narrative [...] - STREP A MOLECULAR (POC) Donny Madden APRN.HATCHERY MANAGER documented in this encounter [facility] 08-03-2022 Miscellaneous Notes Formattin g of [...] Discussed expected course of illness Pratibha Amaro APRN.HATCHERY MANAGER documented in this encounter [facility] 08-02-2022 History of Presen t illness [...] Pratibha Amaro APRN.CNP documented in this encounter [facility] 08-02-2022 Instructions Pratibha Amaro APRN.CNP - [...] to your local emergency facility: Notify the seaming machine operator that you are seeking care for [...] concerning to you. documented in this encounter [facility] documented as of this encounter (statuses as of 03/15/2023) [facility]11[facility]10[facility]2021 History of Past illness Narrative* Problem Noted Date Diagnosed Date Resolved Date Miscarriage, threatened, early 06/22/2021 03/06/2023 documented as of this encounter (statuses as of 03/28/2023) [address]10-2021 History of Past illness Narrative* Problem Noted Date Diagnosed Date Resolved Date Miscarriage, threatened, early 06/22/2021 03/06/2023 documented as of this encounter (statuses as of 03/29/2023) [facility] History of Past illness Narrative* Problem Noted Date Diagnosed Date Resolved Date Miscarriage, threatened, early 06/22/2021 03/06/2023 documented as of this encounter (statuses as of 03/29/2023) [facility] History of Past illness Narrative* Problem Noted Date Diagnosed Date Resolved Date Miscarriage, threatened, early 06/22/2021 03/06/2023 documented as of this encounter (statuses as of 04/02/2023) [facility] History of Past illness Narrative* Problem Noted Date Diagnosed Date Resolved Date Miscarriage, threatened, early 06/22/2021 03/06/2023 documented as of this encounter (statuses as of 04/24/2023) [address]10-2021 History of Past illness Narrative* Problem Noted Date Diagnosed Date Resolved Date Miscarriage, threatened, early 06/22/2021 03/06/2023 documented as of this encounter (statuses as of 04/26/2023) [address]10-2021 History of Past illness Narrative* Problem Noted Date Diagnosed Date Resolved Date Miscarriage, threatened, early 06/22/2021 03/06/2023 documented as of this encounter (statuses as of 04/26/2023) [address]-2021 History of Past illness Narrative* Problem Noted Date Diagnosed Date Resolved Date Miscarriage, threatened, early 06/22/2021 03/06/2023 documented as of this encounter (statuses as of 04/27/2023) [address]10-2021 History of Past illness Narrative* Problem Noted Date Diagnosed Date Resolved Date Miscarriage, threatened, early 06/22/2021 03/06/2023 documented as of this encounter (statuses as of 04/30/2023) [address]10-2021 History of Past illness Narrative* Problem Noted Date Diagnosed Date Resolved Date Miscarriage, threatened, early 06/22/2021 03/06/2023 documented as of this encounter (statuses as of 05/24/2023) [address]-2021 History of Past illness Narrative* Problem Noted Date Diagnosed Date Resolved Date Miscarriage, threatened, early 06/22/2021 03/06/2023 documented as of this encounter (statuses as of 05/25/2023) [address]-2021 History of Past illness Narrative* Problem Noted Date Diagnosed Date Resolved Date Miscarriage, threatened, early 06/22/2021 03/06/2023 documented as of this encounter (statuses as of 06/12/2023) [address]-2021 History of Past illness Narrative* Problem Noted Date Diagnosed Date Resolved Date Miscarriage, threatened, early 06/22/2021 03/06/2023 documented as of this encounter (statuses as of 06/21/2023) [address]-2021 History of Past illness Narrative* Problem Noted Date Diagnosed Date Resolved Date Miscarriage, threatened, early 06/22/2021 03/06/2023 documented as of this encounter (statuses as of 07/04/2023) [address]-2021 History of Past illness Narrative* Problem Noted Date Diagnosed Date Resolved Date Miscarriage, threatened, early 06/22/2021 03/06/2023 documented as of this encounter (statuses as of 08/02/2023) [address]-2021 History of Past illness Narrative* Problem Noted Date Diagnosed Date Resolved Date Miscarriage, threatened, early 06/22/2021 03/06/2023 documented as of this encounter (statuses as of 08/02/2023) [facility] Suspected COVID-19 virus infection- Primary [facility] Diagnosis Strep throat- Primary Streptococcal sore throat Sore throat Acute pharyngitis [facility] Diagnosis Supervision of other high risk pregnancies, first trimester- Primary with uncertain dates in first trimester Screening for cervical cancer Screening for malignant neoplasm of the cervix Encounter for screening of mother Unspecified screening History of delivery, currently in first trimester 8 weeks gestation of state, incidental [facility] Diagnosis of unknown anatomic location- Primary state, incidental [facility]* Diagnosis Encounter for (NT) nuchal translucency scan- Primary Other specified screening Encounter for screening of mother Unspecified screening Supervision of other high risk pregnancies, first trimester 12 weeks gestation of state, incidental [facility] Diagnosis Encounter for supervision of other normal , first trimester- Primary 12 weeks gestation of state, incidental Encounter for screening of mother Unspecified screening [facility] Diagnosis History of delivery- Primary Supervision of high risk in second trimester Unspecified high-risk 17 weeks gestation of state, incidental [facility] Diagnosis Encounter for anatomic survey- Primary [facility] Diagnosis 19 weeks gestation of - Primary state, incidental Supervision of high risk in second trimester Unspecified high-risk [facility] Diagnosis Encounter for anatomic survey- Primary 18 weeks gestation of state, incidental History of delivery, currently with history of pre-term labor Obesity affecting in second trimester, unspecified obesity type [facility] Diagnosis Insect stings, accidental or unintentional, initial encounter- Primary Leg swelling Swelling of limb [facility] Diagnosis 23 weeks gestation of - Primary state, incidental Supervision of high risk in second trimester Unspecified high-risk History of delivery [facility] Diagnosis Supervision of high risk in second trimester- Primary Unspecified high-risk 23 weeks gestation of state, incidental History of delivery [facility] Diagnosis 24 weeks gestation of - Primary state, incidental Short cervix affecting Cervical shortening, unspecified as to episode of care or not applicable [facility] Diagnosis 27 weeks gestation of - Primary state, incidental Supervision of high risk in second trimester Unspecified high-risk Need for vaccination Need for prophylactic vaccination and inoculation against unspecified single disease 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 [facility]* Diagnosis Abnormal glucose complicating - Primary Abnormal maternal glucose tolerance, complicating , childbirth, or the puerperium, unspecified as to episode of care [facility]* Diagnosis 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 [facility] Diagnosis Supervision of high risk in third trimester- Primary Unspecified high-risk 31 weeks gestation of state, incidental 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 History of delivery [facility] Diagnosis 33 weeks gestation of - Primary state, incidental Supervision of high risk in third trimester Unspecified high-risk Encounter for prophylactic immunotherapy for respiratory syncytial virus (RSV) [facility]* Diagnosis Supervision of other high risk , antepartum- Primary 37 weeks gestation of state, incidental Positive GBS test documented in this encounter [facility] for referral (narrative)* Diagnostic Procedure Only (Routine) - Authorized Specialty Diagnoses / Procedures Referred By Contac t Referred To Contact [facility] Diagnoses Supervision of other high risk pregnancies, first trimester History of delivery, currently in first trimester Procedures OBSTETRIC ULTRASOUND WHI US PREG UTERUS AFTER 1ST TRIMEST GESTATION Gunjan Blackwood MD [address] [place] [address] [facility] [address] [place] [address] Referral ID Status Reason Start Date Expiration Date Visits Requested Visits Authorized [id number] Authorized Auto-Generat ed Referral 01/09/2023 01/09/2024 1 1 * Consult, Test, Treat (Routine) - Authorized Specialty Diagnoses / Procedures Referred By Contac t Referred To Contact Diagnoses Supervision of other high risk pregnancies, first trimester History of delivery, currently in first trimester Procedures CONSULT TO MATERNAL MEDI OFFICE/OUTPATIENT NEW HIGH MDM 60-74 MINUTES Gunjan Blackwood MD [address] [place] [address] Referral ID Status Reason Start Date Expiration Date Visits Requested Visits Authorized [id number] Authorized PCP Requested Referral Auto-Generate d Referral 01/09/2023 01/09/2024 1 1 * Diagnostic Procedure Only (Routine) - Authorized Specialty Diagnoses / Procedures Referred By Contac t Referred To Contact [facility] Diagnoses Encounter for screening of mother Supervision of other high risk pregnancies, first trimester Procedures NUCHAL TRANSLUCENCY WHI US NUCHAL TRANSLUCENCY 1ST GESTATION Gunjan Blackwood MD [address] [place] [address] [facility] [place] [address] Referral ID Status Reason Start Date Expiration Date Visits Requested Visits Authorized [id number] Authorized Auto-Generat ed Referral 01/09/2023 01/09/2024 1 1 [facility] for referral (narrative)* Diagnostic Procedure Only (Routine) - Authorized Specialty Diagnoses / Procedures Referred By Contac t Referred To Contact [facility] Diagnoses Encounter for anatomic survey Procedures OBSTETRIC ULTRASOUND WHI US PREG UTERUS AFTER 1ST TRIMEST 1 GESTATION Gunjan Blackwood MD [address] [place] [address] [facility] [place] [address] Referral ID Status Reason Start Date Expiration Date Visits Requested Visits Authorized [id number] Authorized Auto-Generat ed Referral 03/27/2023 03/26/2024 1 1 [facility] Diagnostic Procedure Only (Routine) - Authorized Specialty Diagnoses / Procedures Referred By Contac t Referred To Contact [facility] Diagnoses 23 weeks gestation of History of delivery Procedures OBSTETRIC ULTRASOUND WHI US PREG UTERUS AFTER 1ST TRIMEST 1 GESTATION Diana Kauffman APRN.CNM [address] [place] [address] [address] Referral ID Status Reason Start Date Expiration Date Visits Requested Visits Authorized [id number] Authorized Auto-Generat ed Referral 04/26/2023 04/25/2024 1 1 [facility] Summary Purpose Family History No Family [...] De La Garza MD [address] [place] [address] [address] Referral ID Status Reason Start Date Expiration Date Visits Requested Visits Authorized [id number] Pending Review PCP Requested Referral Auto-Generate d Referral 3 05/23/2024 1 1 Additional Source Comments INFORMATION SOURCE (unrecogn ized section and content) DATE CREATED AUTHOR AUTHOR'S ORGANIZ ATION 09/07/2023 [facility] Source Comments (unrecognize d section and content) In the event this informatio n is protected by the Federal Confidentiality of Alcohol and Drug Abuse Patient Records regulations: The Federal rules restrict any use of the information to criminally investigate or prosecute any alcohol or drug abuse patient.[facility] the event this information is protected by the Federal Confidentiality of Alcohol and Drug Abuse Patient Records regulations: The Federal rules restrict any use of the information to criminally investigate or prosecute any alcohol or drug abuse patient.[facility] HospitalIn the event this information is protected by the Federal Confidentiality of Alcohol and Drug Abuse Patient Records regulations: The Federal rules restrict any use of the information to criminally investigate or prosecute any alcohol or drug abuse patient.[facility] HospitalIn the event this information is protected by the Federal Confidentiality of Alcohol and Drug Abuse Patient Records regulations: The Federal rules restrict any use of the information to criminally investigate or prosecute any alcohol or drug abuse patient.[facility] HospitalIn the event this information is protected by the Federal Confidentiality of Alcohol and Drug Abuse Patient Records regulations: The Federal rules restrict any use of the information to criminally investigate or prosecute any alcohol or drug abuse patient.[facility] HospitalIn the event this information is protected by the Federal Confidentiality of Alcohol and Drug Abuse Patient Records regulations: The Federal rules restrict any use of the information to criminally investigate or prosecute any alcohol or drug abuse patient.[facility] HospitalIn the event this information is protected by the Federal Confidentiality of Alcohol and Drug Abuse Patient Records regulations: The Federal rules restrict any use of the information to criminally investigate or prosecute any alcohol or drug abuse patient.[facility] HospitalIn the event this information is protected by the Federal Confidentiality of Alcohol and Drug Abuse Patient Records regulations: The Federal rules restrict any use of the information to criminally investigate or prosecute any alcohol or drug abuse patient.[facility] HospitalIn the event this information is protected by the Federal Confidentiality of Alcohol and Drug Abuse Patient Records regulations: The Federal rules restrict any use of the information to criminally investigate or prosecute any alcohol or drug abuse patient.[facility] HospitalIn the event this information is protected by the Federal Confidentiality of Alcohol and Drug Abuse Patient Records regulations: The Federal rules restrict any use of the information to criminally investigate or prosecute any alcohol or drug abuse patient.[facility] HospitalIn the event this information is protected by the Federal Confidentiality of Alcohol and Drug Abuse Patient Records regulations: The Federal rules restrict any use of the information to criminally investigate or prosecute any alcohol or drug abuse patient.[facility] HospitalIn the event this information is protected by the Federal Confidentiality of Alcohol and Drug Abuse Patient Records regulations: The Federal rules restrict any use of the information to criminally investigate or prosecute any alcohol or drug abuse patient.[facility] HospitalIn the event this information is protected by the Federal Confidentiality of Alcohol and Drug Abuse Patient Records regulations: The Federal rules restrict any use of the information to criminally investigate or prosecute any alcohol or drug abuse patient.[facility] HospitalIn the event this information is protected by the Federal Confidentiality of Alcohol and Drug Abuse Patient Records regulations: The Federal rules restrict any use of the information to criminally investigate or prosecute any alcohol or drug abuse patient.[facility] HospitalIn the event this information is protected by the Federal Confidentiality of Alcohol and Drug Abuse Patient Records regulations: The Federal rules restrict any use of the information to criminally investigate or prosecute any alcohol or drug abuse patient.[facility] HospitalIn the event this information is protected by the Federal Confidentiality of Alcohol and Drug Abuse Patient Records regulations: The Federal rules restrict any use of the information to criminally investigate or prosecute any alcohol or drug abuse patient.[facility] HospitalIn the event this information is protected by the Federal Confidentiality of Alcohol and Drug Abuse Patient Records regulations: The Federal rules restrict any use of the information to criminally investigate or prosecute any alcohol or drug abuse patient.[facility] HospitalIn the event this information is protected by the Federal Confidentiality of Alcohol and Drug Abuse Patient Records regulations: The Federal rules restrict any use of the information to criminally investigate or prosecute any alcohol or drug abuse patient.[facility] HospitalIn the event this information is protected by the Federal Confidentiality of Alcohol and Drug Abuse Patient Records regulations: The Federal rules restrict any use of the information to criminally investigate or prosecute any alcohol or drug abuse patient.[facility] HospitalIn the event this information is protected by the Federal Confidentiality of Alcohol and Drug Abuse Patient Records regulations: The Federal rules restrict any use of the information to criminally investigate or prosecute any alcohol or drug abuse patient.[facility] HospitalIn the event this information is protected by the Federal Confidentiality of Alcohol and Drug Abuse Patient Records regulations: The Federal rules restrict any use of the information to criminally investigate or prosecute any alcohol or drug abuse patient.[facility] HospitalIn the event this information is protected by the Federal Confidentiality of Alcohol and Drug Abuse Patient Records regulations: The Federal rules restrict any use of the information to criminally investigate or prosecute any alcohol or drug abuse patient.[facility] HospitalIn the event this information is protected by the Federal Confidentiality of Alcohol and Drug Abuse Patient Records regulations: The Federal rules restrict any use of the information to criminally investigate or prosecute any alcohol or drug abuse patient.[facility] HospitalIn the event this information is protected by the Federal Confidentiality of Alcohol and Drug Abuse Patient Records regulations: The Federal rules restrict any use of the information to criminally investigate or prosecute any alcohol or drug abuse patient.[facility] HospitalIn the event this information is protected by the Federal Confidentiality of Alcohol and Drug Abuse Patient Records regulations: The Federal rules restrict any use of the information to criminally investigate or prosecute any alcohol or drug abuse patient.[facility] HospitalIn the event this information is protected by the Federal Confidentiality of Alcohol and Drug Abuse Patient Records regulations: The Federal rules restrict any use of the information to criminally investigate or prosecute any alcohol or drug abuse patient.[facility] HospitalIn the event this information is protected by the Federal Confidentiality of Alcohol and Drug Abuse Patient Records regulations: The Federal rules restrict any use of the information to criminally investigate or prosecute any alcohol or drug abuse patient.[facility] Reason for Visit (unrecogniz ed section and content) Specialty Diagnoses / Procedures Referred By Contac t Referred To Contact [facility] Diagnoses Encounter for screening of mother Supervision of other high risk pregnancies, first trimester Procedures NUCHAL TRANSLUCENCY WHI US NUCHAL TRANSLUCENCY 1ST GESTATION Gunjan Blackwood MD [address] [place] [address] [address] Referral ID Status Reason Start Date Expiration Date V isits Requested Visits Authorized [id number] Closed Auto-Generate d Referral 01/09/2023 01/09/2024 1 1 Reason Comments Fever Fever, congestion, f atigue, bodyaches and loss of taste x 2 days-positive home COVID Reason Comments Results Reason Comments Sore Throat X 4 days Reason Comments Future Appointment Reason Comments Initial 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 [place] [address] Referral ID Status Reason Start Date Expiration Date V isits Requested Visits Authorized [id number] Closed Auto-Generate d Referral 03/06/2023 03/05/2024 1 1 Reason Comments Orders Reason Onset Date Comments Care 03/29/2023 Specialty Diagnoses / Procedures Referred By Contac t Referred To Contact [facility] Diagnoses Encounter for anatomic survey Procedures OBSTETRIC ULTRASOUND WHI US PREG UTERUS AFTER 1ST TRIMEST GESTATION Gunjan Blackwood MD [address] [place] [address] [address] Referral ID Status Reason Start Date Expiration Date V isits Requested Visits Authorized [id number] Closed Auto-Generate d Referral 03/27/2023 03/26/2024 1 1 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 Kate Murdock RN Reason Comments Insect Bite R inner thigh bee st ing x2 days Reason Onset Date Comments Care 04/26/2023 Reason Comments Orders Specialty Diagnoses / Procedures Referred By Contac t Referred To Contact [facility] Diagnoses 23 weeks gestation of History of delivery Procedures OBSTETRIC ULTRASOUND WHI US PREG UTERUS AFTER 1ST TRIMEST GESTATION Diana Kauffman, URSULA.[facility] [address] [place] [address] [address] Referral ID Status Reason Start Date Expiration Date V isits Requested Visits Authorized [id number] Closed Auto-Generate d Referral 04/26/2023 04/25/2024 1 1 Reason Onset Date Comments Care 05/24/2023 Reason Comments Care Specialty Diagnoses / Procedures Referred By Contac t Referred To Contact 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 Procedures CONSULT TO MEDICAL GENETICS - MEDICAL GENETICS COUNSELING EACH 30 MINUTES Quang De La Garza MD [address] [place] [address] [address] Referral ID Status Reason Start Date Expiration Date Visits Requested Visits Authorized [id number] Pending Review PCP Requested Referral Auto-Generate d Referral 3 05/23/2024 1 1 Reason Onset Date Comments Care 06/21/2023 Reason Onset Date Comments Care 07/04/2023 Reason Onset Date Comments Care 08/01/2023 Reason Comments Question (OB Question) Care Teams (unrecognized sec tion and content) Clinical Research Director Relationship Specialty Start Date End Date Nikko Zimmerman MD PCP - General Family Medicine 04/19/16 Clinical Research Director Relationship Specialty Start Date End Date Nikko Zimmerman MD PCP - General Family Medicine 04/19/16 Clinical Research Director Relationship Specialty Start Date End Date Nikko Zimmerman MD PCP - General Family Medicine 04/19/16 Clinical Research Director Relationship Specialty Start Date End Date Nikko Zimmerman MD PCP - General Family Medicine 04/19/16 Clinical Research Director Relationship Specialty Start Date End Date Nikko Zimmerman MD PCP - General Family Medicine 04/19/16 Clinical Research Director Relationship Specialty Start Date End Date Nikko Zimmerman MD PCP - General Family Medicine 04/19/16 Clinical Research Director Relationship Specialty Start Date End Date Nikko Zimmerman MD PCP - General Family Medicine 04/19/16 Clinical Research Director Relationship Specialty Start Date End Date Nikko Zimmerman MD PCP - General Family Medicine 04/19/16 Clinical Research Director Relationship Specialty Start Date End Date Nikko Zimmerman MD PCP - General Family Medicine 04/19/16 Clinical Research Director Relationship Specialty Start Date End Date Nikko Zimmerman MD PCP - General Family Medicine 04/19/16 Clinical Research Director Relationship Specialty Start Date End Date Nikko Zimmerman MD PCP - General Family Medicine 04/19/16 Clinical Research Director Relationship Specialty Start Date End Date Nikko Zimmerman MD PCP - General Family Medicine 04/19/16 Clinical Research Director Relationship Specialty Start Date End Date Nikko Zimmerman MD PCP - General Family Medicine 04/19/16 Clinical Research Director Relationship Specialty Start Date End Date Nikko Zimmerman MD PCP - General Family Medicine 04/19/16 Clinical Research Director Relationship Specialty Start Date End Date Nikko Zimmerman MD PCP - General Family Medicine 04/19/16 Clinical Research Director Relationship Specialty Start Date End Date Nikko Zimmerman MD PCP - General Family Medicine 04/19/16 Clinical Research Director Relationship Specialty Start Date End Date Nikko Zimmerman MD PCP - General Family Medicine 04/19/16 Clinical Research Director Relationship Specialty Start Date End Date Nikko Zimmerman MD PCP - General Family Medicine 04/19/16 Clinical Research Director Relationship Specialty Start Date End Date Nikko Zimmerman MD PCP - General Family Medicine 04/19/16 Clinical Research Director Relationship Specialty Start Date End Date Nikko Zimmerman MD PCP - General Family Medicine 04/19/16 Clinical Research Director Relationship Specialty Start Date End Date Nikko Zimmerman MD PCP - General Family Medicine 04/19/16 Clinical Research Director Relationship Specialty Start Date End Date Nikko Zimmerman MD PCP - General Family Medicine 04/19/16 Clinical Research Director Relationship Specialty Start Date End Date Nikko Zimmerman MD PCP - General Family Medicine 04/19/16 Clinical Research Director Relationship Specialty Start Date End Date Nikko [...] BE BASED ON THE PRIMARY CLINICAL RECORDS. [facility]. provides no warranty or guarantee of the accuracy or completeness of information in this document.
--- OUTSIDE RECORDS SUMMARY | 2023-09-16 04:49 | XMS RPT_ITS | CCD ---
Author Name Unknown Address [address] [facility] [address] [place] [address] Organization [facility] Care Team Providers Care Identification Officer Name Role Phone Elsie WAGGONER, Nikko Howard Primary Care Provider DIANA KAUFFMAN Referring Unavailable NIKKO ZIMMERMAN Primary Care UnavailANGÉLICA Silva Attending Unavailable NIKKO ZIMMERMAN Primary Care Unavailab ANGÉLICA Brooks Attending Unavailable NIKKO ZIMMERMAN Primary Care Unavailab NIKKO Vargas Primary Care Unavailab JOSE CroninCA Thad Referring Unavailable NICOLÁS WILLIS Attending Unavailable NKIKO ZIMMERMAN Primary Care Unavailab GUNJAN Cronin Referring [...] Unavailable NIKKO ZIMMERMAN Primary Care Unavailab GUNJAN Cronni Attending Unavailable NIKKO ZIMMERMAN Primary Care Unavailab [...] Unavailab WILLY Mendoza Attending Unavailable ELSIE, NIKKO [facility] Unavailab QUANG Gimenez Referring Unavailable ELSIE, NIKKO [facility] Unavailab nico BLACKWOOD, GUNJAN L Attending Unavailable ELSIE, NIKKO [facility] Unavailab nico BLACKWOOD, GUNJAN L Attending Unavailable JAISON, GUNJAN L Referring Unavailable COLLIN MUIR Attending Unavailable ELSIE, NIKKO [facility] Unavailab DIANA Samuel Attending Unavailable ELSIE, NIKKO [facility] Unavailab le ELSIE, NIKKO [facility] Unavailab le ELSIE, NIKKO [facility] Unavailab nico BLACKWOOD, GUNJAN L Referring Unavailable ELSIE, NIKKO [facility] BLACKWOOD, GUNJAN L Referring Unavailable Allergies Allergy Classification Reported Allergen(s) Allergy Type Date of Onset Reaction(s) Facility (20 sources) Sulfamethoxazole / Trimethoprim; Translations: [SULFAMETHOXAZOLE-TRI METHOPRIM] Drug Allergy 6 Unknown [facility] Medications Current Medications Medication Drug Class(es) Dates [...] 82.74 kg Leena Browne APRN.CNP Work Phone: [facility] 08-01-2023 10:28-0500 Diastolic blood pressure 62 mm[Hg] Leena Browne APRN.PHYSICAL TESTING SUPERVISOR Work Phone: [facility] 08-01-2023 10:28-0500 Systolic blood pressure 102 mm[Hg] Leena Browne APRN.CNP Work Phone: [facility] 07-04-2023 11:02-0500 Body weight 81.74 kg Gunjan Blackwood MD Work Phone: [facility] 07-04-2023 11:02-0500 Diastolic blood pressure 60 mm[Hg] Gunjan Blackwood MD Work Phone: [facility] 07-04-2023 11:02-0500 Systolic blood pressure 100 mm[Hg] Gunjan Blackwood MD Work Phone: [facility] 06-21-2023 11:05-0500 Body weight 80.74 kg Diana Gramajoantolin PROPOSAL LEAD WRITER.CNM Work Phone: [facility] 06-21-2023 11:05-0500 Diastolic blood pressure 62 mm[Hg] Diana Plotts PROPOSAL LEAD WRITER.CNM Work Phone: [facility] 06-21-2023 11:05-0500 Systolic blood pressure 114 mm[Hg] Diana Plotts PROPOSAL LEAD WRITER.CNM Work Phone: [facility] 05-24-2023 09:31-0400 Body weight 79.56 kg Quang De La Garza MD Work Phone: [facility] 05-24-2023 09:31-0400 Diastolic blood pressure 60 mm[Hg] Quang De La Garza MD Work Phone: [facility] 05-24-2023 09:31-0400 Systolic blood pressure 100 mm[Hg] Quang De La Garza MD Work Phone: [facility] 04-26-2023 10:09-0400 Body weight 77.38 kg Diana Plotantolin PROPOSAL LEAD WRITER.CNM Work Phone: [facility] 04-26-2023 10:09-0400 Diastolic blood pressure 60 mm[Hg] Diana Plotantolin PROPOSAL LEAD WRITER.CNM Work Phone: [facility] 04-26-2023 10:09-0400 Systolic blood pressure 104 mm[Hg] Diana Plotantolin PROPOSAL LEAD WRITER.CNM Work Phone: [facility] 04-23-2023 17:44-0400 Body temperature 97.5 [degF] Angel Rapp PROPOSAL LEAD WRITER.PHYSICAL TESTING SUPERVISOR Work Phone: [facility] 04-23-2023 17:44-0400 Body weight 76.93 kg Angel Rapp PROPOSAL LEAD WRITER.PHYSICAL TESTING SUPERVISOR Work Phone: [facility] 04-23-2023 17:44-0400 Diastolic blood pressure 66 mm[Hg] Angel Pendlebury PROPOSAL LEAD WRITER.PHYSICAL TESTING SUPERVISOR Work Phone: [facility] 04-23-2023 17:44-0400 Heart rate 66 /min Angel Rapp PROPOSAL LEAD WRITER.PHYSICAL TESTING SUPERVISOR Work Phone: [facility] 04-23-2023 17:44-0400 Respiratory rate 18 /min [facility] PROPOSAL LEAD WRITER.PHYSICAL TESTING SUPERVISOR Work Phone: [facility] 04-23-2023 17:44-0400 SaO2% (BldA) [Mass fraction] 99 % [facility] PROPOSAL LEAD WRITER.PHYSICAL TESTING SUPERVISOR Work Phone: [facility] 04-23-2023 17:44-0400 Systolic blood pressure 104 mm[Hg] Angel Rapp PROPOSAL LEAD WRITER.PHYSICAL TESTING SUPERVISOR Work Phone: [facility] 03-29-2023 10:05-0400 Body weight 74.39 kg Diana Kauffman PROPOSAL LEAD WRITER.CNM Work Phone: [facility] 03-29-2023 10:05-0400 Diastolic blood pressure 66 mm[Hg] Diana Plotts PROPOSAL LEAD WRITER.CNM Work Phone: [facility] 03-29-2023 10:05-0400 Systolic blood pressure 108 mm[Hg] Diana Plotts PROPOSAL LEAD WRITER.CNM Work Phone: [facility] 02-06-2023 10:17-0400 Body weight 72.58 kg Angélica Lima MD Work Phone: [facility] 02-06-2023 10:17-0400 Diastolic blood pressure 62 mm[Hg] Angléica Lima MD Work Phone: [facility] 02-06-2023 10:17-0400 Systolic blood pressure 92 mm[Hg] Angélica Lima MD Work Phone: [facility] 02-06-2023 09:43-0400 Body height 154.9 cm Nicolás Willis MD Work Phone: [facility] 02-06-2023 09:43-0400 Body weight 72.58 kg Nicolás Willis MD Work Phone: [facility] 01-09-2023 13:12-0400 Body height 154.9 cm Gunjan Blackwood MD Work Phone: [facility] 01-09-2023 13:12-0400 Body weight 72.58 kg Gunjan Blackwood MD Work Phone: [facility] 01-09-2023 13:12-0400 Diastolic blood pressure 66 mm[Hg] Gunjan Blackwood MD Work Phone: [facility] 01-09-2023 13:12-0400 Systolic blood pressure 108 mm[Hg] Gunjan Blackwood MD Work Phone: [facility] 09-30-2022 11:52-0500 Body temperature 98.1 [degF] Donny Madden PROPOSAL LEAD WRITER.PHYSICAL TESTING SUPERVISOR Work Phone: [facility] 09-30-2022 11:52-0500 Body weight 75.3 kg Donny Madden PROPOSAL LEAD WRITER.PHYSICAL TESTING SUPERVISOR Work Phone: [facility] 09-30-2022 11:52-0500 Diastolic blood pressure 76 mm[Hg] Donny Madden PROPOSAL LEAD WRITER.PHYSICAL TESTING SUPERVISOR Work Phone: [facility] 09-30-2022 11:52-0500 Heart rate 75 /min Donny Madden PROPOSAL LEAD WRITER.PHYSICAL TESTING SUPERVISOR Work Phone: [facility] 09-30-2022 11:52-0500 Respiratory rate 16 /min Donny Madden PROPOSAL LEAD WRITER.PHYSICAL TESTING SUPERVISOR Work Phone: [facility] 09-30-2022 11:52-0500 SaO2% (BldA) [Mass fraction] 98 % Donny Madden PROPOSAL LEAD WRITER.PHYSICAL TESTING SUPERVISOR Work Phone: [facility] 09-30-2022 11:52-0500 Systolic blood pressure 112 mm[Hg] Donny Madden PROPOSAL LEAD WRITER.PHYSICAL TESTING SUPERVISOR Work Phone: [facility] 08-02-2022 18:09-0500 Body temperature 100.2 [degF] Pratibha Amaro PROPOSAL LEAD WRITER.PHYSICAL TESTING SUPERVISOR Work Phone: [facility] 08-02-2022 18:09-0500 Body weight 76.02 kg Pratibha Praisler-Johnathon PROPOSAL LEAD WRITER.PHYSICAL TESTING SUPERVISOR Work Phone: [facility] 08-02-2022 18:09-0500 Diastolic blood pressure 80 mm[Hg] Pratibha Praisler-Wood PROPOSAL LEAD WRITER.PHYSICAL TESTING SUPERVISOR Work Phone: [facility] 08-02-2022 18:09-0500 Heart rate 95 /min Pratibha Praisler-Wood PROPOSAL LEAD WRITER.PHYSICAL TESTING SUPERVISOR Work Phone: [facility] 08-02-2022 18:09-0500 Respiratory rate 18 /min Pratibha Praisler-Wood PROPOSAL LEAD WRITER.PHYSICAL TESTING SUPERVISOR Work Phone: [facility] 08-02-2022 18:09-0500 SaO2% (BldA) [Mass fraction] 98 % Pratibha Ospinaisler-Wood PROPOSAL LEAD WRITER.PHYSICAL TESTING SUPERVISOR Work Phone: [facility] 08-02-2022 18:09-0500 Systolic blood pressure 122 mm[Hg] Pratibha Praisler-Wood PROPOSAL LEAD WRITER.PHYSICAL TESTING SUPERVISOR Work Phone: [facility] Encounters Encounter Date Encounter Type Care Provider Facility Start: 09-06-2023 End: 09-06-2023 ambulatory [facility] Facility:[facility] Start: 08-01-2023 Telephone encounter Karen Hudson MD Work Phone: OB/Gynecology Procedures Date Procedure Procedure Detail Performing Clinician Start: 08-01-2023 URINE OB DIP B/O Leena Browne PROPOSAL LEAD WRITER.PHYSICAL TESTING SUPERVISOR Work Phone: Start: 07-04-2023 RSV VACCINE, BIVALEN T (ABRYSVO) Gunjan Blackwood MD Work Phone: Start: 07-04-2023 URINE OB DIP B/O Danya Blackwood MD Work Phone: Start: 06-21-2023 URINE OB DIP B/O Kole Kauffman PROPOSAL LEAD WRITER.CNM Work Phone: Start: 05-24-2023 Antibody screen TULIO KAUFFMAN Plan of Treatment Date Care Activity Detail Author Start: 05-24-2033 Urine microalbumin profile [facility] Start: 01-09-2026 PAP TESTING PAP TESTING [facility] Start: 01-09-2026 Screening for malignant neoplasm of cervix Pap Testing [facility] Start: 01-10-2024 CHLAMYDIA SCREENING (18-24) CHLAMYDIA SCREENING (18-24) [facility] Start: 01-10-2024 GC (GONORRHEA) SCREENING (18-24) GC (GONORRHEA) SCREENING (18-24) [facility] Start: 05-24-2023 End: 07-24-2023 GEST GLUC GARTH, 3-HR, 100 GM, FASTING GEST GLUC GARTH, 3-HR, 100 GM, FASTING Lab Routine Abnormal glucose complicating Expected: 05/24/2023, Expires: 07/24/2023 [facility] Work Phone: Immunizations Immunization Date Immunization Notes Care Provider [facility] 07-04-2023 respiratory syncytia l virus (RSV) vaccine, bivalent (ABRYSVO) Gunjan Blackwood MD Work Phone: [facility] 05-24-2023 tetanus toxoid, redu crystal diphtheria toxoid, and acellular pertussis vaccine, adsorbed Quang De La Garza MD Work Phone: [facility] 05-20-2004 measles, mumps and rubella virus vaccine Gunjan Blackwood MD Work Phone: [facility] 01-18-2004 diphtheria, tetanus toxoids and acellular pertussis vaccine Gunjan Blackwood MD Work Phone: [facility] 01-18-2004 measles, mumps and rubella virus vaccine Gunjan Blackwood MD Work Phone: [facility] 01-18-2004 poliovirus vaccine, inactivated Gunjan Blackwood MD Work Phone: [facility] 03-10-2003 diphtheria, tetanus toxoids and acellular pertussis vaccine, unspecified formulation Gunjan Blackwood MD Work Phone: [facility] 03-10-2003 hepatitis B vaccine, pediatric or pediatric/adolescent dosage Gunjan Blackwood MD Work Phone: [facility] 03-10-2003 poliovirus vaccine, unspecified formulation Gunjan Blackwood MD Work Phone: [facility] 06-24-1999 diphtheria, tetanus toxoids and acellular pertussis vaccine, unspecified formulation Gunjan Blackwood MD Work Phone: [facility] 06-24-1999 haemophilus influenz ae type b vaccine, conjugate unspecified formulation Gunjan Blackwood MD Work Phone: [facility] 06-24-1999 poliovirus vaccine, unspecified formulation Gunjan Blackwood MD Work Phone: [facility] 02-16-1999 diphtheria, tetanus toxoids and acellular pertussis vaccine, unspecified formulation Gunjan Blackwood MD Work Phone: [facility] 02-16-1999 haemophilus influenz ae type b vaccine, conjugate unspecified formulation Gunjan Blackwood MD Work Phone: [facility] 02-16-1999 hepatitis B vaccine, pediatric or pediatric/adolescent dosage Gunjan Blackwood MD Work Phone: [facility] 02-16-1999 poliovirus vaccine, unspecified formulation Gunjan Blackwood MD Work Phone: [facility] 1998 hepatitis B vaccine, pediatric or pediatric/adolescent dosage Gunjan Blackwood MD Work Phone: [facility] Payers Date Payer Category Payer Medicaid [id number] 2022 Medicaid [id number] 2019 Medicaid [id number] Social History Date Type Detail Facility Start: [facility] Start: 08-02-2022 End: 01-04-2023 Tobacco use and exposure Smokeless tobacco non-user [facility] Start: 08-02-2022 End: 08-01-2023 Alcohol intake Ex-drinker (finding) [facility] Start: 08-02-2022 Tobacco Comment Pt vapes [facility] Start: 2000 Sex Assigned At Not on file [facility] Start: 01-04-2023 Tobacco smoking stat us [facility]IS Ex-smoker [facility] Work Phone: End: 12-13-2022 History of tobacco use Current smoker [facility] Work Phone: End: 12-13-2022 History of tobacco use Cigarette Smoker [facility] Work Phone: Start: 01-04-2023 Education 13 [facility] Start: 11-27-2022 [facility] Start: 07-21-2020 End: 02-06-2023 History of Social function [facility] Start: 07-21-2020 End: 02-06-2023 Tobacco use panel [facility] National Score (1-10 0), lower number is lower risk Not on file [facility] Clinical Notes 06-22-2021 to 09-06-2023 Telephone Encounter - María Baker LPN - 08/01/2023 3:31 PM ESTTelephone Encounter - Marguerite Saucedo RN - 08/01/2023 3:22 PM ESTPatient InstructionsPatient InstructionsPatient Instructions Note Date & Type Note Facility 09-06-2023 Note HNO ID: [id number] Author: ANGÉLICA LIMA MD Service: ? Author Type: Physician Type: Progress Notes Filed: 09/06/2023 10:53 Note Text: VISIT Collin Hwang is a 22 year old year old here for visit. Delivery Summary: ROS/ Recovery: Feeding: Breast feeding problems: None Menses since delivery: has not resumed Menstrual pattern prior to : Regular periods [place] since delivery: Not resumed Depression: denies [...] external genitalia normal, normal Bartholin's glands, urethra, Herricks's glands, no vulvar lesions, no cervical lesions, [...] for insertion of IUD Angélica Lima MD [facility] 08-07-2023 Note HNO ID: [id number] Author: Toshia Cha RN Service: ? Author Type: Registered Nurse Type: Progress Notes Filed: 08/07/2023 9:44 AM Note Text: Patient delivered via vacuum assisted vaginal delivery 08/04/[address] Gunjan Blackwood MD. [facility] 08-01-2023 Miscellaneous Notes Formattin g of this [...] Danni Wan RN documented in this encounter [facility] 08-01-2023 Miscellaneous Notes Formattin g of this [...] Leena Browne APRN.ROGERS documented in this encounter [facility] 08-01-2023 Instructions s Sophia Ho - 08/01/2023 10:23 AM EST SEQUENTIAL SCREENINGS The [facility] offers sequential screenings for women who are [...] It will require an appointment with our veterinary surgery technician. This is not an ultrasound performed [...] the above symptoms, contact our office at [phone] and ask to speak with a nurse. After hours, you can call doctors registry at [phone] OR call [facility] at [phone] and ask to have the doctor commanding officer traffic division paged. If you consider this an emergency, dial or go to your nearest emergency department. NEED HELP? Are you dealing with a violent or abusive relationship? Are you a victim of rape or sexual assult? Call [facility] ([place]) 24 hour Crisis Hotline: 305.155.5590 or 371-592-1726. MANUAL Your Guide to a Healthy manual is now on-line. Visit [email or web address]/HealthyPre gnancyGuide to download your free copy documented in this encounter [facility] 07-04-2023 Miscellaneous Notes Formattin g of this [...] Gunjan Blackwood M.D. documented in this encounter [facility] 07-04-2023 Instructions Natalie Orona MA - 07/04/2023 10:58 AM EST SEQUENTIAL SCREENINGS The [facility] offers sequential screenings for women who are [...] It will require an appointment with our veterinary surgery technician. This is not an ultrasound performed [...] the above symptoms, contact our office at [phone] and ask to speak with a nurse. After hours, you can call doctors registry at [phone] OR call [facility] at [phone] and ask to have the doctor commanding officer traffic division paged. If you consider this an emergency, dial 9--6 or go to your nearest emergency department. NEED HELP? Are you dealing with a violent or abusive relationship? Are you a victim of rape or sexual assult? Call [facility] ([place]) 24 hour Crisis Hotline: 869.581.8467 or 712-923-8292. MANUAL Your Guide to a Healthy manual is now on-line. Visit [email or web address]/HealthyPre gnancyGuide to download your free copy documented in this encounter [facility] 06-21-2023 Miscellaneous Notes Formattin g of this [...] Diana Kauffman APRN.CNM documented in this encounter [facility] 06-21-2023 Mauri Allen Cma 06/21/2023 11:02 AM EST SEQUENTIAL SCREENINGS The [facility] offers sequential screenings for women who are [...] It will require an appointment with our veterinary surgery technician. This is not an ultrasound performed [...] the above symptoms, contact our office at [phone] and ask to speak with a nurse. After hours, you can call doctors registry at [phone] OR call [facility] at [phone] and ask to have the doctor commanding officer traffic division paged. If you consider this an emergency, dial 8-1-2 or go to your nearest emergency department. NEED HELP? Are you dealing with a violent or abusive relationship? Are you a victim of rape or sexual assult? Call [facility] ([place]) 24 hour Crisis Hotline: 210.700.7337 or 912-896-6703. MANUAL Your Guide to a Healthy manual is now on-line. Visit [email or web address]/HealthyPre gnancyGuide to download your free copy documented in this encounter [facility] 06-08-2023 Note HNO ID: [id number] Author: Willy Juarez LGC Service: ? Author Type: Genetic Counselor Type: Progress Notes Filed: 07/03/2023 9:48 AM Note Text: REPRODUCTIVE GENETIC COUNSELING INITIAL VISIT Collin Hwang : 2000 Above identifiers confirmed by Willy Juarez MS, [facility] Consultation requested by: Quang De La Garza MD Date of clinic visit: June 08, 2023 Marketing Proposal Specialist offered/present: No - Sinhala per EMR Collin Hwang is a 22 year old female referred by Dr. Quang De La Garza for genetic counseling to discuss her cystic fibrosis carrier status. Ms. Hwang is seen via a virtual Distance Health visit today via [email or web address] Zoom platform per patient choice. The visit is conducted synchronously in real-time. The patient and her , Julien Soria, are in attendance. I have communicated my name and active licensure. The patient's identity and physical location were verified at the time of this visit. Either the patient or their legal compliance representative dealer has been informed of the risks and [...] 11/13/2022 MARIANNA: 08/20/2023 Plans to deliver at [facility] [place] history: 1. 2017, , 31 weeks, IOL for infection 2. 2020, SAB, early first trimester 3. Current Infertility as a couple: No. Infertility with other partners: Unknown. Parental Screens: Maternal Myriad Fundamental (14 condition) Panel: Identified as a carrier of Cystic Fibrosis (CFTR [id number] aka [id number]) Hemoglobinopathies: No; Patient's MCV: 96.2 fL Episcopalian Diseases: No Other: No Chromosomal analysis: Patient: [...] No - Other: No - Patient's ethnicity: Ghanaian/Shreya - Partner's ethnicity: Ghanaian - Patient and/or partner did not report -Kittitian, , Mediterranean, Ashkenazi Episcopalian and/or Tuvaluan-Cape Verdean/Cajun ancestries unless noted above. - Patient and [...] CF and it (more content not included)... [facility] 06-08-2023 History of Presen t illness Narrative REPRODUCTIVE GENETIC COUNSELING INITIAL VISIT Collin Hwang : 2000 Above identifiers confirmed by Willy Juarez MS, [facility] Consultation requested by: Quang De La Garza MD Date of clinic visit: June 08, 2023 Marketing Proposal Specialist offered/present: No - Sinhala per EMR Collin Hwang is a 22 year old female referred by Dr. Quang De La Garza for genetic counseling to discuss her cystic fibrosis carrier status. Ms. Hwang is seen via a virtual Distance Health visit today via [employer] platform per patient choice. The visit is conducted synchronously in real-time. The patient and her , Julien Soria, are in attendance. I have communicated my name and active licensure. The patient's identity and physical location were verified at the time of this visit. Either the patient or their legal compliance representative dealer has been informed of the risks and [...] 11/13/2022 MARIANNA: 08/20/2023 Plans to deliver at [facility] [place] history: 1. 2017, , 31 weeks, IOL for infection 2. 2020, SAB, early first trimester 3. Current Infertility as a couple: No. Infertility with other partners: Unknown. Parental Screens: Maternal Myriad Fundamental (14 condition) Panel: Identified as a carrier of Cystic Fibrosis (CFTR [id number] aka [id number]) Hemoglobinopathies: No; Patient's MCV: 96.2 fL Episcopalian Diseases: No Other: No Chromosomal analysis: Patient: [...] No - Other: No - Patient's ethnicity: Ghanaian/Shreya - Partner's ethnicity: Ghanaian - Patient and/or partner did not report -Kittitian, , Mediterranean, Ashkenazi Episcopalian and/or Tuvaluan-Cape Verdean/Cajun ancestries unless noted above. - Patient and [...] opted for concurrent expanded carrier screening via [employer]. [employer] will be contacted to upgrade Ms. Hwang's [...] expanded carrier screening panel (176 conditions through [employer]) as well as expanded carrier screening (176 [...] greater than 50% of which was spent [id number]-om-[id number] counseling. This plan is being carried out under the oversight of Dr. Desiree Cantrell. This note will also be sent to the referring provider via the electronic medical record. Seen and d/w Willy Juarez MS, [facility] Licensed, Certified Genetic Counselor Mathew Starks MD Maternal Medicine Fellow PGY-5 EPIC CC: Dr. Quang De La Garza Referring Physician Dr. Desiree Cantrell (water purification chemist) TEACHING PHYSICIAN NOTE OF PERSONAL INVOLVEMENT IN CARE: I have overseen this patient's care and medical decision-making components. I have reviewed the fellow's documentation and verified the findings in the note as written. Any additions or changes are noted in italics. Signature: Willy Juarez CGC Date: June 11, 2023 Time: 10:29 pm documented in this encounter [facility] 05-24-2023 Miscellaneous Notes Formattin g of this note might be different from the original. See result note 3 hr GTT ordered documented in this encounter [facility] 05-24-2023 Note HNO ID: [id number] Author: Natalie Orona MA Service: ? Author Type: Monogram Maker Type: Progress Notes Filed: 05/24/2023 10:09 AM [...] severely ill: Yes Patient denies history of Guillain-[place] Syndrome (a severe paralytic illness): Yes Tdap Adacel injection was given without incident. See immunizations for details of immunizations administered today. VIS sheet provided: Yes Provider Quang De La Garza DO was present in office at time of injection. Natalie Orona MA [facility] 05-24-2023 Miscellaneous Notes Formattin g of this [...] La Garza DO documented in this encounter [facility] 05-24-2023 History of Presen t illness Narrative [...] severely ill: Yes Patient denies history of Guillain-[place] Syndrome (a severe paralytic illness): Yes Tdap Adacel injection was given without incident. See immunizations for details of immunizations administered today. VIS sheet provided: Yes Provider Quang De La Garza DO was present in office at time of injection. Natalie Orona MA documented in this encounter [facility] 05-24-2023 Instructions Natalie Orona MA - 05/24/2023 9:23 AM EDT SEQUENTIAL SCREENINGS The [facility] offers sequential screenings for women who are [...] It will require an appointment with our veterinary surgery technician. This is not an ultrasound performed [...] the above symptoms, contact our office at [phone] and ask to speak with a nurse. After hours, you can call doctors registry at [phone] OR call [facility] at [phone] and ask to have the doctor commanding officer traffic division paged. If you consider this an emergency, dial 9-1-1 or go to your nearest emergency department. NEED HELP? Are you dealing with a violent or abusive relationship? Are you a victim of rape or sexual assult? Call [facility] ([place]) 24 hour Crisis Hotline: 885.644.8715 or 265-013-2783. MANUAL Your Guide to a Healthy manual is now on-line. Visit [email or web address] to download your free copy documented in this encounter [facility] 04-30-2023 Miscellaneous Notes Formattin g of this note might be different from the original. Rx sent See pt's mychart message and further advise. Spoke with pharmacy and they are needing clarification on pended order below. Frida Washington LPN documented in this encounter [facility] 04-26-2023 Miscellaneous Notes Formattin g of this note might be different from the original. Patient scheduled tomorrow at 10:15 am Images from the original note were not included. Diana Kauffman APRN.CNM [facility] Ob-Home Economics Expert Pool PATIENT NEEDS FINAL CERVICAL LENGTH ULTRASOUND BY NEXT WEEK. Please call and notify patient and assist with scheduling. Diana Kauffman APRN.CNM documented in this encounter [facility] 04-26-2023 Miscellaneous Notes Formattin g of this [...] Diana Kauffman APRN.CNM documented in this encounter [facility] 04-26-2023 Instructions Mauri Umana Cma - 04/26/2023 10:05 AM EDT SEQUENTIAL SCREENINGS The [facility] offers sequential screenings for women who are [...] It will require an appointment with our veterinary surgery technician. This is not an ultrasound performed [...] the above symptoms, contact our office at [phone] and ask to speak with a nurse. After hours, you can call doctors registry at [phone] OR call [facility] at [phone] and ask to have the doctor commanding officer traffic division paged. If you consider this an emergency, dial 4-1- or go to your nearest emergency department. NEED HELP? Are you dealing with a violent or abusive relationship? Are you a victim of rape or sexual assult? Call [facility] ([facility] 24 hour Crisis Hotline: 550.242.5079 or 404-949-8778. MANUAL Your Guide to a Healthy manual is now on-line. Visit [email or web address] gnancyGuide to download your free copy documented in this encounter [facility] 04-23-2023 Note HNO ID: [id number] Author: Angel Rapp APRN.PHYSICAL TESTING SUPERVISOR Service: ? Author Type: Nurse Practitioner Type: [...] of care. This note was generated using [employer] software. It may contain errors in wording, punctuation, or spelling. Angel Rapp APRN.[facility] 04-23-2023 History of Presen t [...] of care. This note was generated using [employer] software. It may contain errors in wording, punctuation, or spelling. Angel Rapp APRN.PHYSICAL TESTING SUPERVISOR documented in this encounter [facility] 04-02-2023 Miscellaneous Notes Formattin g of this note might be different from the original. 2nd risk assessment form submitted at 20 wks. Kate Murdock RN documented in this encounter [facility] 03-29-2023 Miscellaneous Notes Formattin g of this [...] Diana Kauffman APRN.CNM documented in this encounter [facility] 03-29-2023 Instructions Mauri Umana Cma - 03/29/2023 10:08 AM EDT SEQUENTIAL SCREENINGS The [facility] offers sequential screenings for women who are [...] It will require an appointment with our veterinary surgery technician. This is not an ultrasound performed [...] the above symptoms, contact our office at [phone] and ask to speak with a nurse. After hours, you can call doctors registry at [phone] OR call [facility] at [phone] and ask to have the doctor commanding officer traffic division paged. If you consider this an emergency, dial or go to your nearest emergency department. NEED HELP? Are you dealing with a violent or abusive relationship? Are you a victim of rape or sexual assult? Call [facility] ([place]) 24 hour Crisis Hotline: 816.532.3411 or 462-084-2114. MANUAL Your Guide to a Healthy manual is now on-line. Visit [email or web address]/[email or web address] gnancyGuide to download your free copy documented in this encounter [facility] 03-27-2023 Miscellaneous Notes Formattin g of this note might be different from the original. Please file order for anatomy US. Thank you. Marguerite Sauceod RN documented in this encounter [facility] 03-06-2023 Note HNO ID: [id number] Author: Nicolás Willis MD Service: ? Author [...] then likely plan (more content not included)... [facility] 02-28-2023 Miscellaneous Notes Formattin g of this note might be different from the original. Received records from [facility] from previous delivery. To [facility] mailbox for upcoming [facility] visit on 03/06/23. Danin Wan RN documented in this encounter [facility] 02-06-2023 Note HNO ID: [id number] Author: Sophia Haywood Ma Service: ? Author Type: ? Type: Progress Notes Filed: 02/06/2023 10:37 AM Note Text: Patient here for First Trimester Screening. See ultrasound report for details. Options for genetic screening and diagnosis discussed with the patient. Patient opts for first trimester screening and the sequential screening protocol. Limitations of screening tests discussed with the patient. Angélica Lima MD [facility] 02-06-2023 Miscellaneous Notes Formattin g of this [...] Angélica Lima MD documented in this encounter [facility] 02-06-2023 History of Presen t illness Narrative Patient here for First Trimester Screening. See ultrasound report for details. Options for genetic screening and diagnosis discussed with the patient. Patient opts for first trimester screening and the sequential screening protocol. Limitations of screening tests discussed with the patient. Angélica Lima MD documented in this encounter [facility] 02-06-2023 Instructions Sophia Haywood Ma - 02/06/2023 10:10 AM EDT SEQUENTIAL SCREENINGS The [facility] offers sequential screenings for women who are [...] It will require an appointment with our veterinary surgery technician. This is not an ultrasound performed [...] the above symptoms, contact our office at [phone] and ask to speak with a nurse. After hours, you can call doctors registry at [phone] OR call [facility] at [phone] and ask to have the doctor commanding officer traffic division paged. If you consider this an emergency, dial or go to your nearest emergency department. NEED HELP? Are you dealing with a violent or abusive relationship? Are you a victim of rape or sexual assult? Call [facility] ([place]) 24 hour Crisis Hotline: 254.656.5866 or 726-690-1397. MANUAL Your Guide to a Healthy manual is now on-line. Visit [email or web address]/HealthyPre gnancyGuide to download your free copy SEQUENTIAL TESTING PROCESS Sequential Screen First Trimester Today you are currently: 12w1d weeks 02/06/2023: Ultrasound and blood test. Sequential Screen Second Trimester (16-17 Weeks Gestation) When you are called with your results, the nurse will give the optimal draw dates for the Sequential screen second trimester. Blood testing can be done at any [facility] lab. Please report to the any financial services professional office front desk team member for the Sequential Part 2 requisition and [...] medicine office, for east side please call [phone] or for the West side call [phone] and ask for the the nurse. Thank you. documented in this encounter [facility] 01-11-2023 Miscellaneous Notes Formattin g of this note might be different from the original. risk assessment form complete Ros Boogie RN documented in this encounter [facility] 01-09-2023 Note HNO ID: [id number] Author: Gunjan Blackwood MD Service: ? Author [...] use: No Multivitamin with Folic acid: Yes Episcopalian or heritage: No Would refuse blood transfusion [...] Your guide to a health and the [employer] Material. Tra (more content not included)... [facility] 01-09-2023 History of Presen t illness Narrative [...] use: No Multivitamin with Folic acid: Yes Episcopalian or heritage: No Would refuse blood transfusion [...] Your guide to a health and the [employer] Material. Discussed aneuploidy and carrier screening. Regarding aneuploidy [...] Gunjan Blackwood MD documented in this encounter [facility] 01-09-2023 Instructions Beverly Rios Ma - 01/09/2023 1:03 PM EDT Please select the following link to access the [facility] Your Guide to a Healthy . [email or web address] documented in this encounter [facility] 01-04-2023 Note HNO ID: [id number] Author: Christa Jane RN Service: ? Author [...] None, Apgar5: None, Living: None, Comments: None [facility] 12-20-2022 Miscellaneous Notes Formattin g of this note might be different from the original. PNOB scheduled. Marguerite Saucedo RN Left message for patient to return phone call. Patient has an appointment with Dr Blackwood for NOB appointment. Please schedule PNOB appointment. documented in this encounter [facility] 09-30-2022 Note HNO ID: [id number] Author: Donny Madden APRN.PHYSICAL TESTING SUPERVISOR Service: ? Author Type: Nurse Practitioner Type: [...] - STREP A MOLECULAR (POC) Donny Madden APRN.[facility] 09-30-2022 History of Presen t [...] - STREP A MOLECULAR (POC) Donny Madden APRN.PHYSICAL TESTING SUPERVISOR documented in this encounter [facility] 08-03-2022 Miscellaneous Notes Formattin g of this [...] Discussed expected course of illness Pratibha Amaro APRN.PHYSICAL TESTING SUPERVISOR documented in this encounter [facility] 08-02-2022 History of Presen t illness Narrative [...] Pratibha Amaro APRN.CNP documented in this encounter [facility] 08-02-2022 Instructions Pratibha Amaro APRN.CNP - 08/02/2022 [...] to your local emergency facility: Notify the explosive operator that you are seeking care for [...] concerning to you. documented in this encounter [facility] documented as of this encounter (statuses as of 03/15/2023) [facility] History of Past illness Narrative* Problem Noted Date Diagnosed Date Resolved Date Miscarriage, threatened, early 06/22/2021 03/06/2023 documented as of this encounter (statuses as of 03/28/2023) [address]10-2021 History of Past illness Narrative* Problem Noted Date Diagnosed Date Resolved Date Miscarriage, threatened, early 06/22/2021 03/06/2023 documented as of this encounter (statuses as of 03/29/2023) [facility] History of Past illness Narrative* Problem Noted Date Diagnosed Date Resolved Date Miscarriage, threatened, early 06/22/2021 03/06/2023 documented as of this encounter (statuses as of 03/29/2023) [facility] History of Past illness Narrative* Problem Noted Date Diagnosed Date Resolved Date Miscarriage, threatened, early 06/22/2021 03/06/2023 documented as of this encounter (statuses as of 04/02/2023) [facility] History of Past illness Narrative* Problem Noted Date Diagnosed Date Resolved Date Miscarriage, threatened, early 06/22/2021 03/06/2023 documented as of this encounter (statuses as of 04/24/2023) [address]10-2021 History of Past illness Narrative* Problem Noted Date Diagnosed Date Resolved Date Miscarriage, threatened, early 06/22/2021 03/06/2023 documented as of this encounter (statuses as of 04/26/2023) [address]10-2021 History of Past illness Narrative* Problem Noted Date Diagnosed Date Resolved Date Miscarriage, threatened, early 06/22/2021 03/06/2023 documented as of this encounter (statuses as of 04/26/2023) [address]10-2021 History of Past illness Narrative* Problem Noted Date Diagnosed Date Resolved Date Miscarriage, threatened, early 06/22/2021 03/06/2023 documented as of this encounter (statuses as of 04/27/2023) [address]10-2021 History of Past illness Narrative* Problem Noted Date Diagnosed Date Resolved Date Miscarriage, threatened, early 06/22/2021 03/06/2023 documented as of this encounter (statuses as of 04/30/2023) [address]10-2021 History of Past illness Narrative* Problem Noted Date Diagnosed Date Resolved Date Miscarriage, threatened, early 06/22/2021 03/06/2023 documented as of this encounter (statuses as of 05/24/2023) [address]10-2021 History of Past illness Narrative* Problem Noted Date Diagnosed Date Resolved Date Miscarriage, threatened, early 06/22/2021 03/06/2023 documented as of this encounter (statuses as of 05/25/2023) [address]10-2021 History of Past illness Narrative* Problem Noted Date Diagnosed Date Resolved Date Miscarriage, threatened, early 06/22/2021 03/06/2023 documented as of this encounter (statuses as of 06/12/2023) [address]10-2021 History of Past illness Narrative* Problem Noted Date Diagnosed Date Resolved Date Miscarriage, threatened, early 06/22/2021 03/06/2023 documented as of this encounter (statuses as of 06/21/2023) [address]10-2021 History of Past illness Narrative* Problem Noted Date Diagnosed Date Resolved Date Miscarriage, threatened, early 06/22/2021 03/06/2023 documented as of this encounter (statuses as of 07/04/2023) [address]10-2021 History of Past illness Narrative* Problem Noted Date Diagnosed Date Resolved Date Miscarriage, threatened, early 06/22/2021 03/06/2023 documented as of this encounter (statuses as of 08/02/2023) [address]10-2021 History of Past illness Narrative* Problem Noted Date Diagnosed Date Resolved Date Miscarriage, threatened, early 06/22/2021 03/06/2023 documented as of this encounter (statuses as of 08/02/2023) [facility] Suspected COVID-19 virus infection- Primary [facility] Diagnosis Strep throat- Primary Streptococcal sore throat Sore throat Acute pharyngitis [facility] Diagnosis Supervision of other high risk pregnancies, first trimester- Primary with uncertain dates in first trimester Screening for cervical cancer Screening for malignant neoplasm of the cervix Encounter for screening of mother Unspecified screening History of delivery, currently in first trimester 8 weeks gestation of state, incidental [facility] Diagnosis of unknown anatomic location- Primary state, incidental [facility]* Diagnosis Encounter for (NT) nuchal translucency scan- Primary Other specified screening Encounter for screening of mother Unspecified screening Supervision of other high risk pregnancies, first trimester 12 weeks gestation of state, incidental [facility] Diagnosis Encounter for supervision of other normal , first trimester- Primary 12 weeks gestation of state, incidental Encounter for screening of mother Unspecified screening [facility] Diagnosis History of delivery- Primary Supervision of high risk in second trimester Unspecified high-risk 17 weeks gestation of state, incidental [facility] Diagnosis Encounter for anatomic survey- Primary [facility] Diagnosis 19 weeks gestation of - Primary state, incidental Supervision of high risk in second trimester Unspecified high-risk [facility] Diagnosis Encounter for anatomic survey- Primary 18 weeks gestation of state, incidental History of delivery, currently with history of pre-term labor Obesity affecting in second trimester, unspecified obesity type [facility]* Diagnosis Insect stings, accidental or unintentional, initial encounter- Primary Leg swelling Swelling of limb [facility] Diagnosis 23 weeks gestation of - Primary state, incidental Supervision of high risk in second trimester Unspecified high-risk History of delivery [facility] Diagnosis Supervision of high risk in second trimester- Primary Unspecified high-risk 23 weeks gestation of state, incidental History of delivery [facility] Diagnosis 24 weeks gestation of - Primary state, incidental Short cervix affecting Cervical shortening, unspecified as to episode of care or not applicable [facility] Diagnosis 27 weeks gestation of - Primary state, incidental Supervision of high risk in second trimester Unspecified high-risk Need for vaccination Need for prophylactic vaccination and inoculation against unspecified single disease 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 [facility]* Diagnosis Abnormal glucose complicating - Primary Abnormal maternal glucose tolerance, complicating , childbirth, or the puerperium, unspecified as to episode of care [facility]* Diagnosis 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 [facility] Diagnosis Supervision of high risk in third trimester- Primary Unspecified high-risk 31 weeks gestation of state, incidental 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 History of delivery [facility]* Diagnosis 33 weeks gestation of - Primary state, incidental Supervision of high risk in third trimester Unspecified high-risk Encounter for prophylactic immunotherapy for respiratory syncytial virus (RSV) [facility]* Diagnosis Supervision of other high risk , antepartum- Primary 37 weeks gestation of state, incidental Positive GBS test documented in this encounter [facility] for referral (narrative)* Diagnostic Procedure Only (Routine) - Authorized Specialty Diagnoses / Procedures Referred By Contac t Referred To Contact [facility] Diagnoses Supervision of other high risk pregnancies, first trimester History of delivery, currently in first trimester Procedures OBSTETRIC ULTRASOUND WHI US PREG UTERUS AFTER 1ST TRIMEST GESTATION Gunjan Blackwood MD [address] [place] [address] [facility] [address] [place] [id number] Referral ID Status Reason Start Date Expiration Date Visits Requested Visits Authorized [id number] Authorized Auto-Generat ed Referral 01/09/2023 01/09/2024 1 1 * Consult, Test, Treat (Routine) - Authorized Specialty Diagnoses / Procedures Referred By Contac t Referred To Contact Diagnoses Supervision of other high risk pregnancies, first trimester History of delivery, currently in first trimester Procedures CONSULT TO MATERNAL MEDI OFFICE/OUTPATIENT NEW HIGH MDM 60-74 MINUTES Gunjan Blackwood MD [address] [place] [address] Referral ID Status Reason Start Date Expiration Date Visits Requested Visits Authorized [id number] Authorized PCP Requested Referral Auto-Generate d Referral 01/09/2023 01/09/2024 1 1 * Diagnostic Procedure Only (Routine) - Authorized Specialty Diagnoses / Procedures Referred By Contac t Referred To Contact [facility] Diagnoses Encounter for screening of mother Supervision of other high risk pregnancies, first trimester Procedures NUCHAL TRANSLUCENCY WHI US NUCHAL TRANSLUCENCY 1ST GESTATION Gunjan Blackwood MD [address] [place] [address] [facility] [employer] [place] [address] Referral ID Status Reason Start Date Expiration Date Visits Requested Visits Authorized [id number] Authorized Auto-Generat ed Referral 01/09/2023 01/09/2024 1 1 [facility] for referral (narrative)* Diagnostic Procedure Only (Routine) - Authorized Specialty Diagnoses / Procedures Referred By Contac t Referred To Contact [facility] Diagnoses Encounter for anatomic survey Procedures OBSTETRIC ULTRASOUND WHI US PREG UTERUS AFTER 1ST TRIMEST 1 GESTATION Gunjan Blackwood MD [address] [place] [address] [facility] [place] [address] Referral ID Status Reason Start Date Expiration Date Visits Requested Visits Authorized [id number] Authorized Auto-Generat ed Referral 03/27/2023 03/26/2024 1 1 [facility] ([facility] Diagnostic Procedure Only (Routine) - Authorized Specialty Diagnoses / Procedures Referred By Contac t Referred To Contact [facility] Diagnoses 23 weeks gestation of History of delivery Procedures OBSTETRIC ULTRASOUND WHI US PREG UTERUS AFTER 1ST TRIMEST 1 GESTATION Diana Kauffman APRN.CNM [address] [place] [address] [address] Referral ID Status Reason Start Date Expiration Date Visits Requested Visits Authorized [id number] Authorized Auto-Generat ed Referral 04/26/2023 04/25/2024 1 1 [facility] Summary Purpose Family History No Family History [...] De La Garza MD [address] [place] [address] [address] Referral ID Status Reason Start Date Expiration Date Visits Requested Visits Authorized [id number] Pending Review PCP Requested Referral Auto-Generate d Referral 3 05/23/2024 1 1 Additional Source Comments INFORMATION SOURCE (unrecogn ized section and content) DATE CREATED AUTHOR AUTHOR'S ORGANIZ ATION 09/07/2023 [facility] Source Comments (unrecognize d section and content) In the event this informatio n is protected by the Federal Confidentiality of Alcohol and Drug Abuse Patient Records regulations: The Federal rules restrict any use of the information to criminally investigate or prosecute any alcohol or drug abuse patient.[facility] Campus[facility] the event this information is protected by the Federal Confidentiality of Alcohol and Drug Abuse Patient Records regulations: The Federal rules restrict any use of the information to criminally investigate or prosecute any alcohol or drug abuse patient.[facility] CampusIn the event this information is protected by the Federal Confidentiality of Alcohol and Drug Abuse Patient Records regulations: The Federal rules restrict any use of the information to criminally investigate or prosecute any alcohol or drug abuse patient.[facility] CampusIn the event this information is protected by the Federal Confidentiality of Alcohol and Drug Abuse Patient Records regulations: The Federal rules restrict any use of the information to criminally investigate or prosecute any alcohol or drug abuse patient.[facility] CampusIn the event this information is protected by the Federal Confidentiality of Alcohol and Drug Abuse Patient Records regulations: The Federal rules restrict any use of the information to criminally investigate or prosecute any alcohol or drug abuse patient.[facility] CampusIn the event this information is protected by the Federal Confidentiality of Alcohol and Drug Abuse Patient Records regulations: The Federal rules restrict any use of the information to criminally investigate or prosecute any alcohol or drug abuse patient.[facility] CampusIn the event this information is protected by the Federal Confidentiality of Alcohol and Drug Abuse Patient Records regulations: The Federal rules restrict any use of the information to criminally investigate or prosecute any alcohol or drug abuse patient.[facility] CampusIn the event this information is protected by the Federal Confidentiality of Alcohol and Drug Abuse Patient Records regulations: The Federal rules restrict any use of the information to criminally investigate or prosecute any alcohol or drug abuse patient.[facility] CampusIn the event this information is protected by the Federal Confidentiality of Alcohol and Drug Abuse Patient Records regulations: The Federal rules restrict any use of the information to criminally investigate or prosecute any alcohol or drug abuse patient.[facility] CampusIn the event this information is protected by the Federal Confidentiality of Alcohol and Drug Abuse Patient Records regulations: The Federal rules restrict any use of the information to criminally investigate or prosecute any alcohol or drug abuse patient.[facility] CampusIn the event this information is protected by the Federal Confidentiality of Alcohol and Drug Abuse Patient Records regulations: The Federal rules restrict any use of the information to criminally investigate or prosecute any alcohol or drug abuse patient.[facility] CampusIn the event this information is protected by the Federal Confidentiality of Alcohol and Drug Abuse Patient Records regulations: The Federal rules restrict any use of the information to criminally investigate or prosecute any alcohol or drug abuse patient.[facility] CampusIn the event this information is protected by the Federal Confidentiality of Alcohol and Drug Abuse Patient Records regulations: The Federal rules restrict any use of the information to criminally investigate or prosecute any alcohol or drug abuse patient.[facility] CampusIn the event this information is protected by the Federal Confidentiality of Alcohol and Drug Abuse Patient Records regulations: The Federal rules restrict any use of the information to criminally investigate or prosecute any alcohol or drug abuse patient.[facility] CampusIn the event this information is protected by the Federal Confidentiality of Alcohol and Drug Abuse Patient Records regulations: The Federal rules restrict any use of the information to criminally investigate or prosecute any alcohol or drug abuse patient.[facility] CampusIn the event this information is protected by the Federal Confidentiality of Alcohol and Drug Abuse Patient Records regulations: The Federal rules restrict any use of the information to criminally investigate or prosecute any alcohol or drug abuse patient.[facility] CampusIn the event this information is protected by the Federal Confidentiality of Alcohol and Drug Abuse Patient Records regulations: The Federal rules restrict any use of the information to criminally investigate or prosecute any alcohol or drug abuse patient.[facility] CampusIn the event this information is protected by the Federal Confidentiality of Alcohol and Drug Abuse Patient Records regulations: The Federal rules restrict any use of the information to criminally investigate or prosecute any alcohol or drug abuse patient.[facility] CampusIn the event this information is protected by the Federal Confidentiality of Alcohol and Drug Abuse Patient Records regulations: The Federal rules restrict any use of the information to criminally investigate or prosecute any alcohol or drug abuse patient.[facility] CampusIn the event this information is protected by the Federal Confidentiality of Alcohol and Drug Abuse Patient Records regulations: The Federal rules restrict any use of the information to criminally investigate or prosecute any alcohol or drug abuse patient.[facility] CampusIn the event this information is protected by the Federal Confidentiality of Alcohol and Drug Abuse Patient Records regulations: The Federal rules restrict any use of the information to criminally investigate or prosecute any alcohol or drug abuse patient.[facility] CampusIn the event this information is protected by the Federal Confidentiality of Alcohol and Drug Abuse Patient Records regulations: The Federal rules restrict any use of the information to criminally investigate or prosecute any alcohol or drug abuse patient.[facility] CampusIn the event this information is protected by the Federal Confidentiality of Alcohol and Drug Abuse Patient Records regulations: The Federal rules restrict any use of the information to criminally investigate or prosecute any alcohol or drug abuse patient.[facility] CampusIn the event this information is protected by the Federal Confidentiality of Alcohol and Drug Abuse Patient Records regulations: The Federal rules restrict any use of the information to criminally investigate or prosecute any alcohol or drug abuse patient.[facility] CampusIn the event this information is protected by the Federal Confidentiality of Alcohol and Drug Abuse Patient Records regulations: The Federal rules restrict any use of the information to criminally investigate or prosecute any alcohol or drug abuse patient.[facility] CampusIn the event this information is protected by the Federal Confidentiality of Alcohol and Drug Abuse Patient Records regulations: The Federal rules restrict any use of the information to criminally investigate or prosecute any alcohol or drug abuse patient.[facility] CampusIn the event this information is protected by the Federal Confidentiality of Alcohol and Drug Abuse Patient Records regulations: The Federal rules restrict any use of the information to criminally investigate or prosecute any alcohol or drug abuse patient.[facility] Reason for Visit (unrecogniz ed section and content) Specialty Diagnoses / Procedures Referred By Contac t Referred To Contact [facility] Diagnoses Encounter for screening of mother Supervision of other high risk pregnancies, first trimester Procedures NUCHAL TRANSLUCENCY WHI US NUCHAL TRANSLUCENCY 1ST GESTATION Gunjan Blackwood MD [address] [place] [address] [address] Referral ID Status Reason Start Date Expiration Date V isits Requested Visits Authorized [id number] Closed Auto-Generate d Referral 01/09/2023 01/09/2024 1 1 Reason Comments Fever Fever, congestion, f atigue, bodyaches and loss of taste x 2 days-positive home COVID Reason Comments Results Reason Comments Sore Throat X 4 days Reason Comments Future Appointment Reason Comments Initial OB Visit Reason Comments Phd Intern - Other risk a ssessment form Reason Onset Date Comments Care 02/06/2023 Reason Comments Received Outside Medical Records Specialty Diagnoses / Procedures Referred By Contac t Referred To Contact [facility] Diagnoses 16 weeks gestation of Supervision of high risk in second trimester Procedures OBSTETRIC ULTRASOUND WHI US PREG UTERUS AFTER 1ST TRIMEST GESTATION Gunjan Blackwood MD [address] [place] [address] [facility] [place] [address] Referral ID Status Reason Start Date Expiration Date V isits Requested Visits Authorized [id number] Closed Auto-Generate d Referral 03/06/2023 03/05/2024 1 1 Reason Comments Orders Reason Onset Date Comments Care 03/29/2023 Specialty Diagnoses / Procedures Referred By Contac t Referred To Contact [facility] Diagnoses Encounter for anatomic survey Procedures OBSTETRIC ULTRASOUND WHI US PREG UTERUS AFTER 1ST TRIMEST GESTATION Gunjan Blackwood MD [address] [place] [address] [address] Referral ID Status Reason Start Date Expiration Date V isits Requested Visits Authorized [id number] Closed Auto-Generate d Referral 03/27/2023 03/26/2024 1 1 Reason Comments Phd Intern - Other 2nd ri sk assessment form submitted at 20 wks. Kate Murdock RN Reason Comments Insect Bite R inner thigh bee st ing x2 days Reason Onset Date Comments Care 04/26/2023 Reason Comments Orders Specialty Diagnoses / Procedures Referred By Contac t Referred To Contact [facility] Diagnoses 23 weeks gestation of History of delivery Procedures OBSTETRIC ULTRASOUND WHI US PREG UTERUS AFTER 1ST TRIMEST GESTATION Diana Kauffman, URSULA.[facility] [address] [place] [address] [address] Referral ID Status Reason Start Date Expiration Date V isits Requested Visits Authorized [id number] Closed Auto-Generate d Referral 04/26/2023 04/25/2024 1 1 Reason Onset Date Comments Care 05/24/2023 Reason Comments Care Specialty Diagnoses / Procedures Referred By Contac t Referred To Contact 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 Procedures CONSULT TO MEDICAL GENETICS - MEDICAL GENETICS COUNSELING EACH 30 MINUTES Quang De La Garza MD [address] [place] [address] [address] Referral ID Status Reason Start Date Expiration Date Visits Requested Visits Authorized [id number] Pending Review PCP Requested Referral Auto-Generate d Referral 3 05/23/2024 1 1 Reason Onset Date Comments Care 06/21/2023 Reason Onset Date Comments Care 07/04/2023 Reason Onset Date Comments Care 08/01/2023 Reason Comments Question (OB Question) Care Teams (unrecognized sec tion and content) Identification Officer Relationship Specialty Start Date End Date Nikko Zimmerman MD PCP - General Family Medicine 04/19/16 Identification Officer Relationship Specialty Start Date End Date Nikko Zimmerman MD PCP - General Family Medicine 04/19/16 Identification Officer Relationship Specialty Start Date End Date Nikko Zimmerman MD PCP - General Family Medicine 04/19/16 Identification Officer Relationship Specialty Start Date End Date Nikko Zimmerman MD PCP - General Family Medicine 04/19/16 Identification Officer Relationship Specialty Start Date End Date Nikko Zimmerman MD PCP - General Family Medicine 04/19/16 Identification Officer Relationship Specialty Start Date End Date Nikko Zimmerman MD PCP - General Family Medicine 04/19/16 Identification Officer Relationship Specialty Start Date End Date Nikko Zimmerman MD PCP - General Family Medicine 04/19/16 Identification Officer Relationship Specialty Start Date End Date Nikko Zimmerman MD PCP - General Family Medicine 04/19/16 Identification Officer Relationship Specialty Start Date End Date Nikko Zimmerman MD PCP - General Family Medicine 04/19/16 Identification Officer Relationship Specialty Start Date End Date Nikko Zimmerman MD PCP - General Family Medicine 04/19/16 Identification Officer Relationship Specialty Start Date End Date Nikko Zimmerman MD PCP - General Family Medicine 04/19/16 Identification Officer Relationship Specialty Start Date End Date Nikko Zimmerman MD PCP - General Family Medicine 04/19/16 Identification Officer Relationship Specialty Start Date End Date Nikko Zimmerman MD PCP - General Family Medicine 04/19/16 Identification Officer Relationship Specialty Start Date End Date Nikko Zimmerman MD PCP - General Family Medicine 04/19/16 Identification Officer Relationship Specialty Start Date End Date Nikko Zimmerman MD PCP - General Family Medicine 04/19/16 Identification Officer Relationship Specialty Start Date End Date Nikko Zimmerman MD PCP - General Family Medicine 04/19/16 Identification Officer Relationship Specialty Start Date End Date Nikko Zimmerman MD PCP - General Family Medicine 04/19/16 Identification Officer Relationship Specialty Start Date End Date Nikko Zimmerman MD PCP - General Family Medicine 04/19/16 Identification Officer Relationship Specialty Start Date End Date Nikko Zimmerman MD PCP - General Family Medicine 04/19/16 Identification Officer Relationship Specialty Start Date End Date Nikko Zimmerman MD PCP - General Family Medicine 04/19/16 Identification Officer Relationship Specialty Start Date End Date Nikko Zimmerman MD PCP - General Family Medicine 04/19/16 Identification Officer Relationship Specialty Start Date End Date Nikko Zimmerman MD PCP - General Family Medicine 04/19/16 Identification Officer Relationship Specialty Start Date End Date Nikko Zimmerman MD PCP - General Family Medicine 04/19/16 Identification Officer Relationship Specialty Start Date End Date Nikko [...] BE BASED ON THE PRIMARY CLINICAL RECORDS. [facility]. provides no warranty or guarantee of the accuracy or completeness of information in this document.
[2023-09-16] MEDS: 0.9% Normal Saline (1000mL) 1,000 ML 125 ML IV ×2 (05:30→11:39)
[2023-09-16] MEDS: Piperacil/Tazobactam 3.375 GM in 0.9% Normal Saline (50mL MB+) 50 ML IV ×3 (05:32→21:42)
[2023-09-16] MEDS: 0.9% Normal Saline (250mL Bag) 250 ML 15 ML IV (05:33)
[2023-09-16 05:59] LABS: Absolute Lymphocyte Count 2.23 X10^3/uL (0.83-4.51); Absolute Neutrophil Count 6.8 X10^3/uL (2.0-7.7); Basophil# 0.05 X10^3/uL; Basophil% 0.5 % (0-1); Eosinophil# 0.18 X10^3/uL; Eosinophils% 1.8 % (0-5); Hematocrit 38.8 % (37-47); Hemoglobin 12.4 g/dL (12.0-15.0); Lymphocyte # 2.23 X10^3/ul (0.83-4.51); Mean Corpuscular Hgb 30.5 pg (27.0-32.0); Mean Corpuscular Volume 95.6 fL (81-99); Mean Platelet Vol. 10.3 fl (6.2-12.0); Monocyte# 0.87 X10^3/uL; Monocyte% 8.6 % (0-10); NRBC Flagged by Analyzer 0 % (0-5); Neutrophil # 6.76 X10^3/uL (2.7-7.7); Neutrophil % 66.8 % (47-70); Platelet Count 316 K/mm3 (150-450); RBC Distribution Width CV 12.2 % (11.6-14.6); RBC Distribution Width SD 43.3 fl (35.1-43.9); Red Blood Count 4.06 M/mm3 (4.2-5.4); White Blood Count 10.1 K/mm3 (4.4-11.0)
[2023-09-16 06:48] LABS: ALB/GLOB Ratio 1.2 RATIO (0.9-2.4); AST(SGOT) 549 U/L (15-37); Alanine Aminotransfer ALT/SGPT 269 U/L (13-56); Albumin, Serum 3.6 g/dL (3.2-5.0); Alkaline Phosphatase 279 U/L (45-117); Anion Gap 3 (5-15); BUN 14 mg/dL (7-18); BUN/Creat Ratio 20.3 RATIO (10-20); Calcium,Total 9.3 mg/dL (8.5-10.1); Chloride 109 mmol/L (98-107); Creatinine, Serum 0.69 mg/dL (0.55-1.02); EST Glomerular Filtration Rate 110 mL/min (>60); Est Glom Filt Rate - Afr Amer 133 mL/min (>60); Estimated Creatinine Clearance 114.56 ml/min; Globulin 3.1 g/dL (2.2-4.2); Glucose 101 mg/dL (74-106); Potassium 3.6 mmol/L (3.5-5.1); Protein, Total 6.7 g/dL (6.4-8.2); Sodium Level 138 mmol/L (136-145)
--- NOTE | 2023-09-16 08:00 | US_ITS ---
EXAM: US ABDOMEN LIMITED, RIGHT UPPER QUADRANT CLINICAL INDICATION: RUQ pain, elevated LFT - TECHNIQUE: Real-time ultrasound of the right upper quadrant with image documentation. COMPARISON: CT abdomen and pelvis, 09/16/2023. FINDINGS: LIVER: Echogenic focus in the right hepatic lobe measuring 2.1 cm in maximal diameter. No intrahepatic biliary ductal dilation. GALLBLADDER: The gallbladder is full of stones resulting in a wall echo shadow sign. No pericholecystic fluid. Negative sonographic Jimenez''s sign. COMMON BILE DUCT: Normal as visualized. The proximal common bile duct is within normal limits for the patient''s age. PANCREAS: Normal as visualized. No focal abnormality is demonstrated in the pancreas. No pancreatic ductal dilatation. RIGHT KIDNEY: No significant abnormality. There is no hydronephrosis. No shadowing calculus. No focal lesion or perinephric collection is demonstrated. US/Abdomen Limited IMPRESSION: 1. Echogenic focus in the right hepatic lobe measuring 2.1 cm in maximal diameter. This is nonspecific although most commonly due to focal fatty infiltration. 2. The gallbladder is full of stones resulting in a wall echo shadow sign. No secondary signs of cholecystitis. Electronically Signed: Omar Rodriguez DO at 17:04 EST ,
--- NOTE | 2023-09-16 09:50 | PN.SURG_ITS ---
Subjective Subjective The patient still reports some discomfort in the epigastric and right upper quadrant. Denies nausea or vomiting. Objective Data Objective Data Vital Signs: Vital Signs Temp Pulse Resp BP Pulse Ox O2 Del Method 98.5 F 80 16 116/62 96 Room Air 09/16/23 08:16 09/16/23 08:16 09/16/23 08:16 09/16/23 08:16 09/16/23 08:16 09/16/23 08:16 Oxygen Delivery Method Room Air Weight: 160 lb 0.889 oz Body Mass Index (BMI) 30.2 Intake & Output: Intake and Output for Last 24 Hours 09/14/23 09/15/23 09/16/23 23:59 23:59 23:59 Intake Total 50 / 50 Balance 50 / 50 Lab / Micro Data 09/16/23 05:34 09/16/23 05:34 Labs: Laboratory Results - last 24 hr 09/15/23 22:50: WBC 12.9 H, RBC 3.91 L, Hgb 12.3, Hct 37.9, MCV 96.9, MCH 31.5, MCHC 32.5, RDW Std Deviation 43.8, RDW Coeff of Megha 12.2, Plt Count 333, MPV 10 .2, Immature Gran % (Auto) 0.300, Neut % (Auto) 74.3 H, Lymph % (Auto) 16.4 L, [place] % (Auto) 7.6, Eos % (Auto) 1.2, Baso % (Auto) 0.2, Absolute Neuts (auto) 9.6 H, Absolute Lymphs (auto) 2.11, Nucleated RBC % 0, Sodium 142, Potassium 3.8, Chloride 112 H, Carbon Dioxide 26.0, Anion Gap 4 L, BUN 17, Creatinine 0.78, Estim Creat Clear Calc 102.28, Est GFR (MDRD) Af Amer 117, Est GFR (MDRD) Non-Af 97, BUN/Creatinine Ratio 21.9 H, Glucose 103, Calcium 9.0, Total Bilirubin 0.40, Direct Bilirubin 0.21, AST 190 H, ALT 75 H, Alkaline Phosphatase 257 H, Troponin I High Sens 5, Total Protein 6.8, Albumin 3.6, Globulin 3.2, Lipase 53 09/16/23 05:34: WBC 10.1, RBC 4.06 L, Hgb 12.4, Hct 38.8, MCV 95.6, MCH 30.5, MCHC 32.0, RDW Std Deviation 43.3, RDW Coeff of Megha 12.2, Plt Count 316, MPV 10.3, Immature Gran % (Auto) 0.300, Neut % (Auto) 66.8, Lymph % (Auto) 22.0, [place] % (Auto) 8.6, Eos % (Auto) 1.8, Baso % (Auto) 0.5, Absolute Neuts (auto) 6.8, Absolute Lymphs (auto) 2.23, Nucleated RBC % 0, Sodium 138, Potassium 3.6, Chloride 109 H, Carbon Dioxide 26.0, Anion Gap 3 L, BUN 14, Creatinine 0.69, Estim Creat Clear Calc 114.56, Est GFR (MDRD) Af Amer 133, Est GFR (MDRD) Non-Af 110, BUN/Creatinine Ratio 20.3 H, Glucose 101, Calcium 9.3, Total Bilirubin 1.70 H, AST 549 H, ALT 269 H, Alkaline Phosphatase 279 H, Total Protein 6.7, Albumin 3.6, Globulin 3.1, Albumin/Globulin Ratio 1.2 Radiography Diagnostic Testing: Radiology Impression Chest X-Ray 09/15/23 22:59 IMPRESSION: Normal x-ray examination of the chest. Electronically Signed: Wen Earl MD at 23:30 EST Reading Location ID and State: [place] / [place] , Service support , Abdomen/Pelvis CT 09/15/23 23:53 IMPRESSION: Constipation with signs of mild right-sided colitis. No acute appendicitis or bowel obstruction. Unremarkable abdominal viscera. Electronically Signed: Wen Earl MD at 1:17 EST Reading Location ID and State: [place] / [employer] [place] , Service support , Physical Exam Const oriented x3 and no apparent distress Resp normal respiratory effort GI soft to palpation Palpation: tender RUQ Assessment & Plan Assessment/Plan (1) Elevated liver enzymes: PLAN: The patient had further increase of her LFTs this morning. Ultrasound was not able to be done yet. Reviewing the CT yesterday it appears that her biliary radicles were mildly dilated on the CT scan. I think there is a high likelihood that she has choledocholithiasis causing obstruction. I recommended ERCP with possible stent placement. I also have her scheduled tomorrow for laparoscopic cholecystectomy with cholangiograms. I discussed ERCP with her in detail. I discussed the risks including but not limited to bleeding, infection, perforation of the bile duct or the bowel, pancreatitis. Patient understands all the risks and is willing to proceed. I also discussed laparoscopic cholecystectomy with her. She is in agreement with the plan to proceed with that tomorrow. Jose Mata MD Pager: [facility] [address] [place] [address] [address] [place] [address] Office:
[2023-09-16 10:03] LABS: Internal QC Validated? YES +Cl - CLEAR BKGD; Pregnancy, Urine Negative Negative
--- NOTE | 2023-09-16 10:20 | RAD_ITS ---
EXAM: FL ERCP Biliary and Pancreatic Ductal Systems HISTORY: Biliary dilatation, elevated bilirubin COMPARISON: CT scan from earlier today TECHNIQUE: Endoscope placed by Dr. Mata. 2 fluoroscopic images obtained, fluoroscopy dose of 49.3 mGy FINDINGS: Endoscope noted in the duodenum with cannulization of the ampulla of Vater. A wire was placed into the biliary tree and contrast injected. No significant biliary dilatation noted. A sphincterotomy was performed. RAD/ERCP Biliary/Pancreas IMPRESSION: ERCP with sphincterotomy Electronically Signed: Jake Tan MD at 11:15 EST ,
--- NOTE | 2023-09-16 10:58 | PN_ITS ---
Progress Note I took the patient back for ERCP. There was definitely something blocking the duct. It was difficult to get past with a guidewire. I was able to get past it and do a sphincterotomy and performed several sweeps of the common bile duct. I was not able to identify the stone after it was removed. There was good emptying of the common bile duct and a large sphincterotomy so any small stone should pass. I will admit her back to the floor and start her on clears and keep her n.p.o. after midnight. Awaiting ultrasound to see if there are more s tones in the gallbladder. Recheck LFTs and CBC in the morning. Continue antibiotics. Jose Mata MD Pager: [facility] [address] [place] [address] [address] [place] [address] Office:
--- NOTE | 2023-09-16 11:06 | OP.ERCP_ITS ---
Patient Name: Corrie Green Procedure Date: 09/16/2023 9:42 AM Date of : 2000 Age: 22 Procedure: ERCP Indications: Elevated liver enzymes Providers: Jose Mata MD Referring MD: Jose Mata MD Medicines: Propofol per Anesthesia Complications: No immediate complications. Estimated blood loss: Minimal. Procedure: Pre-Anesthesia Assessment: - Prior to the procedure, a History and Physical was performed, and patient medications and allergies were reviewed. The patient's tolerance of previous anesthesia was also reviewed. The risks and benefits of the procedure and the sedation options and risks were discussed with the patient. All questions were answered, and informed consent was obtained. Prior Anticoagulants: The patient has taken no anticoagulant or antiplatelet agents. After reviewing the risks and benefits, the patient was deemed in satisfactory condition to undergo the procedure. After obtaining informed consent, the scope was passed under direct vision. Throughout the procedure, the patient's blood pressure, pulse, and oxygen saturations were monitored continuously. The Duodenoscope was introduced through the mouth, and advanced to the duodenum and used for direct visualization of the bile duct. The ERCP was accomplished without difficulty. The patient tolerated the procedure well. Scope In: 10:22:50 AM Scope Out: 10:43:53 AM Total Procedure Duration Time 0 hours 21 minutes 3 seconds Findings: The major papilla was bulging. A 0.035 inch x 260 cm straight Dreamwire was passed into the biliary tree. The sphincterotome was passed over the guidewire and the bile duct was then deeply cannulated. Contrast was injected. I personally interpreted the bile duct images. The lower third of the main bile duct was partially obstructed by what appeared to be a stone. Biliary sphincterotomy was made with a monofilament sphincterotome using ERBE electrocautery. There was no post-sphincterotomy bleeding. To discover objects, the biliary tree was swept with a 12 mm balloon starting at the bifurcation. One stone was removed. No stones remained. The endoscope was withdrawn from the patient. Impression: - The major papilla appeared to be bulging. - Choledocholithiasis with a partial obstruction was found. Complete removal was accomplished by biliary sphincterotomy and balloon extraction. - A biliary sphincterotomy was performed. - The biliary tree was swept. Recommendation: - [facility] to [facility] care. Procedure Code(s): --- Professional --- 42400, Endoscopic retrograde cholangiopancreatography (ERCP); with removal of calculi/debris from biliary/pancreatic duct(s) 34267, Endoscopic retrograde cholangiopancreatography (ERCP); with sphincterotomy/papillotomy Diagnosis Code(s): --- Professional --- K80.51, Calculus of bile duct without cholangitis or cholecystitis with obstruction R74.8, Abnormal levels of other serum enzymes K83.8, Other specified diseases of biliary tract CPT copyright 2021 [employer]. All rights reserved. The codes documented in this report are preliminary and upon refinery operator coking review may be revised to meet current compliance requirements. Jose Mata MD 09/16/2023 11:05:22 AM This report has been signed electronically. Number of Addenda: 0 Note Initiated On: 09/16/2023 9:42 AM
--- NOTE | 2023-09-16 11:06 | OP.CCLET_ITS ---
09/16/2023 No Primary Care Physician Re : ERCP procedure for Corrie Green Dear Care Physician This procedure was performed on Saturday, September 16, 2023. My impressions and recommendations are as follows: Impressions : - The major papilla appeared to be bulging. - Choledocholithiasis with a partial obstruction was found. Complete removal was accomplished by biliary sphincterotomy and balloon extraction. - A biliary sphincterotomy was performed. - The biliary tree was swept. Recommendations : - [facility] to [facility] care. My findings are described in the full procedure note, which is enclosed. If I can be of further assistance, please feel free to contact me at Doctor phone number(s): , Work: . Sincerely, Jose Mata MD 09/16/2023 11:05:22 AM This report has been signed electronically.
--- NOTE | 2023-09-16 14:34 | NURSING ---
This RN texted Dr. Mata to inform him that Ultrasound is not here today and will be in tomorrow at 7am. Dr. Mata is aware and asked how pt is feeling. Ele pts nurse is answering that questions per [employer].
[2023-09-17] VITALS (12 sets, daily range): BP systolic 101–130; BP diastolic 62–84; PULSE 58–94; RESP 16–18; TEMP 36.5–36.9; O2SAT 96–98; BMI 30.2
[2023-09-17] MEDS: 0.9% Normal Saline (1000mL) 1,000 ML 125 ML IV ×2 (00:11→09:59)
[2023-09-17] MEDS: Piperacil/Tazobactam 3.375 GM in 0.9% Normal Saline (50mL MB+) 50 ML IV (06:05)
[2023-09-17 06:15] LABS: Absolute Lymphocyte Count 2.37 X10^3/uL (0.83-4.51); Absolute Neutrophil Count 4.1 X10^3/uL (2.0-7.7); Basophil# 0.07 X10^3/uL; Basophil% 0.9 % (0-1); Eosinophil# 0.39 X10^3/uL; Eosinophils% 5.2 % (0-5); Hematocrit 34.7 % (37-47); Hemoglobin 10.9 g/dL (12.0-15.0); Lymphocyte # 2.37 X10^3/ul (0.83-4.51); Lymphocyte % 31.3 % (19-41); Mean Corp Hgb Conc 31.4 g/dL (32-36); Mean Corpuscular Hgb 30.9 pg (27.0-32.0); Mean Corpuscular Volume 98.3 fL (81-99); Mean Platelet Vol. 10.5 fl (6.2-12.0); Monocyte# 0.57 X10^3/uL; Monocyte% 7.5 % (0-10); NRBC Flagged by Analyzer 0 % (0-5); Neutrophil # 4.13 X10^3/uL (2.7-7.7); Neutrophil % 54.7 % (47-70); Platelet Count 271 K/mm3 (150-450); RBC Distribution Width CV 12.6 % (11.6-14.6); RBC Distribution Width SD 45.5 fl (35.1-43.9); Red Blood Count 3.53 M/mm3 (4.2-5.4); White Blood Count 7.6 K/mm3 (4.4-11.0)
[2023-09-17 06:56] LABS: ALB/GLOB Ratio 1.1 RATIO (0.9-2.4); AST(SGOT) 279 U/L (15-37); Alanine Aminotransfer ALT/SGPT 366 U/L (13-56); Albumin, Serum 3.2 g/dL (3.2-5.0); Alkaline Phosphatase 320 U/L (45-117); Anion Gap 5 (5-15); BUN 9 mg/dL (7-18); BUN/Creat Ratio 11.8 RATIO (10-20); Calcium,Total 8.6 mg/dL (8.5-10.1); Chloride 115 mmol/L (98-107); Creatinine, Serum 0.76 mg/dL (0.55-1.02); EST Glomerular Filtration Rate 98 mL/min (>60); Est Glom Filt Rate - Afr Amer 119 mL/min (>60); Estimated Creatinine Clearance 104.01 ml/min; Globulin 2.9 g/dL (2.2-4.2); Glucose 79 mg/dL (74-106); Lipase 67 U/L (13-75); Potassium 3.8 mmol/L (3.5-5.1); Protein, Total 6.1 g/dL (6.4-8.2); Sodium Level 143 mmol/L (136-145)
--- NOTE | 2023-09-17 08:17 | PN.SURG_ITS ---
Subjective Subjective Patient denies any pain this morning. Objective Data Objective Data Vital Signs: Vital Signs Temp Pulse Resp BP Pulse Ox O2 Del Method 97.7 F L 58 L 16 103/66 97 Room Air 09/17/23 04:00 09/17/23 04:00 09/17/23 04:00 09/17/23 04:00 09/17/23 04:00 09/17/23 04:00 Oxygen Delivery Method Room Air Weight: 160 lb 0.889 oz Body Mass Index (BMI) 30.2 Intake & Output: Intake and Output for Last 24 Hours 09/15/23 09/16/23 09/17/23 23:59 23:59 23:59 Intake Total 2348.75 / 2348.75 50 / 50 Balance 2348.75 / 2348.75 50 / 50 Lab / Micro Data 09/17/23 05:38 09/17/23 05:38 Labs: Laboratory Results - last 24 hr 09/16/23 09:45: Urine Test Negative 09/17/23 05:38: WBC 7.6, RBC 3.53 L, Hgb 10.9 L, Hct 34.7 L, MCV 98.3, MCH 30.9, MCHC 31.4 L, RDW Std Deviation 45.5 H, RDW Coeff of Megha 12.6, Plt Count 271, MPV 10.5, Immature Gran % (Auto) 0.400, Neut % (Auto) 54.7, Lymph % (Auto) 31.3, Medina % (Auto) 7.5, Eos % (Auto) 5.2 H, Baso % (Auto) 0.9, Absolute Neuts (auto) 4.1, Absolute Lymphs (auto) 2.37, Nucleated RBC % 0, Sodium 143, Potassium 3.8, Chloride 115 H, Carbon Dioxide 23.0, Anion Gap 5, BUN 9, Creatinine 0.76, Estim Creat Clear Calc 104.01, Est GFR (MDRD) Af Amer 119, Est GFR (MDRD) Non-Af 98, BUN/Creatinine Ratio 11.8, Glucose 79, Calcium 8.6, Total Bilirubin 1.10 H, AST 279 H, ALT 366 H, Alkaline Phosphatase 320 H, Total Protein 6.1 L, Albumin 3.2, Globulin 2.9, Albumin/Globulin Ratio 1.1, Lipase 67 Radiography Diagnostic Testing: Radiology Impression Abdomen Ultrasound 09/16/23 08:00 IMPRESSION: 1. Echogenic focus in the right hepatic lobe measuring 2.1 cm in maximal diameter. This is nonspecific although most commonly due to focal fatty infiltration. 2. The gallbladder is full of stones resulting in a wall echo shadow sign. No secondary signs of cholecystitis. Electronically Signed: Omar VCarolann Rodriguez DO at 17:04 EST , Endo Retro Cholangiopancreatogram 09/16/23 10:20 IMPRESSION: ERCP with sphincterotomy Electronically Signed: Jake Tan MD at 11:15 EST , Physical Exam Const oriented x3 and no apparent distress Resp normal respiratory effort Cardio regular rate and regular rhythm GI soft to palpation and non-tender Assessment & Plan Assessment/Plan (1) Elevated liver enzymes: (2) Cholelithiasis with choledocholithiasis: PLAN: Plan The patient denies any nausea or vomiting this morning. She denies any pain. She had ultrasound yesterday that showed cholelithiasis with somewhat gallstones they could not see the wall. I recommended laparoscopic cholecystectomy for today. I discussed this with her in detail. I discussed the procedure, the risks, benefits, and alternatives of the procedure. I discussed the risks including but not limited to bleeding, infection, injury to surrounding organs such as the liver, bile duct, bowels. I did discuss the possibility of having to convert to an open procedure as well as the possibility that if any injuries occurred this may necessitate further surgery at a tertiary care center. Jose Mata MD Pager: [facility] [address] [place] [address], [address] [place] [phone] Office:
--- NOTE | 2023-09-17 09:54 | NURSING ---
IBCLC spoke with nurse regarding patient and pumping. Nurse states patient has been nursing and has bottles of breast milk for when she goes to surgery. Nurse states that the patient brought her pump from home, and has been using it independently. Nurse or patient will call if they have any questions or concerns.
[2023-09-17] MEDS: 0.9% Normal Saline (1000mL) 1,000 ML 15 ML IV ×2 (10:29→13:12)
--- NOTE | 2023-09-17 11:00 | RAD_ITS ---
STUDY: INTRAOPERATIVE CHOLANGIOGRAM. REASON FOR EXAM: Female, 22 years old. Lap rachana with IOC FLUOROSCOPY TIME (if supplied): ( 7.8 seconds ) minutes/seconds. 2.81 mGy TECHNIQUE: An intraoperative cholangiogram was performed by the surgeon. Imaging was provided. COMPARISON: None. FINDINGS: The intra and extrahepatic biliary ducts are unremarkable. No intraluminal filling defect is seen. There is free flow of contrast into the duodenum. RAD/Cholangiogram/ O R,Initial IMPRESSION: Unremarkable intraoperative cholangiogram. Electronically Signed: Wing Mendoza MD at 12:46 EST ,
--- NOTE | 2023-09-17 11:00 | GALL_PTH ---
PATHOLOGY RESULTS PATIENT: COLLIN HWANG LOC: MS3 U#:[id number] AGE/SX: 22/F ROOM: PR320 RE09/16/[address]: Dr. Jose Mata MD : 2000 BED: 1 DIS: 09/17/2023 SPEC #: [id number] RECD: 09/17/23 12:57 STATUS: JULISSA DELGADO #: [id number] GANESH: 09/17/23 11:[address]: Jose Mata DEPT: SURGICAL PATHOLOGY RECD BY: Edwina Carson ENTERED: 09/17/23 13:34 SP TYPE: KRISH COYNE DR: No Primary Care Phys Tissues: Gallbladder, NOS Procedures: Surgery Specimen Level III HEADER OPERATION: Laparoscopic cholecystectomy with IOC PRE-OP DIAGNOSIS: Elevated liver enzymes TISSUE SUBMITTED: Gallbladder MICROSCOPIC DIAGNOSIS Gallbladder, cholecystectomy: Chronic cholecystitis and cholelithiasis. SJ:wendy 09/18/2023 MICROSCOPIC DESCRIPTION Slides are reviewed. GROSS DESCRIPTION Received is one container labeled with the patient's name and designated gallbladder. The specimen consists of a gallbladder measuring 7.5 cm in length and up to 3.0 cm in diameter. The external surface is pink-hernandez, smooth and glistening for the most part. Focally it is granular, hemorrhagic and contains cautery artifact. The gallbladder contains green-yellow mucoid bile and multiple yellow, mulberry stones measuring in aggregate 3.5 x 2.5 x 0.7 cm and 0.1 to 0.4 cm in greatest dimension. The mucosa is bile-stained and without any mass lesions. The gallbladder wall measures up to 0.2 cm in thickness. Library Information Technician sections from the gallbladder and the cystic duct are submitted in one cassette. / SJ:wendy 09/17/2023 TC:3 CPT: 92932
[2023-09-17] MEDS: Bupivacaine 0.25% 30 ML Vial (11:51)
--- NOTE | 2023-09-17 11:58 | OP.PCM_ITS ---
Problems Associated Problem List Diagnoses (1) Cholelithiasis with choledocholithiasis: Report of Operation Date of Procedure: 09/17/23 Pre-Operative Diagnosis: Cholelithiasis and history of choledocholithiasis Post-Operative Diagnosis: Same Surgery/Procedure Performed:: Laparoscopic cholecystectomy with cholangiograms Type of Anesthesia: General/Regional Specimen's removed: Gallbladder Estimated Blood Loss (mL): 10 Description of Procedure: After obtaining informed consent patient was brought back to the operating room. General anesthesia was induced. The abdomen was prepped and draped in usual sterile fashion. A small midline incision was made superior to the umbilicus and deepened to the level of fascia. The fascia was elevated and incised. Next the peritoneum was elevated and incised in the same fashion. Finger sweep was performed and the Collins trocar was placed into the abdomen. The balloon was inflated. The abdomen was inflated to 15 mmHg. Next a camera was introduced into the abdomen and the abdomen was inspected. Next under direct visualization three 5-mm ports were placed one subxiphoid and 2 subcostal. Next the gallbladder was elevated and retracted toward the right shoulder. The peritoneum was stripped from the gallbladder. The infundibulum was located and retracted laterally. Next the triangle of Calot was dissected and the cystic duct and cystic artery were identified. Cholangiograms were performed. The cystic duct was clipped proximally. A melvina was made with the scissors. Neck was small incision was made in the right upper quadrant with a scalpel. The Ranfac catheter was placed through this incision and into the abdomen under direct visualization. The needle was placed into the cystic duct and a clip was placed over it. Under fluoroscopy contrast was instilled into the gallbladder and the common duct, cystic duct as well as proximal hepatic ducts were i dentified. There was good filling of the duodenum. There were no filling defects noted in the common bile duct. The Clip was removed as well as the needle and the infundibulum was grasped once more. Three hemolock clips were placed across the cystic duct. The cystic duct was then divided leaving 2 clips on the stump. The cystic artery was clipped and divided in the same fashion. The hook cautery was then used to take the gallbladder off of the gallbladder bed. Hemostasis was obtained. Gallbladder fossa was irrigated and no active bleeding or bile leakage was noted. Next the camera was introduced in the subxiphoid port. An Endopouch bag was placed through the umbilical port and the gallbladder was placed into it. The gallbladder was then removed through the umbilical incision. The camera was then reinserted through the umbilical port. The gallbladder fossa was inspected once more and noted to be hemostatic with no leaking bile. The abdomen was suctioned dry. The 5 mm ports were removed under direct visualization. The umbilical port was then removed and the air was removed from the abdomen. Next using an 0 Vicryl suture the umbilical fascia was closed in a [id number] fashion. The umbilical port site was irrigated local anesthetic was administered to all the incisions. All the incisions were closed with interrupted subcuticular 4-0 Monocryl sutures followed by Steri- Strips and dressings. The patient was awoken and taken to PACU in stable condition. Admit VTE Documentation VTE Mechan Device Prophylaxis: SCD's
--- NOTE | 2023-09-17 12:15 | CASEMGMT ---
RN BRITTNEY Face to Face with patient for initial transition planning/care coordination assessment. RN CM introduced self and role at [facility]. Patient lying in bed, alert and oriented, family at bedside. Patient willing to participate in assessment and is able to answer all questions appropriately. Care providers, pharmacy, and demographics verified. Patient wishes to discharge home, denies need for home health at this time. Patient states he has no further needs or concerns at this time. CM to follow for discharge planning needs that may arise. PCP: No PCP, list provided Specialists: [facility] Preferred Pharmacy: [facility] retail Insurance: [facility] [employer] Prescription Benefit: yes Living Will/HPOA: none LNOK: Mother, significant other Living Arrangements: Patient lives with SO in single story home with 3-4 steps and railing to enter the home. Patient is independent at home. Transportation: self, SO, mother DME/HHC: Patient denies DME or previous HHC Disposition Plan: Patient to discharge home with family support and follow-up plans in place. Ele TREVIZON, RN, CM
--- NOTE | 2023-09-17 12:37 | DS.PCM_ITS ---
Providers Date of Admission: 09/17/23 Primary Care Physician: No Primary Care Phys Reason For Visit: ELEVATED LFT Diagnosis Discharge Diagnosis (1) Cholelithiasis with choledocholithiasis: Status: Acute Code(s): K80.70 - Calculus of gallbladder and bile duct without cholecystitis without obstruction Plan The patient denies any nausea or vomiting this morning. She denies any pain. She had ultrasound yesterday that showed cholelithiasis with somewhat gallstones they could not see the wall. I recommended laparoscopic cholecystectomy for today. I discussed this with her in detail. I discussed the procedure, the risks, benefits, and alternatives of the procedure. I discussed the risks including but not limited to bleeding, infection, injury to surrounding organs such as the liver, bile duct, bowels. I did discuss the possibility of having to convert to an open procedure as well as the possibility that if any injuries occurred this may necessitate further surgery at a tertiary care center. Jose Mata MD Pager: [facility] [address] [place] [address], [address] [place] [address] Office: Medications at Discharge Home Medications vit no.95-ferrous fumarate 28 mg-folic acid 800 mcg tablet () 1 tab PO DAILY 09/15/23 acetaminophen 325 mg tablet 650 mg (2 x 325 mg) PO Q4H PRN PRN Pain 1-10 Or Fever #0 tabs 09/17/23 oxycodone 5 mg tablet 5 - 10 mg (1 - 2 x 5 mg) PO Q4H PRN PRN Pain Score 4-10 5 days #20 tabs 09/17/23 Hospital Course Operations cholecystecomy and ERCP Summary of Care Provided Hospital Course: Patient was admitted with right upper quadrant pain. The following day her LFTs increased significantly. She was taken for ERCP with sweeping of the duct. With addition ultrasound showed multiple stones in her gallbladder. The following morning she was taken for laparoscopic cholecystectomy. As long as she tolerates diet after this she will be discharged home. Cholangiograms were negative for any retained stones. Weight / BMI Weight Weight: 160 lb 0.889 oz Body Mass Index (BMI) 30.2 ABG / Lab / Microbiology Data 09/17/23 05:38 09/17/23 05:38 Laboratory: Laboratory Results - last 24 hr 09/17/23 05:38: WBC 7.6, RBC 3.53 L, Hgb 10.9 L, Hct 34.7 L, MCV 98.3, MCH 30.9, MCHC 31.4 L, RDW Std Deviation 45.5 H, RDW Coeff of Megha 12.6, Plt Count 271, MPV 10.5, Immature Gran % (Auto) 0.400, Neut % (Auto) 54.7, Lymph % (Auto) 31.3, Norman % (Auto) 7.5, Eos % (Auto) 5.2 H, Baso % (Auto) 0.9, Absolute Neuts (auto) 4.1, Absolute Lymphs (auto) 2.37, Nucleated RBC % 0, Sodium 143, Potassium 3.8, Chloride 115 H, Carbon Dioxide 23.0, Anion Gap 5, BUN 9, Creatinine 0.76, Estim Creat Clear Calc 104.01, Est GFR (MDRD) Af Amer 119, Est GFR (MDRD) Non-Af 98, BUN/Creatinine Ratio 11.8, Glucose 79, Calcium 8.6, Total Bilirubin 1.10 H, AST 279 H, ALT 366 H, Alkaline Phosphatase 320 H, Total Protein 6.1 L, Albumin 3.2, Globulin 2.9, Albumin/Globulin Ratio 1.1, Lipase 67 Radiography Diagnostic Testing: Radiology Impression Abdomen Ultrasound 09/16/23 08:00 IMPRESSION: 1. Echogenic focus in the right hepatic lobe measuring 2.1 cm in maximal diameter. This is nonspecific although most commonly due to focal fatty infiltration. 2. The gallbladder is full of stones resulting in a wall echo shadow sign. No secondary signs of cholecystitis. Electronically Signed: Omar Rodriguez, at 17:04 EST , D/C Instructions Discharge Diet: Light diet - advance as tolerated Discharge Activity: May Not Drive (for 2-3 days or while taking narcotic pain medications.) and - (Do not drive, work heavy equipment or sign legal documents for 24 hours.) May shower in (days): 1 Lifting Restrictions: 20 lbs for 2 weeks Additional Activity Instructions: Pain medication may cause nausea. You should typically eat light foods as you take your pain medications. Pain medication may also cause constipation. If this is a problem for you, please discuss with your doctor. Call your doctor if your incision/area has: Continuous Slow Oozing, Sudden Increased Bleeding, Increased Pain/ Swelling, Increased Redness and Foul Smelling Discharge Call your doctor if you observe: Fever of 101 or Higher Suture Line Care: Avoid Pulling/Pushing and Avoid Pinching/Bending Remove Dressing in: 2 days Additional Dressing/Incision Instructions: Leave operative bandaids on for 2 days. When you remove dressing, leave Steri-Strips on until your follow-up appointment, or until the Steri-Strips fall off on their own. Please Follow Up With: Jose Mata MD When: Please call to schedule 2 week follow up appointment. [phone] Meaningful Use Info Meaningful Use Diagnoses (Choose all that apply): None applicable Discharge Plan Admission Admit Date/Time: 09/17/23 11:38 Attending Provider: Jose Mata Primary Care Provider: Care Physician,Diana Primary Discharge Orders/Prescriptions Prescriptions: New acetaminophen 325 mg Tablet 650 mg PO Q4H PRN PRN (Reason: Pain 1-10 Or Fever) Qty: 0 0RF oxycodone 5 mg Tablet 5 - 10 mg PO Q4H PRN PRN (Reason: Pain Score 4-10) 5 Days Qty: 20 0RF Continued PNV cmb#95-ferrous fumarate-FA [] 28 mg iron- 800 mcg tablet 1 tab PO DAILY Referrals / Follow Up: Care Physician,No Primary [Primary Care Provider] - Disposition Disposition (needs filled in before D/C Order can be placed): Home, Self Care
[2023-09-17] MEDS: Morphine 2 MG/ML Syringe IV (16:01)
[2023-09-17] MEDS: 0.9% Saline Lock 10 ML Syringe IV (16:02)
[2023-09-17] MEDS: oxyCODONE 5 MG Tablet PO (17:32)
== END 2023-09-17 19:44 | disposition home or self-care (01) | DRG 263 ==
LOC: ED 22:26 → MS3 09-16 04:45
PROVIDERS: Anesthesiology; Admitting Provider Surgery; Emergency Provider Student in an Organized Health Care Education/Training Program; Referring Provider Surgery; Visit Provider Surgery
PROC: (CPT 43260; principal; 2023-09-16 10:00)
DX: K80.65 Calculus of gallbladder and bile duct with chronic cholecystitis with obstruction (principal); Z14.1 Cystic fibrosis carrier; Z87.891 Personal history of nicotine dependence
CPT/HCPCS: 47563; 43262; 43264; 00790; 00732; 36415; 71045; 74177; 74300; 74330; 76000; 76705; 80048; 80053; 80076; 81025; 83690; 84484; 85025; 88304; 93005; 96361; 96365; 96366; 96375; 99221; 99284; J7030; J7050; Q9967; A4216; G0378; J2405